=== PATIENT | female | born 1960 | race African-American/Black ===

== ENCOUNTER 2021-11-30 19:41 | Emergency (ER) | payer MEDICARE, MEDICAID, SELFPAY ==
--- NOTE | ~2021-11-30 | XR_ITS ---
EXAMINATION: XR chest 2V Exam Date/Time: 11/30/2021 20:10 CDT CLINICAL HISTORY: LT ARM PAIN THIS MORNING INTO HER L SIDE CHEST Comparison: None available. RESULT: Lines, tubes, and devices: None. Lungs and pleura: Clear. Cardiomediastinal silhouette: Unremarkable cardiomediastinal silhouette. Other: No acute osseous or upper abdominal finding. IMPRESSION: No acute cardiopulmonary process Reviewed, dictated and finalized at location K.
--- NOTE | ~2021-11-30 | NM_ITS ---
EXAMINATION: NM pulmonary perfusion EXAM DATE: 12/01/2021 01:10 INDICATION: elevated d dimer, IV contrast allergy TECHNIQUE: A perfusion lung scan was performed. The patient was injected with 5 mCi technetium 99m M AA and imaged. The Modified PIOPED 2 criteria used for interpretation of this perfusion only study, w ith 3 possible interpretations (PE present, PE absent, nondiagnostic) based on findings present, and correlated with a recent chest x-ray. More specifically, a high probability scan will be interpreted as pulmonary embolism present. A normal or near normal scan will be interpreted as pulmonary embolism absent. And finally an intermediate probability scan will be interpreted as nondiagnostic. Correlat ion is made to chest x-ray from 11/30. FINDINGS: There are no segmental perfusion defects. IMPRESSION: Normal perfusion scan. Reviewed, dictated and finalized at location A. IMPRESSION: Normal perfusion scan.
[2021-11-30 19:37] VITALS: BP 158/81; PULSE 87; RESP 16; TEMP 36.9; O2SAT 99
--- NOTE | 2021-11-30 19:43 | ECG_ITS ---
Measurements Intervals [place] Rate: 75 P: 6 VT: 149 QRS: 12 QRSD: 83 T: 22 QT: 375 QTc: 421 Interpretive Statements SINUS RHYTHM BORDERLINE ST ABNORMALITY BORDERLINE ECG NO PREVIOUS ECG AVAILABLE FOR COMPARISON Electronically Signed On 12-01-2021 11:10:35 CDT by Antonio Lee M.D.
[2021-11-30 20:01] VITALS: BP 165/95; PULSE 84; RESP 20
[2021-11-30 20:09] LABS: Basophils Percent Auto 0.2 % (0.2-1.2); Hematocrit 35.9 % (37.0-47.0); Hemoglobin 11.6 g/dL (12.0-15.0); Immature Granulocyte Absolute 0.05 K/mm3 (0.00-0.031); Immature Granulocyte Percent A 0.3 % (0-0.5); Lymphocytes Percent Auto 2.9 % (18.3-44.2); Mean Corpuscular HGB Conc 32.3 g/dl (32-36); Mean Corpuscular Hemoglobin 29.4 pg (26-34); Mean Corpuscular Volume 90.9 fl (80-100); Mean Platelet Volume 9.2 fl (7.4-10.4); Monocytes Absolute Auto 0.4 K/mm3 (0.1-0.6); Monocytes Percent Auto 2.5 % (2.6-8.5); Neutrophils Absolute Auto 16.1 K/mm3 (1.3-6.7); Neutrophils Percent Auto 94.1 % (45.5-73.1); Platelet Count Result 340 k/mm3 (150-375); Red Blood Count 3.95 M/mm3 (4.2-5.4); Red Cell Distribution Width 14.4 % (11.5-14.5); White Blood Count 17.1 K/mm3 (4.5-10.0)
[2021-11-30 20:19] LABS: Prothrombin Time 13.2 Seconds (11.1-14.7)
[2021-11-30 20:20] VITALS: BP 161/92; PULSE 69; RESP 18; O2SAT 95
[2021-11-30 20:20] LABS: Partial Thromboplastin Time 24.3 SECONDS (22.3-36.8)
[2021-11-30 20:22] LABS: Alanine Aminotransferase 12 U/L (4-35); Albumin Level 4.9 g/dL (3.5-5.1); Alkaline Phosphatase 117 U/L (38-126); Anion Gap 11 mmol/L (8-16); Aspartate Amino Transferase 23 U/L (14-36); Bilirubin,Total 0.4 mg/dL (0.2-1.3); Blood Urea Nitrogen 9 mg/dL (7-17); Calcium 9.9 mg/dL (8.4-10.2); Carbon Dioxide 24 mmol/L (22-30); Chloride 103 mmol/L (98-107); Estimated CRCL calculation 83 ml/min; Estimated Glomerular Filt Rate > 60; Glucose 139 mg/dL (65-110); Lipase 113 U/L (23-300); Potassium 3.5 mmol/L (3.4-5.0); Sodium 138 mmol/L (137-145)
[2021-11-30 20:31] VITALS: BP 169/83; PULSE 77; RESP 12; O2SAT 96
[2021-11-30 20:34] LABS: Troponin I < 0.012 ng/mL (0.000-0.034)
--- NOTE | 2021-11-30 20:39 | ED.GENADULT ---
HPI - General Adult General Chief complaint: Chest Pain Stated complaint: left arm pain radiating to chest Time Seen by Provider: 11/30/21 19:44 Source: patient History of Present Illness HPI narrative: 61-year-old female presented to the emergency department for evaluation of left arm pain. Patient reports a history of osteoarthritis states that she began having pain in her fingers this morning. Patient states over the course of the day the pain progressed to her wrist elbow shoulder and now into her chest. Pain is very reproducible with palpation and movement. Patient does have history of rheumatoid arthritis. Patient did take [place] for pain control earlier. Patient also took gabapentin. Related Data Home Medications Medication Instructions Recorded Confirmed acetaminophen [Tylenol Arthritis] mg PO 11/30/21 albuterol sulfate [Ventolin HFA] INHALATION 11/30/21 alendronate mg PO 11/30/21 amlodipine 5 mg PO DAILY 11/30/21 clonazepam 11/30/21 clonidine HCl 0.2 mg PO BID 11/30/21 diclofenac sodium TOPICAL 11/30/21 fluticasone propionate INTRANASAL 11/30/21 folic acid 1 mg PO DAILY 11/30/21 furosemide 80 mg PO DAILY 11/30/21 gabapentin 400 mg PO TID 11/30/21 hydrocodone-acetaminophen 11/30/21 11/30/21 levothyroxine 88 mcg PO DAILY 11/30/21 losartan 11/30/21 montelukast mg 11/30/21 pantoprazole PO 11/30/21 potassium chloride 20 meq PO DAILY 11/30/21 prednisone 1 mg PO DAILY 11/30/21 rivaroxaban [Xarelto] mg 11/30/21 tiotropium-olodaterol [Stiolto INHALATION 11/30/21 Respimat] triamcinolone acetonide TOPICAL 11/30/21 Allergies Allergy/AdvReac Type Severity Reaction Status Date / Time Iodinated Contrast Media Allergy Anaphylactic Verified 11/30/21 20:55 Shock iohexol Allergy Anaphylactic Verified 11/30/21 20:46 [From contrast - CT, X-RAY] Shock Review of Systems Review of Systems: CONSTITUTIONAL: Denies fever, chills, or sweats. EYES: Denies visual changes, redness, or discharge. ENT: Denies rhinorrhea, congestion, sore throat, or otalgia. CARDIOVASCULAR: Denies chest pain, palpitations, or edema. RESPIRATORY: Denies cough or dyspnea. GASTROINTESTINAL: Denies abdominal pain, nausea, vomiting, or diarrhea. GENITOURINARY: Denies dysuria or hematuria. SKIN: Denies rash or itching. MUSCULOSKELETAL: Left arm pain NEUROLOGIC: Denies headache, numbness, or weakness. Exam Narrative: APPEARANCE: Well appearing, no pain, no distress, well-nourished. HEAD: normocephalic, atraumatic. EYES: PERRLA/EOMI, conjunctivae clear. NOSE: Normal no drainage NECK: Supple. No adenopathy, no masses. RESPIRATORY: Airway patent, respirations nonlabored. Clear to auscultation bilaterally, no rales, rhonchi, wheezing. CARDIOVASCULAR: Regular rate and rhythm without murmurs rubs or gallops. ABDOMINAL: Soft, nontender, nondistended, normal bowel sounds MUSCULOSKELETAL: Moves all extremities. Reproducible left arm pain from fingertips to shoulder. Reproducible left shoulder pain with palpation NEURO: Alert. Cranial nerves II through XII intact. Grossly intact SKIN: Warm, dry. Normal Color Course Course Emergency Course: Patient does have a leukocytosis but patient is on daily prednisone. Patient's D-dimer was elevated. Patient has a dye allergy so VQ scan was ordered. VQ scan showed no evidence of pulmonary embolism. Patient had negative serial troponins. Patient's EKG showed normal sinus rhythm with no evidence of acute STEMI. Patient was updated on the results of her work-up. Patient will have close follow-up with her primary care physician. All questions and concerns were addressed patient was in no distress at time of discharge from the emerge department. Vital Signs Vital signs: Vital Signs Temperature 98.5 F 11/30/21 19:37 Pulse Rate 87 11/30/21 19:37 Respiratory Rate 16 11/30/21 19:37 Blood Pressure 158/81 H 11/30/21 19:37 Pulse Oximetry 99 11/30/21 19:37 Temperature 98.5 F
[2021-11-30] MEDS: ASPIRIN 81 MG CHEWABLE TABLET 324 MG PO (20:45)
[2021-11-30 22:01] VITALS: BP 155/80; PULSE 63; RESP 24; O2SAT 97
[2021-11-30 23:04] LABS: Troponin I < 0.012 ng/mL (0.000-0.034)
[2021-12-01] VITALS: PULSE 71; RESP 16; O2SAT 97
[2021-12-01 02:01] VITALS: BP 147/85; PULSE 66; RESP 10; O2SAT 98
[2021-12-01 03:10] VITALS: BP 150/90; PULSE 63; RESP 16; O2SAT 97
== END 2021-12-01 03:10 | disposition home or self-care (01) ==
PROVIDERS: Emergency Provider Emergency Medicine; PCP Family Medicine
DX: M79.602 Pain in left arm (principal); Z79.01 Long term (current) use of anticoagulants; R94.31 Abnormal electrocardiogram [ECG] [EKG]
CPT/HCPCS: 36415; 71046; 78580; 80053; 83690; 84484; 85025; 85380; 85610; 85730; 93005; 99284; A9270; A9540

== ENCOUNTER 2022-07-27 02:01 | Observation (INO) | payer MEDICARE, MEDICAID, SELFPAY ==
[2022-07-27] VITALS (15 sets, daily range): BP systolic 107–143; BP diastolic 61–85; PULSE 58–118; RESP 12–31; TEMP 36.4–36.7; O2SAT 97–100; BMI 29.9; BMI 30.3
--- NOTE | ~2022-07-27 | CT_ITS ---
EXAMINATION: CT abdomen pelvis wo con DATE: 07/27/2022 03:11 INDICATION: Epigastric abdominal pain. Nausea, vomiting, and diarrhea. TECHNIQUE: Computed tomography (CT) of the abdomen and pelvis was performed without intravenous contr ast. Automated exposure control and iterative reconstruction technique were employed. The dose-length product was 476.10 mGy-cm. COMPARISON: None. FINDINGS: The visualized portions of the lung bases demonstrate mild atelectasis. No pleural effusion . The heart size is normal. No pericardial effusion. There is a small sliding hiatal hernia. The live r is normal. There is a gallstone in the gallbladder, which is normal in size. Calcifications in the spleen are consistent with old granulomatous disease. The pancreas, adrenal glands, and left kidney a re normal. There is a 2 mm stone in right kidney. Calcified uterine fibroids are noted. There are no dilated loops of bowel. There is prominent fat deposition in the villanueva of the ascending and transvers e colon, likely secondary to obesity. The appendix is normal. There are no pathologically enlarged ly mph nodes. There is no free intraperitoneal fluid. There is mild thoracolumbar spondylosis. IMPRESSION: 1. Cholelithiasis. No evidence of acute cholecystitis. 2. Small sliding hiatal hernia. Reviewed, dictated and finalized at location A. E WORKER
--- NOTE | ~2022-07-27 | US_ITS ---
EXAMINATION: US abdomen limited DATE: 07/27/2022 10:53 INDICATION: Acute versus chronic cholecystitis. TECHNIQUE: Multiple grayscale and Doppler ultrasound images of the abdomen were obtained. COMPARISON: CT dated 07/27/2022 FINDINGS: The pancreatic head and body are normal in appearance. The pancreatic tail is not visualized. Visual ized portion of the proximal to mid abdominal aorta and inferior vena cava are normal. Liver has norm al echogenicity and contour, with a smooth surface. No liver lesion identified. No intrahepatic bilia ry duct dilation suspected. Portal venous flow was seen in the hepatopetal, normal direction and has normal Doppler waveform. Visualized portion of the right kidney demonstrates normal contour and echog enicity with no hydronephrosis. 4.1 cm peripherally echogenic and shadowing gallstone at the fundus o f the otherwise normal-appearing gallbladder with no dilation wall thickening to suggest acute cholec ystitis. Sonographic Marrufo sign was reported as negative by the tire man. The common bile duct me asures 4 mm, which is normal. IMPRESSION: 1. Cholelithiasis. Reviewed, dictated and finalized at location A. OMICS CONSULTANT IMPRESSION: 1. Cholelithiasis.
--- NOTE | ~2022-07-27 | XR_ITS ---
EXAMINATION: XR chest 1V portable DATE: 07/27/2022 02:42 INDICATION: Chest pain. TECHNIQUE: A single frontal view of the chest was obtained. COMPARISON: Chest 2 views 11/30/2021, CT abdomen and pelvis 07/27/2022 FINDINGS: There is no pneumonia, pleural effusion, or pneumothorax. The heart size is normal. IMPRESSION: 1. No acute cardiopulmonary disease. Reviewed, dictated and finalized at location A. ETOLOGIST
--- NOTE | 2022-07-27 02:03 | ECG_ITS ---
Measurements Intervals [place] Rate: 109 P: 27 MS: 132 QRS: 42 QRSD: 77 T: 78 QT: 303 QTc: 409 Interpretive Statements SINUS TACHYCARDIA NONSPECIFIC ST & T-WAVE ABNORMALITY ABNORMAL RHYTHM ECG NO PREVIOUS ECG AVAILABLE FOR COMPARISON Electronically Signed On 07-27-2022 6:24:46 LABORER/KEY MAN by Johan Cummins M.D.
--- NOTE | 2022-07-27 02:23 | ED.CHESTPAIN ---
HPI - Chest Pain General Chief Complaint: Chest Pain Stated Complaint: BACK AND CHEST PAIN Related Data Home Medications Medication Instructions Recorded Confirmed acetaminophen 650 mg mg PO 11/30/21 tablet,extended release albuterol sulfate 90 mcg/actuation inhalation 11/30/21 aerosol inhaler (Ventolin HFA) alendronate 70 mg tablet mg PO 11/30/21 amlodipine 5 mg tablet 5 mg PO DAILY 11/30/21 clonazepam 0.5 mg tablet 11/30/21 clonidine HCl 0.2 mg tablet 0.2 mg PO BID 11/30/21 diclofenac sodium 1 % topical gel topical 11/30/21 fluticasone propionate 50 intranasal 11/30/21 mcg/actuation nasal spray,suspension folic acid 1 mg tablet 1 mg PO DAILY 11/30/21 furosemide 80 mg tablet 80 mg PO DAILY 11/30/21 gabapentin 400 mg capsule 400 mg PO TID 11/30/21 hydrocodone 7.5 mg-acetaminophen 11/30/21 11/30/21 325 mg tablet levothyroxine 88 mcg tablet 88 mcg PO DAILY 11/30/21 losartan 50 mg tablet 11/30/21 montelukast 10 mg tablet mg 11/30/21 pantoprazole 40 mg tablet,delayed PO 11/30/21 release potassium chloride 20 mEq 20 meq PO DAILY 11/30/21 tablet,extended release prednisone 1 mg tablet 1 mg PO DAILY 11/30/21 rivaroxaban 20 mg tablet (Xarelto) mg 11/30/21 tiotropium 2.5 mcg-olodaterol 2.5 inhalation 11/30/21 mcg/actuation mist for inhalation (Stiolto Respimat) triamcinolone acetonide 0.1 % topical 11/30/21 topical ointment Allergies Allergy/AdvReac Type Severity Reaction Status Date / Time Iodinated Contrast Media Allergy Severe Other Verified 07/27/22 02:09 iohexol Allergy Severe Other Verified 07/27/22 02:09 [From contrast - CT, X-RAY] morphine Allergy Intermediate Itching Verified 07/27/22 02:09 Contrast Media Allergy Severe Other Uncoded 07/27/22 02:09 [facility] [place] Family History Family History (System 04/16/22 @ 11:04 by Arley Haque) Mother Family history of glaucoma Family history of rheumatoid arthritis Family history of arthritis Sibling Asthma Father Family history of alcoholism Grandparent Carcinoma of colon Other Family history of thyroid disease Social History Social History (System 04/16/22 @ 11:04 by Arley Haque) Smoking status: Never smoker Alcohol intake: never Course Course Emergency Course: Patient states she does have a history of lupus is currently on methotrexate and prednisone Discussed with Dr. Leach presentation work-up recommends admission of the patient with patient started on Zosyn Discussed with Dr. Marroquin agrees with admission Discussed with patient and family results of workup and diagnosis. Discussed need for admission. Patient and family understand and agree to current treatment plan Vital Signs Vital signs: Vital Signs Temperature 97.9 F 07/27/22 01:59 Pulse Rate 117 H 07/27/22 01:59 Respiratory Rate 20 07/27/22 01:59 Blood Pressure 143/85 H 07/27/22 01:59 Pulse Oximetry 98 07/27/22 01:59 Oxygen Delivery Room Air 07/27/22 01:59 Temperature 97.9 F 07/27/22 01:59 Pulse Rate 81 07/27/22 05:27 Respiratory Rate 18 07/27/22 05:27 Blood Pressure 107/67 07/27/22 05:27 Pulse Oximetry 98 07/27/22 05:27 Oxygen Delivery Room Air 07/27/22 01:59 MDM - Chest Pain Lab Data 07/27/22 02:09 07/27/22 02:09 Labs: Lab Results 07/27/22 07/27/22 07/27/22 Range/Units 02:09 02:09 02:48 WBC 13.3 H (4.5-10.0) K/mm3 RBC 4.39 (4.2-5.4) M/mm3 Hgb 12.3 (12.0-15.0) g/dL Hct 39.1 (37.0-47.0) % MCV 89.1 (80-100) fl MCH 28.0 (26-34) pg MCHC 31.5 L (32-36) g/dl RDW 14.4 (11.5-14.5) % Plt Count 310 (150-375) k/mm3 MPV 9.4 (7.4-10.4) fl Immature Gran % (Auto) 0.3 (0-0.5) % Neut % (Auto) 93.5 H (45.5-73.1) % Lymph % (Auto) 5.0 L (18.3-44.2) % Lamb % (Auto) 1.0 L (2.6-8.5) % Eos % (Auto) 0.1 (0-4.4) % Baso % (Auto) 0.1 L (0.2-1.2) % Lymph # (Auto) 0.67 L (0.9-3.2) K/m
[2022-07-27 02:25] LABS: Basophils Percent Auto 0.1 % (0.2-1.2); Eosinophils Percent Auto 0.1 % (0-4.4); Hematocrit 39.1 % (37.0-47.0); Hemoglobin 12.3 g/dL (12.0-15.0); Immature Granulocyte Absolute 0.04 K/mm3 (0.00-0.031); Immature Granulocyte Percent A 0.3 % (0-0.5); Lymphocytes Absolute Auto 0.67 K/mm3 (0.9-3.2); Mean Corpuscular HGB Conc 31.5 g/dl (32-36); Mean Corpuscular Volume 89.1 fl (80-100); Mean Platelet Volume 9.4 fl (7.4-10.4); Monocytes Absolute Auto 0.1 K/mm3 (0.1-0.6); Neutrophils Absolute Auto 12.4 K/mm3 (1.3-6.7); Neutrophils Percent Auto 93.5 % (45.5-73.1); Platelet Count Result 310 k/mm3 (150-375); Red Blood Count 4.39 M/mm3 (4.2-5.4); Red Cell Distribution Width 14.4 % (11.5-14.5); White Blood Count 13.3 K/mm3 (4.5-10.0)
[2022-07-27 02:43] LABS: Alanine Aminotransferase 46 U/L (6-35); Albumin Level 4.8 g/dL (3.5-5.1); Alkaline Phosphatase 110 U/L (38-126); Anion Gap 11 mmol/L (8-16); Aspartate Amino Transferase 157 U/L (14-36); Bilirubin,Total 0.8 mg/dL (0.2-1.3); Blood Urea Nitrogen 6 mg/dL (7-17); Calcium 9.5 mg/dL (8.4-10.2); Carbon Dioxide 26 mmol/L (22-30); Chloride 102 mmol/L (98-107); Estimated CRCL calculation 82 ml/min; Estimated Glomerular Filt Rate > 60; Glucose 134 mg/dL (65-110); Lipase 134 U/L (23-300); Potassium 3.4 mmol/L (3.4-5.0); Sodium 139 mmol/L (137-145)
[2022-07-27] MEDS: SODIUM CHLORIDE 0.9% IV 1,000 ML 999 ML IV CONT (02:49)
[2022-07-27] MEDS: ONDANSETRON INJ 4 MG/2 ML VIAL IV PUSH (02:49)
[2022-07-27 02:53] LABS: Troponin I < 0.012 ng/mL (0.000-0.034)
[2022-07-27 03:09] LABS: INR 1.1; Partial Thromboplastin Time 23.2 SECONDS (22.3-36.8); Prothrombin Time 13.7 Seconds (11.1-14.7)
[2022-07-27 03:31] LABS: Influenza A QL RT-PCR Negative (Negative); Influenza B QL RT-PCR Negative (Negative); SARS-CoV-2 RNA PCR Negative
[2022-07-27 05:26] LABS: Troponin I 0.013 ng/mL (0.000-0.034)
--- NOTE | 2022-07-27 06:31 | ADMGEN ---
This patient, Betsy Mena, was admitted to [facility] Surg Room 332-01 at 0615. Patient/family oriented to hospital policies and general routines including ID bracelet, bed and alarms, visiting hours, pain management, procedures, bathroom and other care routines, personal items, smoking policy, room service/diet, and visiting hours. Information on how to activate the Rapid Response Team has been discussed. Patient/Family are encouraged to report perceived risks to care and to ask questions if they do not understand what they are told or what they should do.
[2022-07-27] MEDS: SODIUM CHLORIDE 0.9% IV 1,000 ML 125 ML IV CONT ×2 (08:55→19:40)
--- NOTE | 2022-07-27 09:17 | PM.IMHP ---
H&P: HPI History of Present Illness Date/Time: 07/27/22 09:17 Chief Complaint: Right upper quadrant pain, vomiting Narrative: 62-year-old female with a history of hypertension, RA, lupus, Sjogren syndrome, COPD and DVT. Patient presents to the ER on 07/27/2022. Patient states that in the video tape editor hours she had developed diffuse back pain and thought she had COVID. Patient stated that she had tried repositioning how she was laying in bed to ease her pain without success. Patient called EMS and patient arrived to the ED. during this time patient had 2 bouts of emesis and her pain had moved from her back to the epigastric/right upper quadrant area. Patient describes the pain as a gnawing abdominal pain. Patient also had associated shortness of breath and exhalation pain. Her previous medial included ice cream, chocolate cake and Del noodles. Chest x-ray revealed no acute cardiopulmonary process. CT abdomen pelvis revealed gallbladder distension containing 2.5 cm calculus, thickening villanueva of the ascending and transverse colon, cannot exclude colitis. General surgery consulted. Abdominal ultrasound revealed cholelithiasis. On admission patient white blood cell count was 17.1, hemoglobin 11.6, and D-dimer 1.2. Patient put on NPO and IV fluids initiated. Patient started Zosyn, Zofran and Protonix. Possible surgery planned for tomorrow. Will monitor patient's white blood cell count. Appreciate General surgery's consultation and recommendations. Patient denies current abdominal pain, nausea, vomiting, fever, diarrhea, chest pain and shortness of breath. Review of Systems Review of Systems: All systems reviewed & are unremarkable except as noted in HPI and below [facility] Past Medical History Medical History (Updated 07/27/22 @ 16:02 by Fanny Gallagher PA-C) COPD (chronic obstructive pulmonary disease) History of DVT (deep vein thrombosis) 2019 History of TIA (transient ischemic attack) 2006 Hypertension Lupus Peripheral vascular disease Rheumatoid arthritis Sjogren syndrome with dental involvement Surgical History Surgical History History of laparotomy x2 for ectopic pregnancies Family History Family History (Updated 07/27/22 @ 16:02 by Fanny Gallagher PA-C) Mother Family history of glaucoma Family history of rheumatoid arthritis Family history of arthritis Diabetes mellitus Sibling Asthma Father Family history of alcoholism Grandparent Carcinoma of colon Other Family history of thyroid disease Social History Social History (Updated 07/27/22 @ 16:03 by Fanny Gallagher PA-C) Social History: Patient lives alone in a apartment without pets. Patient states that she drinks 1 glass of wine 1 time a month and does not partake in nicotine/tobacco products or illicit drugs. Smoking status: Never smoker Second hand tobacco smoke exposure: No Alcohol intake: current Drinks per week: 1 Substance use: never Substance use type: does not use Lack of Transportation: YES Lack of Food: Often True Current Housing: I Have Housing Concerned About Future Housing: No Difficulty Paying Gas/Electric Bills: YES Difficulty Paying for Meds: No Currently Unemployed: No Education: Associate Degree Difficulty w/ Childcare or Family Care: No Spiritual care concerns: No Meds Home Medications and Allergies Home Medications Medication Instructions Recorded Confirmed Type acetaminophen 650 mg 650 mg PO PRN PRN Pain 11/30/21 07/27/22 History tablet,extended release albuterol sulfate 90 mcg/actuation 90 mcg inhalation DAILY 11/30/21 07/27/22 History aerosol inhaler (Ventolin HFA) alendronate 70 mg tablet 70 mg PO DAILY 11/30/21 07/27/22 History clonidine HCl 0.2 mg tablet 0.2 mg PO BID 11/30/21 07/27/22 History diclofenac sodium 1 % topical gel 1 g topical DAILY 11/30/21 07/27/22 History fluticasone propionate 5
[2022-07-27 09:26] LABS: Troponin I < 0.012 ng/mL (0.000-0.034)
--- NOTE | 2022-07-27 09:41 | PM.CNGS ---
Assessment and Plan Assessment and plan (1) Cholelithiasis: Code(s): K80.20 - Calculus of gallbladder without cholecystitis without obstruction Status: Acute Assessment and Plan: CT scan reviewed and has been read by our Radiologist now this morning. Virtual radiologist suggested a 2.5 cm gallstone with gallbladder distention and possible wall thickening of the ascending and transverse colon, possible colitis. Our Radiologist this morning read the CT as cholelithiasis with no evidence of acute cholecystitis. There is also mention of prominent fat deposition int he villanueva of the ascending and transverse colon likely secondary to obesity. Patient's back pain and abdominal pain has completely resolved. Her WBC count was 13,300 and AST/ALT were slightly elevated. She is also on steroids which could account for the slight increase in her WBC count. Will order a RUQ abdominal ultrasound today to further evaluate for acute cholecystitis. Discussed surgical versus conservative treatment options and that we will decide on a definitive treatment plan after reviewing the ultrasound results. Will keep her NPO for now with IV fluids and analgesics as needed. (2) Elevated LFTs: Code(s): R79.89 - Other specified abnormal findings of blood chemistry Status: Acute Assessment and Plan: AST and ALT slightly elevated, new from most recent labs in November. Could be related to cholecystitis. See plan above. Monitor labs. (3) Immunosuppression due to drug therapy: Code(s): D84.821 - Immunodeficiency due to drugs; Z79.899 - Other fpc (current) drug therapy Status: Acute Assessment and Plan: On combination therapy for her Lupus and RA, including methotrexate, prednisone, hydroxychloroquine, and Orencia infusions. She receives Orencia infusions weekly, but skipped last week's dose due to being exposed to her grandchildren who tested positive for COVID. She was actually scheduled for her next infusion today. (4) Rheumatoid arthritis: Code(s): M06.9 - Rheumatoid arthritis, unspecified Status: Chronic (5) Anticoagulant long-term use: Code(s): Z79.01 - shelter (current) use of anticoagulants Status: Acute Assessment and Plan: Currently taking Xarelto for hx of DVT two years ago. Last took Xarelto 2 nights ago around 10:30 pm. Hold Xarelto for now. If Hospitalist wishes to add pharmacologic DVT prophylaxis, it is okay with our service to use prophylactic-dosed Lovenox. (6) Lupus: Code(s): M32.9 - Systemic lupus erythematosus, unspecified Status: Chronic (7) Hypertension: Code(s): I10 - Essential (primary) hypertension Status: Chronic (8) Peripheral vascular disease: Code(s): I73.9 - Peripheral vascular disease, unspecified Status: Chronic Assessment and Plan: Follows with a vascular surgeon. Reportedly for vascular disease and she believes she was referred to him after the DVTs. She sees Dr. Cooper at [facility]. She does report that he offered to place an IVC filter prior to her having a knee replacement that has not yet been scheduled. Will discuss with Dr. Leach. (9) History of DVT (deep vein thrombosis): Code(s): Z86.718 - Personal history of other venous thrombosis and embolism Status: Acute Assessment and Plan: Taking Xarelto. (10) Obesity (BMI 30-39.9): Code(s): E66.9 - Obesity, unspecified Status: Acute Assessment and Plan: Encouraged diet and lifestyle modifications to promote weight loss. She is already seeing a dietitian regarding a heart healthy diet and we have provided a low fat diet instruction sheet for her gallstones. Plan I have discussed the patient's case and plan of care with Dr. Leach. Thank you for allowing us to see the patient in consultation and we will continue to follow along with you. History of Present Illness Consult details Consult date: 07/27/22 Reason fo
[2022-07-27] MEDS: PANTOPRAZOLE SODIUM IV 40 MG VIAL IV PUSH ×2 (11:48→22:58)
[2022-07-27] MEDS: GABAPENTIN 400 MG CAPSULE PO (17:48)
[2022-07-27] MEDS: cloNIDine HCL 0.2 MG TABLET PO (17:50)
[2022-07-27] MEDS: ENOXAPARIN 40 MG/0.4 ML SYRINGE SUB-Q (21:03)
[2022-07-27] MEDS: TRIAMCINOLONE ACET 0.1% OINT 15 GM TUBE 0.1 APPLIC TOPICAL (21:04)
[2022-07-27] MEDS: MONTELUKAST SODIUM 10 MG TABLET PO (22:58)
[2022-07-28] MEDS: LEVOTHYROXINE SODIUM 88 MCG TABLET PO (05:46)
[2022-07-28 06:00] VITALS: BP 103/66; PULSE 52; RESP 20; TEMP 36.4; O2SAT 97
[2022-07-28 06:39] LABS: Basophils Percent Auto 0.2 % (0.2-1.2); Eosinophils Absolute Auto 0.1 K/mm3 (0-0.3); Eosinophils Percent Auto 0.8 % (0-4.4); Hematocrit 32.1 % (37.0-47.0); Hemoglobin 10.1 g/dL (12.0-15.0); Immature Granulocyte Absolute 0.03 K/mm3 (0.00-0.031); Immature Granulocyte Percent A 0.4 % (0-0.5); Lymphocytes Absolute Auto 1.17 K/mm3 (0.9-3.2); Lymphocytes Percent Auto 13.9 % (18.3-44.2); Mean Corpuscular HGB Conc 31.5 g/dl (32-36); Mean Corpuscular Hemoglobin 28.1 pg (26-34); Mean Corpuscular Volume 89.4 fl (80-100); Mean Platelet Volume 9.9 fl (7.4-10.4); Monocytes Absolute Auto 0.4 K/mm3 (0.1-0.6); Monocytes Percent Auto 4.3 % (2.6-8.5); Neutrophils Absolute Auto 6.8 K/mm3 (1.3-6.7); Neutrophils Percent Auto 80.4 % (45.5-73.1); Platelet Count Result 274 k/mm3 (150-375); Red Blood Count 3.59 M/mm3 (4.2-5.4); Red Cell Distribution Width 14.7 % (11.5-14.5); White Blood Count 8.4 K/mm3 (4.5-10.0)
[2022-07-28 06:51] LABS: Alanine Aminotransferase 125 U/L (6-35); Albumin Level 3.9 g/dL (3.5-5.1); Alkaline Phosphatase 101 U/L (38-126); Anion Gap 7 mmol/L (8-16); Aspartate Amino Transferase 100 U/L (14-36); Bilirubin,Total 0.6 mg/dL (0.2-1.3); Blood Urea Nitrogen 4 mg/dL (7-17); Calcium 8.9 mg/dL (8.4-10.2); Carbon Dioxide 24 mmol/L (22-30); Chloride 109 mmol/L (98-107); Estimated CRCL calculation 83 ml/min; Estimated Glomerular Filt Rate > 60; Glucose 121 mg/dL (65-110); Potassium 2.9 mmol/L (3.4-5.0); Sodium 140 mmol/L (137-145)
[2022-07-28 07:00] LABS: Lactic Acid Reflex 1.5 mmol/L (0.7-2.0)
[2022-07-28 08:00] VITALS: PULSE 52; RESP 20; O2SAT 97
[2022-07-28] MEDS: UMECLIDINIUM/VILANTEROL 62.5-25 MCG ELLIPTA 1 PUFF INHALATION (08:29)
[2022-07-28] MEDS: ALBUTEROL SULFATE (*SP) AEROSOL 1 PUFF INHALATION (08:29)
[2022-07-28] MEDS: cloNIDine HCL 0.2 MG TABLET PO ×2 (09:18→17:49)
[2022-07-28] MEDS: predniSONE 1 MG TABLET 4 MG PO (09:18)
[2022-07-28] MEDS: GABAPENTIN 400 MG CAPSULE PO ×2 (09:18→17:49)
[2022-07-28] MEDS: FUROSEMIDE 80 MG TABLET PO (09:18)
[2022-07-28] MEDS: FOLIC ACID 1 MG TABLET PO (09:19)
[2022-07-28] MEDS: amLODIPine BESYLATE 5 MG TABLET 10 MG PO (09:19)
[2022-07-28] MEDS: LOSARTAN POTASSIUM 50 MG TABLET PO (09:19)
[2022-07-28] MEDS: PANTOPRAZOLE SODIUM IV 40 MG VIAL IV PUSH (09:20)
[2022-07-28] MEDS: TRIAMCINOLONE ACET 0.1% OINT 15 GM TUBE 0.1 APPLIC TOPICAL (09:20)
[2022-07-28] MEDS: FLUTICASONE PROPIONATE 0.05% NA SPR 16 GM BTL (*BKC) 1 SPRAY NASAL (09:20)
[2022-07-28] MEDS: DICLOFENAC SODIUM 1% 100 GM GEL (*BKC) 1 APPLIC TOPICAL (09:20)
--- NOTE | 2022-07-28 10:22 | PM.PNGS ---
Progress Note: A&P Assessment and Plan (1) Cholelithiasis: Code(s): K80.20 - Calculus of gallbladder without cholecystitis without obstruction Status: Acute Assessment and Plan: US showed 4.1 cm gallstone in the fundus of the gallbladder, but no inflammation to suggest cholecystitis. Will advance diet as tolerated to low fat diet. She was given instruction sheets on education for low fat diet. Okay from a surgical standpoint to discharge the patient if tolerating low fat diet. Recommended that she follow-up with her [employer] who can help set her up with a Surgeon through their healthcare system that they can work with to set up a cholecystectomy given her history. (2) Elevated LFTs: Code(s): R79.89 - Other specified abnormal findings of blood chemistry Status: Acute Assessment and Plan: AST and ALT still mildly. No signs of cholecystitis. LFTs could be elevated for a number of other etiologies. Instructed the patent to f/u with Rheumatology and her PCP for further outpatient workup. (3) Immunosuppression due to drug therapy: Code(s): D84.821 - Immunodeficiency due to drugs; Z79.899 - Other retirement (current) drug therapy Status: Acute Assessment and Plan: On combination therapy for her Lupus and RA, including methotrexate, prednisone, hydroxychloroquine, and Orencia infusions. She receives Orencia infusions weekly, but skipped last week's dose due to being exposed to her grandchildren who tested positive for COVID. F/u with Rheumatology. (4) Rheumatoid arthritis: Code(s): M06.9 - Rheumatoid arthritis, unspecified Status: Chronic (5) Anticoagulant long-term use: Code(s): Z79.01 - senior living (current) use of anticoagulants Status: Acute Assessment and Plan: Okay to resume Xarelto. (6) Lupus: Code(s): M32.9 - Systemic lupus erythematosus, unspecified Status: Chronic (7) Hypertension: Code(s): I10 - Essential (primary) hypertension Status: Chronic (8) Peripheral vascular disease: Code(s): I73.9 - Peripheral vascular disease, unspecified Status: Chronic Assessment and Plan: Follows with a vascular surgeon. Reportedly for vascular disease and she believes she was referred to him after the DVTs. She sees Dr. Cooper at [facility]. She does report that he offered to place an IVC filter prior to her having a knee replacement that has not yet been scheduled. Recommend f/u with vascular surgery prior to scheduling the cholecystectomy as an outpatient. (9) History of DVT (deep vein thrombosis): Code(s): Z86.718 - Personal history of other venous thrombosis and embolism Status: Acute Assessment and Plan: Taking Xarelto. (10) Obesity (BMI 30-39.9): Code(s): E66.9 - Obesity, unspecified Status: Acute Assessment and Plan: Encouraged diet and lifestyle modifications to promote weight loss. She is already seeing a dietitian regarding a heart healthy diet and we have provided a low fat diet instruction sheet for her gallstones. Plan I have discussed the patient's case and plan of care with Dr. Leach. Subjective Subjective Date/Time Seen: 07/28/22 10:22 Patient reports: no new complaints, feels better, tolerating liquids well and afebrile Interval history: Patient seen this morning after having breakfast. She is tolerating full liquids well. No abdominal pain, nausea, or vomiting. No other complaints at this time. Review of Systems Review of Systems: All systems reviewed & are unremarkable except as noted in HPI and below Exam Const: General: no acute distress and awake Orientation/consciousness: patient oriented x3 GI: Inspection: non-distended GI Palp: Yes Soft to palpation, No Tenderness to palpation present (GI), No Guarding due to palpation present (GI) and No Rebound tenderness present Auscultation: normal bowel sounds Neuro: General: moves all ex
[2022-07-28] MEDS: POTASSIUM CHLORIDE 20 MEQ PACKET (FOR LIQUID) 60 MEQ PO (11:04)
[2022-07-28 13:49] VITALS: BP 128/70; PULSE 66; RESP 16; TEMP 36.7; O2SAT 98
--- NOTE | 2022-07-28 15:30 | PM.DS ---
DS: Admitting Diagnosis Discharge Date 07/28/22 Admitting Diagnosis Right upper quadrant pain, cholelithiasis/cholecystitis DS: Discharge Diagnosis Discharge Diagnosis (1) Cholelithiasis: Code(s): K80.20 - Calculus of gallbladder without cholecystitis without obstruction Status: Acute (2) Hypertension: Code(s): I10 - Essential (primary) hypertension Status: Chronic (3) Lupus: Code(s): M32.9 - Systemic lupus erythematosus, unspecified Status: Chronic (4) Rheumatoid arthritis: Code(s): M06.9 - Rheumatoid arthritis, unspecified Status: Chronic (5) History of DVT (deep vein thrombosis): Code(s): Z86.718 - Personal history of other venous thrombosis and embolism Status: Acute DS: Summary Hospital Course Reason for hospitalization: Right upper quadrant pain, cholelithiasis Hospital Course: 62-year-old female with a history of hypertension, RA, lupus, Sjogren syndrome, COPD and DVT.? Patient presents to the ER on 07/27/2022.? Patient states that in the senior quality analyst hours she had developed diffuse back pain and thought she had COVID.? Patient stated that she had tried repositioning how she was laying in bed to ease her pain without success.? Patient called EMS and patient arrived to the ED. during this time patient had 2 bouts of emesis and her pain had moved from her back to the epigastric/right upper quadrant area.? Patient describes the pain as a gnawing abdominal pain.? Patient also had associated shortness of breath and exhalation pain.? Her previous medial included ice cream, chocolate cake and Del noodles.? Chest x-ray revealed no acute cardiopulmonary process.? CT abdomen pelvis revealed gallbladder distension containing 2.5 cm calculus, thickening villanueva of the ascending and transverse colon, cannot exclude colitis.? General surgery consulted.? Abdominal ultrasound revealed cholelithiasis.? On admission patient white blood cell count was 17.1, hemoglobin 11.6, and D-dimer 1.2.? Patient put on NPO and IV fluids initiated.? Patient started Zosyn, Zofran and Protonix. Abdominal ultrasound revealed cholelithiasis without cholecystitis and antibiotics were discontinued. Patient's white blood cell count decreased over the course of her hospital stay. Patient's abdominal pain dissolved with IV fluids and analgesics. On discharge patient is without pain and agreeable to go home. General surgery recommends cholecystectomy in the future once patient is able to get off of her rheumatoid medications for short period of time before surgery. General surgery recommends following up with them as an outpatient. Recommend low-fat diet. Status at Discharge Functional status at discharge: uses cane/walker Overall status at discharge: patient is progressing back to baseline Time Spent with Patient Time attestation: Total time spent providing and/or coordinating discharge services: Time spent: Greater than 30 minutes Exam Narrative: GENERAL: Comfortable, no acute distress HENMT: moist mucous membranes EYES: EOM intact b/l NECK: no lymphadenopathy RESPIRATORY: clear to auscultation CARDIO: RRR GI: soft, nontender, bowel sounds present SKIN: no rashes EXTREMITIES: no edema, redness or tenderness DS: Data Data Completed and Pending Labs on day of discharge: Labs from last 24 hours 07/28/22 07/28/22 07/28/22 05:56 05:56 05:55 WBC 8.4 RBC 3.59 L Hgb 10.1 L Hct 32.1 L MCV 89.4 MCH 28.1 MCHC 31.5 L RDW 14.7 H Plt Count 274 MPV 9.9 Immature Gran % (Auto) 0.4 Neut % (Auto) 80.4 H Lymph % (Auto) 13.9 L Hem[place]ill % (Auto) 4.3 Eos % (Auto) 0.8 Baso % (Auto) 0.2 Lymph # (Auto) 1.17 [place]ill # (Auto) 0.4 Eos # (Auto) 0.1 Baso # (Auto) 0.0 Abs Immat Gran (auto) 0.03 Absolute Neuts (auto) 6.8 H Absolute Nucleated RBC 0.0 Nucleated RBC % 0.0 Sodium 140 Potassium 2.9 L Chloride 109 H Carbon Dioxide 24
--- NOTE | 2022-07-28 18:09 | PC.NURSE ---
Pt tolerated low fat diet with regular consistence without difficulty.
== END 2022-07-28 19:10 | disposition home or self-care (01) ==
LOC: ANHED 04:45 → ANH3MEDSUR 12:56
PROVIDERS: Internal Medicine Critical Care Medicine; Admitting Provider Internal Medicine; Emergency Provider Emergency Medicine; Visit Provider Internal Medicine
DX: K80.20 Calculus of gallbladder without cholecystitis without obstruction (principal); I10 Essential (primary) hypertension; M32.9 Systemic lupus erythematosus, unspecified; M06.9 Rheumatoid arthritis, unspecified; Z86.718 Personal history of other venous thrombosis and embolism; K44.9 Diaphragmatic hernia without obstruction or gangrene; R94.31 Abnormal electrocardiogram [ECG] [EKG]; J44.9 Chronic obstructive pulmonary disease, unspecified; M35.00 Sjogren syndrome, unspecified; D84.821 Immunodeficiency due to drugs; R79.89 Other specified abnormal findings of blood chemistry; I73.9 Peripheral vascular disease, unspecified; Z20.822 Contact with and (suspected) exposure to COVID-19; Z79.1 Long term (current) use of non-steroidal anti-inflammatories (NSAID); Z79.51 Long term (current) use of inhaled steroids; Z79.891 Long term (current) use of opiate analgesic; Z79.52 Long term (current) use of systemic steroids; Z79.01 Long term (current) use of anticoagulants; Z79.899 Other long term (current) drug therapy
CPT/HCPCS: 36415; 71045; 74176; 76705; 80053; 83605; 83690; 84484; 85025; 85610; 85730; 87636; 93005; 94640; 96361; 96365; 96366; 96367; 96372; 96375; 96376; 99285; A9270; C9113; G0378; J0131; J1650; J2405; J2543; J7030

== ENCOUNTER 2024-07-01 08:26 | Emergency (ER) | payer MEDICARE, MEDICAID, SELFPAY ==
--- NOTE | 2024-07-01 08:32 | ED.URI ---
HPI - URI/Sore Throat General Chief Complaint: Upper Respiratory Infection Stated Complaint: sorethroat,bilateral ear discomfort,nasal drainage Source: patient, RN notes reviewed and old records reviewed Mode of arrival: ambulatory Limitations: no limitations History of Present Illness HPI Narrative: 64-year-old female to [facility] with complaints of sore throat, bilateral ear discomfort and nasal drainage that began last night. Patient able to tolerate fluids by mouth. Patient resting comfortably in exam room in no acute distress. Respirations even nonlabored. Patient able to speak in complete sentences without difficulty. Related Data Home Medications Medication Instructions Recorded Confirmed acetaminophen 650 mg 650 mg PO PRN PRN Pain 11/30/21 07/27/22 tablet,extended release albuterol sulfate 90 mcg/actuation 90 mcg inhalation DAILY 11/30/21 07/27/22 aerosol inhaler (Ventolin HFA) alendronate 70 mg tablet 70 mg PO DAILY 11/30/21 07/27/22 clonidine HCl 0.2 mg tablet 0.2 mg PO BID 11/30/21 07/27/22 diclofenac sodium 1 % topical gel 1 g topical DAILY 11/30/21 07/27/22 fluticasone propionate 50 50 mcg intranasal DAILY 11/30/21 07/27/22 mcg/actuation nasal spray,suspension folic acid 1 mg tablet 1 mg PO DAILY 11/30/21 07/27/22 furosemide 80 mg tablet 80 mg PO DAILY 11/30/21 07/27/22 gabapentin 400 mg capsule 400 mg PO TID 11/30/21 07/27/22 hydrocodone 7.5 mg-acetaminophen 7.5 tablet PO PRN 11/30/21 07/27/22 325 mg tablet levothyroxine 88 mcg tablet 88 mcg PO DAILY 11/30/21 07/27/22 losartan 50 mg tablet 50 mg PO DAILY 11/30/21 07/27/22 montelukast 10 mg tablet 10 mg PO HS 11/30/21 07/27/22 pantoprazole 40 mg tablet,delayed 40 mg PO HS 11/30/21 07/27/22 release prednisone 1 mg tablet 4 mg PO DAILY 11/30/21 07/27/22 rivaroxaban 20 mg tablet (Xarelto) 20 mg PO DAILY 11/30/21 07/27/22 tiotropium 2.5 mcg-olodaterol 2.5 2.5 inh inhalation DAILY 11/30/21 07/27/22 mcg/actuation mist for inhalation (Stiolto Respimat) triamcinolone acetonide 0.1 % 0.1 applic topical BID 11/30/21 07/27/22 topical ointment amlodipine 10 mg tablet 10 mg PO DAILY 07/27/22 07/27/22 cyclosporine 0.05 % eye drops in a drp 07/01/24 dropperette (Restasis) duloxetine 60 mg capsule,delayed mg PO 07/01/24 release hydroxychloroquine 200 mg tablet mg PO 07/01/24 latanoprost 0.005 % eye drops drp 07/01/24 potassium chloride 20 mEq meq PO 07/01/24 tablet,extended release(part/cryst) spironolactone 25 mg tablet mg 07/01/24 Allergies Allergy/AdvReac Type Severity Reaction Status Date / Time Iodinated Contrast Media Allergy Severe Other Verified 07/01/24 08:37 iohexol Allergy Severe Other Verified 07/01/24 08:37 [From contrast - CT, X-RAY] morphine Allergy Intermediate Itching Verified 07/01/24 08:37 Contrast Media Allergy Severe Other Uncoded 07/01/24 08:37 Review of Systems Review of Systems: All systems reviewed & are unremarkable except as noted in HPI and below Constitutional: Constitutional: Reports no additional constitutional complaints Eyes: Eyes: Reports no additional eye complaints ENT: Reports as per HPI, Reports otalgia, Reports nasal discharge and Reports sore throat Cardiovascular: Cardiovascular: Reports no additional cardiovascular complaints, Denies chest pain and Denies dyspnea Respiratory: Respiratory: Reports no additional respiratory complaints, Denies cough and Denies dyspnea Musculoskeletal: Musculoskeletal: Reports no additional musculoskeletal complaints Neurologic: Reports system reviewed and no additional complaints, except as documented Psychiatric: Psychiatric: Reports no additional psychiatric complaints [facility] Past Medical History Medical History COPD (chronic obstructive pulmonary disease) History of DVT (deep vein thrombosis) 2019 History of TIA (transient ischemic attack) 2006 Hypertension Lupus Peripheral vascular disease Rheumatoid arthritis Sjogren syndrome with dental involvement Surgical History Surgical History History of laparotomy x2 for ectopic pregnancies Family History Family History Mother Family history of glaucoma Family history of rheumatoid arthritis Family history of arthritis Diabetes mellitus Sibling Asthma Father Family history of alcoholism Grandparent Carcinoma of colon Other Family history of thyroid disease Social History Social History Social History: Patient lives alone in a apartment without pets. Patient states that she drinks 1 glass of wine 1 time a month and does not partake in nicotine/tobacco products or illicit drugs. Smoking status: Never smoker Second hand tobacco smoke exposure: No Alcohol intake: current Drinks per week: 1 Substance use: never Substance use type: does not use Lack of Transportation: YES Lack of Food: Often True Current Housing: I Have Housing Concerned About Future Housing: No Difficulty Paying Gas/Electric Bills: YES Difficulty Paying for Meds: No Currently Unemployed: No Education: Associate Degree Difficulty w/ Childcare or Family Care: No Spiritual care concerns: No Comments At the time of my signature, I reviewed and agree with the nursing past medical, surgical, social, and family history. There is no relevant family history pertinent to the patient complaint. Exam Const: General: cooperative, comfortable, no acute distress, alert and well nourished Nutritional Appearance: well nourished Orientation/consciousness: patient oriented x3 Limitations: no limitations HENMT: Head: normal to inspection Ears: external ears normal and TM abnormal with fluid behind the TM bilateral (Clear) Face/Nose/Sinus: Normal external nose present, Nasal discharge present clear, normal facial exam, No erythema and No edema Face and sinus: normal facial exam, no erythema and no edema Mouth: Yes Normal oral and palatal mucosa present Throat: posterior oropharynx abnormal erythema and postnasal drainage Eyes: General: appearance normal, both eyes and all related structures Neck: Neck: normal visual inspection, full ROM and no meningeal signs Lymphatic: no lymphadenopathy noted and no lymphedema noted Chest: Chest palpation & inspection: normal inspection of the chest Resp: Effort & Inspection: normal respiratory effort and able to speak in complete sentences Auscultation: clear to auscultation bilaterally Cardio: Jugular venous distension: no JVD Rate: regular rate Rhythm: regular rhythm Back/Spine/Pelvis: Cervical Spine: cervical ROM normal Skin: General skin exam: normal color, no rashes or lesions noted and turgor normal Neuro: General: patient oriented x3, gait normal, moves all extremities and no meningeal signs Speech: normal speech Gait exam (Neuro): Normal gait present Extrem: General: normal to inspection, full ROM and capillary refill normal Psych: Appearance: grossly normal and well kempt Course Course Emergency Course: Some parts of this dictation were generated by voice recognition software and may contain typographical and/or grammatical inaccuracies. Level of Care: Express Care Visit Vital Signs Vital signs: Vital Signs Temperature 36.6 C 07/01/24 08:41 Pulse Rate 90 07/01/24 08:41 Respiratory Rate 16 07/01/24 08:41 Blood Pressure 122/86 07/01/24 08:41 Pulse Oximetry 100 07/01/24 08:41 Temperature 36.6 C 07/01/24 08:41 Pulse Rate 90 07/01/24 08:41 Respiratory Rate 16 07/01/24 08:41 Blood Pressure 122/86 07/01/24 08:41 Pulse Oximetry 100 07/01/24 08:41 reviewed MDM - URI/Sore Throat MDM Narrative Medical decision making narrative: 64-year-old female to [facility] with complaints of sore throat, bilateral ear discomfort and nasal drainage that began last night. Patient able to tolerate fluids by mouth. Patient resting comfortably in exam room in no acute distress. Respirations even nonlabored. Patient able to speak in complete sentences without difficulty. Discharge Plan Discharge Clinical Impression: Upper respiratory infection Patient Disposition: Home, Self-Care Condition: Stable Instructions: Upper Respiratory Infection (DC) Additional Instructions: Your symptoms are likely due to a viral illness, which is not treated with antibiotics. Viral symptoms can be present for up to a few weeks. -Tylenol for fever or pain. -Antihistamine medication such as Benadryl at night and Zyrtec/Claritin/Kari during the day can help improve symptoms. -Use Flonase twice a day for 5 days then daily to help reduce the inflammation and dry up your sinuses. -Be sure to drink plenty of water with these medications at least 8 ounces with every dose and it is important to drink 8 to 10 glasses of water per day. Water is a natural decongestant -Eat and drink things that are easy to swallow, like tea or soup, or popsicles. -Oral rinses such as: Salt water gargles and/or may use topical anesthetic (eg. Chloraseptic spray) or lozenges to relieve dryness or throat pain). -Frequent hand washing or hand reinforcing steel erector is one of the best ways to prevent spread of infection. -Using a vaporizer or humidifier at night will also help thin secretions and help with coughing up phlegm. -Follow up with primary care provider in 2-3 days if condition is not improving; or seek ER visit if you have trouble breathing, cannot drink enough fluids, have muffled voice, difficulty opening your mouth, or severe swelling. Prescriptions: New fluticasone propionate [Flonase Allergy Relief] 50 mcg/actuation spray,suspension 1 spray intranasal BID Qty: 16 0RF Rx Instructions: administer into each nostril No Action latanoprost 0.005 % drops spironolactone 25 mg tablet potassium chloride 20 mEq tablet,ER particles/crystals PO hydroxychloroquine 200 mg tablet PO cyclosporine [Restasis] 0.05 % dropperette duloxetine 60 mg capsule,delayed release(DR/EC) PO amlodipine 10 mg Tablet 10 mg PO DAILY gabapentin 400 mg Capsule 400 mg PO TID acetaminophen 650 mg Tablet Extended Release 650 mg PO PRN PRN (Reason: Pain) levothyroxine 88 mcg Tablet 88 mcg PO DAILY clonidine HCl 0.2 mg Tablet 0.2 mg PO BID furosemide 80 mg Tablet 80 mg PO DAILY prednisone 1 mg Tablet 4 mg PO DAILY folic acid 1 mg Tablet 1 mg PO DAILY losartan 50 mg tablet 50 mg PO DAILY alendronate 70 mg tablet 70 mg PO DAILY hydrocodone-acetaminophen 7.5-325 mg tablet 7.5 tablet PO PRN pantoprazole 40 mg tablet,delayed release (DR/EC) 40 mg PO HS triamcinolone acetonide 0.1 % ointment 0.1 applic TOPICAL BID montelukast 10 mg tablet 10 mg PO HS albuterol sulfate [Ventolin HFA] 90 mcg/actuation HFA aerosol inhaler 90 mcg INHALATION DAILY fluticasone propionate 50 mcg/actuation spray,suspension 50 mcg INTRANASAL DAILY diclofenac sodium 1 % gel 1 g TOPICAL DAILY Xarelto 20 mg tablet 20 mg PO DAILY Stiolto Respimat 2.5-2.5 mcg/actuation mist 2.5 inh INHALATION DAILY Follow-up/Referrals: Christian,Kye Headley MD [Primary Care Provider] -
[2024-07-01 08:41] VITALS: BP 122/86; PULSE 90; RESP 16; TEMP 36.6; O2SAT 100
[2024-07-03 10:03] LABS: EDCOVIDSCREEN Negative (Negative); EDINFLUASCREEN Negative (Negative); EDINFLUBSCREEN Negative (Negative)
== END 2024-07-01 09:10 | disposition home or self-care (01) ==
PROVIDERS: Emergency Provider Nurse Practitioner Family; PCP Family Medicine
DX: J06.9 Acute upper respiratory infection, unspecified (principal); Z20.822 Contact with and (suspected) exposure to COVID-19; J44.9 Chronic obstructive pulmonary disease, unspecified; I10 Essential (primary) hypertension; I73.9 Peripheral vascular disease, unspecified; M06.9 Rheumatoid arthritis, unspecified; M35.0C Sjogren syndrome with dental involvement; Z86.718 Personal history of other venous thrombosis and embolism; Z86.73 Personal history of transient ischemic attack (TIA), and cerebral infarction without residual deficits
CPT/HCPCS: 87426; 87804; 99213; G0463

== ENCOUNTER 2024-12-28 07:27 | Emergency (ER) | payer MEDICARE, MEDICAID, SELFPAY ==
--- NOTE | ~2024-12-28 | XR_ITS ---
Clinical Indication: Chest pain PA and lateral views of the chest: Comparison: 07/27/2022 Findings: There is linear left basilar scarring or atelectasis. The lungs are otherwise clear, withou t evidence of focal consolidation or pleural effusion. Cardiomediastinal silhouette is within normal limits. Bones and soft tissues are unremarkable. Impression: Linear left basilar scarring or atelectasis, otherwise clear lungs. Reviewed, dictated and finalized at location . Impression: Linear left basilar scarring or atelectasis, otherwise clear lungs.
--- NOTE | 2024-12-28 07:28 | ECG_ITS ---
Test Date: 2024-12-28 07:39:53 Measurements Intervals [place] Rate: 75 P: 41 PA: 145 QRS: 24 QRSD: 100 T: 36 QT: 371 QTc: 416 Interpretive Statements SINUS RHYTHM MODERATE ST DEPRESSION [0.05+ mV ST DEPRESSION] ABNORMAL ECG No previous ECG available for comparison Electronically Signed On 12-29-2024 09:32:57 CDT by Pollo Carcamo M.D.
[2024-12-28 07:30] VITALS: BP 194/108; PULSE 89; RESP 20; TEMP 36.4; O2SAT 100
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
--- OUTSIDE RECORDS SUMMARY | 2024-12-28 07:30 | XMS_ITS | Encounter Summary ---
Author Organization [facility] Address [facility] [place] [address] Care Team Providers Care Glass Maker Name Role Phone Kye Gonzales MD Primary Care Provider [phone] Encounter Details Date Type Department Care Team (Late st Contact Info) Description 08/14/2024 Telephone [facility] - Rheumatology [address] [place] [address], [place] [address] Megan Quintana MD [address] [place] [address] [place] [address] Social History Tobacco Use Types Packs/Day Years Used Date Smoking Tobacco: Never Smokeless Tobacco: Never Alcohol Use Standard Drinks/Week Comments Yes 0 (1 standard drink = 0.6 oz pur e alcohol) 1 glass of wine a month PHQ-2 Answer Date Recorded Patient Health Questionnaire-2 Score 0 08/15/2024 Comments No Sex and Gender Information Value Date Recorded Sex Assigned at Not on file Legal Sex Female 6:56 AM CYBER INCIDENT ANALYST Gender Identity Not on file Sexual Orientation Not on file documented as of this encounter Functional Status * Over the past 2 weeks, how often have you been bothered by any of the following problems? Question Answer Date of Assessment Author Little interest or pleasure in doing things Not at all 08/15/2024 3:36 PM Sara Lacy Feeling down, depressed, or hopeless Not at all 08/15/2024 3:36 PM Sara Lacy Patient Health Questionnaire -2 Score 0 08/15/2024 3:36 PM Sara Lacy documented as of this encounter Miscellaneous Notes * Telephone Encounter - Betsy Christopher - 08/14/2024 4:08 PM CST Current Provider: Dr. Megan Quintana Reason for Call: Ms. Betsy Mena is scheduled w you 10/11/24 and would like to know what labs you would like her to complete. There are no lab orders in her chart. Please advise, she would like to go to [facility]. Please make sure the labs can see her orders. Thanks much. Patient Call Back Number: [phone] R INCIDENT ANALYST documented in this encounter Plan of Treatment Upcoming Encounters Date Type Department Care Team (Late st Contact Info) Description 03/28/2025 9:00 AM CDT Office Visit [facility] - Ophthalmology [address] [place] [phone] Willie Birch MD [address] [place] [address] [place] [address] documented as of this encounter Visit Diagnoses Not on filedocumented in this encounter Care Teams Glass Maker Relationship Specialty Start Date End Date Kye Gonzales MD [address] [place] [phone] PCP - General Family Medicine 11/24/23 documented as of this encounter
--- OUTSIDE RECORDS SUMMARY | 2024-12-28 07:30 | XMS_ITS | Encounter Summary ---
Author Organization [facility] Address [address] [place] [address] Phone Care Team Providers Care Ship Washer Name Role Phone Terry Solomon MD Primary Care Provider [phone] Terry Solomon MD Primary Care Provider [phone] Barbie Brown DPT Unavailable Samuel Ashraf MD Primary Care Provider + Maya Balderrama OT Unavailable [phone] Samuel Ashraf MD Primary Care Provider + Rica Cramer MD Primary Care Provider Key Gonzales MD Primary Care Provider [phone] Encounter Details Date Type Department Care Team (Late st Contact Info) Description 07/14/2017 Orders Only [facility] Scanning, Provider Social History Tobacco Use Types Packs/Day Years Used Date Smoking Tobacco: Never Assessed Comments Unknown Sex and Gender Information Value Date Recorded Sex Assigned at Not on file Legal Sex Female 2:56 AM CAKE DECORATOR Gender Identity Female 05/11/2018 8:11 AM CDT Sexual Orientation Not on file documented as of this encounter Plan of Treatment Not on file documented as of this encounter Procedures Procedure Name Priority Date/Time Associated Diagnosis Comments SCAN - RADIOLOGY/IMAGING 07/14/2017 documented in this encounter Results * SCAN - RADIOLOGY/IMAGING (07/14/2017) Anatomical Region Laterality Modality Other us Provider Scanning Final Result documented in this encounter Visit Diagnoses Not on filedocumented in this encounter Care Teams Ship Washer Relationship Specialty Start Date End Date Terry Solomon MD [address] [place] [address] PCP - General 12/01/16 11/02/17 Terry Solomon MD [address] [place], [place] [id number] PCP - General 11/03/17 10/18/19 Samuel Ashraf MD [address] [place] [address] PCP - General Family Medicine 10/20/19 02/18/22 Samuel Ashraf MD [address] [place], [place] [id number] PCP - General 10/19/19 10/19/19 Rica Cramer MD [address] [facility] [place] [address] PCP - General Family Practice 02/19/22 07/27/23 Kye Gonzales MD [address] [facility] [place] [address] PCP - General Family Medicine 07/28/23 Barbie Brown DPT [address] [facility] [address] [place] [address] Physical Therapist Physical Therapy 08/23/18 02/28/19 Maya Balderrama OT [address] [address] Occupational Therapist Occupational Therapy 11/08/19 documented as of this encounter
--- OUTSIDE RECORDS SUMMARY | 2024-12-28 07:30 | XMS_ITS | Clinical Summary ---
Author Organization [facility] Address [address] [place] [address] Care Team Providers Care Insurance Inspector Name Role Phone Kye Gonzales MD Primary Care Provider [phone] Allergies Active Allergy Reactions Criticality Noted Date Comments Amlodipine Besy-Benazepril Hcl Rash Medium 03/09/2022 Iodinated Contrast Media Rash,Anaphylaxis High 03/09/2022 Pt also coded 3 times with iodine contrast Iodine Anaphylaxis,Other (see comment),Rash High 01/30/2019 Pt states she coded on this Pt states she coded on this Lisinopril Rash Medium 06/01/2018 Morphine Itching,Unknown Low 01/11/2018 Very little itching Very little itching Zoster Vac Recomb Adjuvanted Unknown,Rash Medium 03/31/2023 Medications methotrexate 2.5 MG tabletIndication s:Lupus Take 8 tablets (20 mg total) by mouth once a week. 32 tablet 3 0 Active POTASSIUM CHLORIDE CR 10 MEQ Tab CR tabletIndication s:Lupus TAKE TWO TABLETS BY MOUTH DAILY 180 tablet 1 1 Active furosemide 80 MG tablet Take 1 tablet (80 mg total) by mouth daily. 1 Active diclofenac sodium 1 % gelIndications:L upus apply 2 grams EXTERNALLY TO THE affected AREA FOUR TIMES DAILY 100 g 2 2 Active Calcium Carbonate-Vit D-Min (CALTRATE 600+D PLUS MINERALS) 600-800 MG-UNIT Tab Take 1 each by mouth 2 (two) times a day. 2 Active FLUTICASONE PROPIONATE 50 MCG/ACT nasal sprayIndications :Lupus SPRAY ONCE IN EACH NOSTRIL DAILY 16 g 1 2 Active VENTOLIN HFA 108 (90 Base) MCG/ACT inhalerIndicatio ns:Lupus,Wheezin g INHALE TWO puffs BY MOUTH EVERY SIX HOURS NEEDED FOR wheezing 18 g 1 2 Active PREDNISONE 1 MG tabletIndication s:Lupus Take FOUR tablets (FOUR MG total) by MOUTH daily. 360 tablet 1 2 Active CLONIDINE 0.2 MG tabletIndication s:Essential hypertension TAKE ONE TABLET BY MOUTH EVERY TWELVE HOURS 180 tablet 2 Active BLACK ELDERBERRY OR Take by mouth daily. Active acetaminophen CR (TYLENOL) 650 MG Tab CR 8 hr tablet Take 1 tablet (650 mg total) by mouth daily. Active hydroxychloroqui ne (PLAQUENIL) 200 MG tablet Take 1 tablet (200 mg total) by mouth 2 (two) times daily. 2 Active gabapentin (NEURONTIN) 400 MG capsule Take 1 capsule (400 mg total) by mouth. 2 Active vitamin B-12 (CYANOCOBALAMIN) 500 MCG tablet Take by mouth daily. Active Cholecalciferol 50 MCG (2000 UT) Cap Take 5,000 Units by mouth daily. Active amLODIPine (NORVASC) 10 MG tablet Take 1 tablet (10 mg total) by mouth daily. 2 Active FISH OIL-CHOLECALCIFE ROL OR Take by mouth daily. Active losartan (COZAAR) 50 MG tabletIndication s:Lupus Take 1 tablet (50 mg total) by mouth daily. 90 tablet 1 2 Active alendronate (FOSAMAX) 70 MG tabletIndication s:Age-related osteoporosis without current pathological fracture Take 1 tablet (70 mg total) by mouth every 7 days. 4 tablet 5 3 Active zinc gluconate 50 MG Tab Take 1 tablet (50 mg total) by mouth daily. Active LYSINE HCL OR Active XARELTO 20 MG Tab tabletIndication s:Chronic deep vein thrombosis (DVT) of distal vein of lower extremity, unspecified laterality (CMS/HCC HHS/HCC) TAKE ONE TABLET BY MOUTH EVERY DAY 90 tablet 1 3 Active pantoprazole EC (PROTONIX) 40 MG tabletIndication s:Lupus TAKE ONE TABLET BY MOUTH EVERY DAY 90 tablet 2 3 Active montelukast (SINGULAIR) 10 MG tabletIndication s:Lupus TAKE ONE TABLET BY MOUTH EVERY NIGHT AT BEDTIME 90 tablet 2 3 Active spironolactone (ALDACTONE) 25 MG tablet Take 1 tablet (25 mg total) by mouth daily. 2 Active potassium chloride CR (KLOR-CON M) 20 MEQ tablet Take 1 tablet (20 mEq total) by mouth 2 (two) times daily. Active folic acid (FOLVITE) 1 MG tabletIndication s:Lupus TAKE ONE TABLET BY MOUTH EVERY DAY 90 tablet 3 Active MATTRESS, DME,Indications: Rheumatoid arthritis involving multiple sites with positive rheumatoid factor (CMS/HCC HHS/HCC),Lupus,A trophic arthritis (CMS/HCC HHS/HCC),Seropos itive rheumatoid arthritis of multiple sites (CMS/HCC HHS/HCC) Use as instructed. Pt requesting the Drive therapeutic five zone support mattress Item 11530 1 Device 3 Active DULoxetine (CYMBALTA) 60 MG capsuleIndicatio ns:Moderate episode of recurrent major depressive disorder (CMS/HCC) TAKE 1 CAPSULE(60 MG) BY MOUTH DAILY 90 capsule 3 Active triamcinolone (KENALOG) 0.1 % ointmentIndicati ons:Dermatitis APPLY EXTERNALLY TWICE DAILY FOR SKIN RASH OVER MAJORITY OF BODY. 453.6 g 1 3 Active levothyroxine (SYNTHROID) 88 MCG tablet Take 1 tablet (88 mcg total) by mouth daily. 4 Active PAXLOVID, 300/100, 20 x 150 MG & 10 x 100MG tablet pack 4 Active oseltamivir (TAMIFLU) 75 MG capsule 4 Active Abatacept (ORENCIA CLICKJECT) 125 MG/ML Solution Auto-injector Active acetaminophen-co deine (TYLENOL #3) 300-30 MG tablet Take 1 tablet by mouth every 6 (six) hours as needed. 4 Active azithromycin (ZITHROMAX) 250 MG tablet TAKE 2 TABLETS (500 MG) BY ORAL ROUTE ONCE DAILY FOR 1 DAY THEN 1 TABLET (250 MG) BY ORAL ROUTE ONCE DAILY FOR 4 DAYS Active RESTASIS 0.05 % ophthalmic emulsion Place 1 drop into both eyes 2 (two) times daily. 4 Active HYDROcodone-acet aminophen (NORCO) 7.5-325 MG tablet Active latanoprost (XALATAN) 0.005 % ophthalmic solution ADMINISTER 1 DROP IN BOTH EYES AT BEDTIME 4 Active zolpidem (AMBIEN) 10 MG tablet Active potassium chloride CR (KLOR-CON M) 10 MEQ tablet Active tiotropium bromide-olodater ol (STIOLTO RESPIMAT) 2.5-2.5 MCG/ACT inhaler INHALE TWO puffs BY MOUTH EVERY DAY Active Active Problems Patient Care Coordination No te Formatting of this note migh t be different from the original. PT Precautions: Right knee joint pain, quad tendon rupture, tendinosis ---- pmh HBP, OA, RA, Depression, Osteoporosis, Light Tia, hx of Blood clots, lupus dx 2006 Problem Noted Date Diagnosed Date Screening for colon cancer 11/06/2022 Overview (11/06/2022): Added automatically from request for surgery [id number] Family history of colon cancer 11/06/2022 Overview (11/06/2022): Added automatically from request for surgery [id number] Secondary adrenal insufficiency (HHS/HCC) 2022 COVID-19 02/02/2022 Sjogren's syndrome ([facility]/HCC) 01/03/2020 History of venous thrombosis 10/12/2019 Lupus 09/06/2019 Exophthalmos of both eyes 02/15/2019 Nuclear age-related cataract, both eyes 02/16/20 19 Atrophic vaginitis 02/14/2019 Nocturnal enuresis 02/14/2019 Urinary incontinence 02/14/2019 High risk medication use 10/05/2018 Overview (01/17/2020): Last Assessment & Plan: A/P: CMP/CBC for monitoring Age-related osteoporosis wit hout current pathological fracture 10/05/2018 Overview (01/17/2020): Last Assessment & Plan: A: patient reports she had a bone scan that showed worsening from osteopenia to osteoporosis. We currently do not have access to these records. Has had a fall since her last visit here in April. P: -Continue vitamin D supplementation -Continue PT/OT -Would consider adding bisphosphonate therapy Rupture of quadriceps tendon 01/11/2018 Delusions of parasitosis ([facility]) 12/08 Knee pain 08/05/2016 Benign essential hypertension 08/04/2016 Neuropathy 08/04/2016 Atopic dermatitis 08/04/2016 Leukocytosis 04/05/2016 Vitamin D deficiency 04/05/2016 Depressive disorder 12/18/2015 Non-toxic nodular goiter 12/18/2015 Obesity 12/18/2015 Deep venous thrombosis ([facility]) 016 Pain in the shoulder 12/04/2015 Intertrigo 11/16/2014 Itching 05/22/2013 Prurigo nodularis 05/22/2013 Overview (06/17/2022): Last Assessment & Plan: A: diagnosis of prurigo nodularis in past, seen by Dr. Ledesma. Reports the rash has become more extensive, did not respond to last treatment trialled P: -Follow up again with Dermatology Last Assessment & Plan: A: diagnosis of prurigo nodularis in past, seen by Dr. Ledesma. Reports the rash has become more extensive, did not respond to last treatment trialled P: -Follow up again with Dermatology Last Assessment & Plan: A: diagnosis of prurigo nodularis in past, seen by Dr. Ledesma. Reports the rash has become more extensive, did not respond to last treatment trialled P: -Follow up again with Dermatology Hypothyroidism 12/28/2012 Disorder of tendon of shoulder region 05/25/2012 Rheumatoid arthritis ([facility]) 1 Overview (01/17/2020): Last Assessment & Plan: A: currently on MTX 10 mg weekly, [...] her best therapeutic option is knee replacement. 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 Immunizations Immunization Administration Dates Next Due Influenza (Generic) 05/02/2018,08/26/2012,2007 Influenza Adult (Generic) 12/08/2021(Def erred: Patient Refused),08/26/2012 PFIZER COVID-19 (ORIGINAL FORMULATION, PURPLE CAP) mRNA, LNP-S, PF, 30 MCG/0.3 ML DOSE 11/14/2020,10/25/2020 Pneumococcal (Pneumovax 23) 05/19/2018, 8 Shingrix 12/13/2018 Family History Medical History Relation Comments Heart Disease Father Stroke Father Stomach cancer Maternal Aunt Colon Cancer Maternal Grandmother Stomach cancer Maternal Uncle Relation Status Comments Father Maternal Aunt Alive Maternal Grandmother Maternal Uncle Alive Mother Alive Social History Tobacco Use Types Packs/Day Years Used Date Smoking Tobacco: Never Smokeless Tobacco: Never Tobacco Cessation:Counseling Given: No Alcohol Use Standard Drinks/Week Comments Yes 1.7 (1 standard drink = 0.6 oz p ure alcohol) on Wednesday's AUDIT-C Answer Date Recorded Q1: How often do you have a drink containing alc ohol? 2-4 times a month 10/16/2020 Q2: How many drinks containi ng alcohol do you have on a typical day when you are drinking? 1 or 2 10/16/2020 Q3: How often do you have si x or more drinks on one occasion? Never 10/16/2020 PHQ-2 Answer Date Recorded Patient Health Questionnaire-2 Score 2 11/22/2023 Comments No Sex and Gender Information Value Date Recorded Sex Assigned at Female 09/20/2020 11:59 AM CREW DISPATCHER Legal Sex Female 7:31 PM CDT Gender Identity Female 09/20/2020 11:59 AM CREW DISPATCHER Sexual Orientation Straight 09/20/2020 11 :59 AM CREW DISPATCHER Last Filed Vital Signs Vital Sign Reading Time Taken Comments Blood Pressure 149/82 12/07/2023 1:24 PM CDT Pulse 68 12/07/2023 1:24 PM CDT Temperature 36.7 C (98.1 F) 11/22/2023 11:31 AM CDT Respiratory Rate 16 12/07/2023 1:24 PM CDT Oxygen Saturation 98% 01/19/2023 10:08 AM CDT Inhaled Oxygen Concentration - - Weight 74.4 kg (164 lb) 12/07/2023 1:24 PM CDT Height 160 cm (5' 3 ) 12/07/2023 1:24 PM CDT Body Mass Index 29.05 12/07/2023 1:24 PM CDT Plan of Treatment Upcoming Encounters Date Type Department Care Team (Late st Contact Info) Description 02/12/2025 10:00 AM CDT Office Visit [facility] - [address], [address] [place] [address] Jaqueline Ovalle MD [address] [place] [address] Health Maintenance Due Date Last Done Comments Cervical Cancer Screening Pa p Smear (Age 30 to 64) Every 3 Years 1961 Colorectal Cancer Screening Colonoscopy (10 Years) 1961 DTaP, Tdap and Td Vaccines ( 1 - Tdap) 01/28/1980 Mammogram Screening 2001 Zoster Vaccines (2 of 2) 02/07/2019 12/13/2018 Pneumococcal Vaccine: 50+ Years (2 of 2 - PCV) 05/19/2019 05/19/2018, 05/18/2018 Annual Physical 06/05/2022 06/05/2021 Cervical Cancer Screening Pa p with HPV Testing (Age 30 to 64) Every 5 Years 08/24/2022 08/24/2017 Cervical Cancer Screening wi th HPV 08/24/2022 COVID-19 Vaccine (3 2023-2 5 season) 2024 11/14/2020, 10/25/2020 PHQ-2 ([employer]ician [employer]) 08/16/2024 11/22/2023 RSV Immunization or 60+ Years (1 - 1-dose 75+ series) 01/28/2036 Hepatitis C Completed 03/13/2022 Meningococcal B Vaccine Aged Out No l onger eligible based on patient's age to complete this topic Meningococcal Vaccine Aged Out No desi yang eligible based on patient's age to complete this topic RSV Immunizations Under 20 Months Aged Out No longer eligible b ased on patient's age to complete this topic Procedures Procedure Name Priority Date/Time Associated Diagnosis Comments OUTSIDE CYTOPATH CERV/VAG INTERPRET (PAP) Routine 08/24/2017 12:00 AM CREW DISPATCHER from Last 3 Months or Most Recently Relevant to Health Maintenance Results * PAP SMEAR WITH HPV (08/24/2017 12:00 AM CREW DISPATCHER) 08/24/2017 [facility] Scanned SCANNING Final Resu lt [facility] from Last 3 Months or Most Recently Relevant to Health Maintenance Insurance MEDICAID [facility] MEDICAID Care Teams Insurance Inspector Relationship Specialty Start Date End Date Kye Gonzales MD PCP - General FAMILY PRACTICE 09/22/23
--- OUTSIDE RECORDS SUMMARY | 2024-12-28 07:30 | XMS_ITS | Encounter Summary ---
Author Organization [facility] Healthcare Address [address] [place] [address] Care Team Providers Care Attending Physician Name Role Phone Kye Gonzales MD Primary Care Provider Encounter Details Date Type Department Care Team (Late st Contact Info) Description 12/27/2024 - 12/27/2024 12:15 PM CDT Emergency [facility] Emergency Department [address] [place] [id number] Discharge Disposition: ED Dismiss - Never Arrived Social History Tobacco Use Types Packs/Day Years Used Date Smoking Tobacco: Never Smokeless Tobacco: Never Alcohol Use Standard Drinks/Week Comments Not Currently 0 (1 standard drink = 0.6 oz pur e alcohol) Comments Unknown Sex and Gender Information Value Date Recorded Sex Assigned at Not on file Legal Sex Female 2:56 AM ALL SOURCE INTELLIGENCE ANALYST Gender Identity Female 05/11/2018 8:11 AM CDT Sexual Orientation Not on file documented as of this encounter Medications at Time of Discharge alendronate (FOSAMAX) 70 mg tablet TAKE 1 TABLET BY MOUTH EVERY 7 DAYS BEFORE A MEAL 10/23/2023 amLODIPine (NORVASC) 10 mg tablet Take 1 tablet (10 mg total) by mouth daily 90 tablet 05/07/2023 cholecalciferol (VITAMIN D-3) 2000 unit capsule Take 1 capsule (2,000 Units total) by mouth daily cloNIDine (CATAPRES) 0.2 mg tablet Take 1 tablet (0.2 mg total) by mouth 2 (two) times a day 180 tablet 05/07/2023 diclofenac sodium (VOLTAREN) 1 % gel Apply 2 g topically 4 (four) times a day 09/08/[address] (CYMBALTA) 60 mg capsule Take by mouth daily 08/25/2023 fluticasone (FLONASE) 50 mcg/actuation nasal spray Administer 1 spray into each nostril daily folic acid (FOLVITE) 1 mg tablet TAKE ONE TABLET BY MOUTH DAILY 30 tablet 11 02/06/2019 furosemide (LASIX) 80 mg tablet TAKE 1 TABLET(80 MG) BY MOUTH DAILY 90 tablet 3 08/03/2023 gabapentin (NEURONTIN) 400 mg capsule Take 1 capsule (400 mg total) by mouth 3 (three) times a day 0 04/16/2018 hydroxychloroquine (PLAQUENIL) 200 mg tablet Take 1 tablet (200 mg total) by mouth 2 (two) times a day 10/18/2023 ketoconazole (NIZORAL) 2 % cream Apply 1 application topically daily latanoprost (XALATAN) 0.005 % ophthalmic solution ADMINISTER 1 DROP IN BOTH EYES AT BEDTIME 10/23/2023 levothyroxine (SYNTHROID, LEVOTHROID) 88 mcg tablet Take 1 tablet (88 mcg total) by mouth signal processing engineer before breakfast losartan (COZAAR) 50 mg tablet TAKE 1 TABLET(50 MG) BY MOUTH DAILY 90 tablet 3 09/16/2023 montelukast (SINGULAIR) 10 mg tablet Take 1 tablet (10 mg total) by mouth nightly omega3/dha/epa/fis h oil/vit D3 (FISH OIL-VIT D3 ORAL) Take by mouth daily pantoprazole DR (PROTONIX) 40 mg EC tablet Take 1 tablet (40 mg total) by mouth daily potassium chloride ER 20 mEq CR tablet TAKE 1 TABLET(20 MEQ) BY MOUTH TWICE DAILY 180 tablet 3 08/06/2023 predniSONE (DELTASONE) 1 mg tabletIndications: autoimmune disease Take 4 tablets (4 mg) by mouth daily 120 tablet 4 01/03/2020 Restasis 0.05 % ophthalmic emulsion 1 drop 2 (two) times a day 09/27/2023 rivaroxaban (XARELTO) 20 mg tablet Take 1 tablet (20 mg total) by mouth daily 90 tablet 3 06/24/2023 silver sulfadiazine (SILVADENE, SSD) 1 % cream Apply 1 application topically daily spironolactone (ALDACTONE) 25 mg tablet TAKE 1 TABLET(25 MG) BY MOUTH DAILY 90 tablet 3 08/03/2023 tiotropium-olodate rol (STIOLTO) 2.5-2.5 mcg/actuation inhaler Stiolto Respimat 2.5 mcg-2.5 mcg/actuation solution for inhalation Inhale 2 puff(s) by mouth every day for 90 days. triamcinolone (KENALOG) 0.1 % ointment APPLY TO ITCHY AREAS ON ARMS, CHEST, AND BACK. DO NOT APPLY TO FACE OR GROIN OR ARMPITS 908 g 4 01/03/2020 VENTOLIN HFA 90 mcg/actuation inhaler 6 03/14/2018 documented as of this encounter Discharge Disposition Disposition Code Departure Means Destination ED Dismiss - Never Arrived documented in this encounter Plan of Treatment Not on file documented as of this encounter Visit Diagnoses Not on filedocumented in this encounter Care Teams Attending Physician Relationship Specialty Start Date End Date Kye Gonzales MD PCP - General Family Medicine 07/28/23 documented as of this encounter
--- OUTSIDE RECORDS SUMMARY | 2024-12-28 07:30 | XMS_ITS | Data Portability ---
Author Organization [facility] NICOLERoyal Address [address] [place] [address] Care Team Providers Care Entry Driver Operator Name Role Phone CARLITA SÁNCHEZ Building Contractor Assessment No assessment recorded. Plan of Treatment Reminders Order Date Submit Date Provider Last Modified By Organization Details Last Modified Time Details Appointments ANY 15 2024 09:15A Pierce Gonzales MD Not available Not available Not available Lab TSH, ultra-sen sitive, serum 2024 025 [facility], [address] [facility], [address], [place], [address], 09/23/2024 09:39:[address] referral 2023 024 ATHENAGEOVANYX Ant Amos MD, [address] [facility], [address], [place], [address], 08/10/2024 12:55:20 podiatris t referral [email or web address], [address], [place], [address], 08/02/2024 09:14:51 rheumatol ogist referral 2023 024 [facility], [address], [address], [place], [address], 08/17/2024 18:02:19 Procedures None recorded. Surgeries None recorded. Imaging None recorded. Medication Orders alendrona te 70 mg tablet [address] [facility]28049, [address] [facility], [place], [place], [id number], 12/06/2024 11:03:18 Xarelto 20 mg tablet [address] [facility] #01754, [address] [facility], [place], [place], [id number], 12/06/2024 11:03:18 ferrous sulfate 325 mg (65 mg iron) tablet [address] [facility] #28522, [address] [facility], [place], [place], [id number], 12/06/2024 11:03:18 Medrol (Nicolás) 4 mg tablets in a dose pack [address] [facility] #84722, [address] [facility], [place], [place], [id number], 12/06/2024 11:03:18 Kenalog-8 0 80 mg/mL suspensio n for injection 2024 025 [email or web address] Not available 12/15/2024 11:20:35 ketorolac 60 mg/2 mL intramusc ular solution 2024 025 Not available 12/15/2024 11:20:52 amlodipin e 5 mg tablet [address] [facility]17, [address] [facility], [place], [place], [id number], 09/08/2024 14:02:18 Ventolin HFA 90 mcg/actua tion aerosol inhaler 2024 025 [facility], [address], [place], [place], [id number], 09/08/2024 13:14:48 levothyro xine 88 mcg tablet [address] [facility] #23889, [address], [place], [place], [id number], 09/08/2024 14:02:18 duloxetin e 60 mg capsule,d elayed release [address] [facility] #24769, [address], [place], [place], [id number], 09/08/2024 14:02:18 amlodipin e 10 mg tablet 2023 025 [facility] #73991, [address], [place], [place], [id number], 09/08/2024 13:12:44 Ventolin HFA 90 mcg/actua tion aerosol inhaler [address], [address], [place], [place], [id number], 08/01/2024 17:41:27 Medrol (Nicolás) 4 mg tablets in a dose pack 2023 025 [facility] #70663, [address], [place], [place], [id number], 12/04/2024 09:41:02 Zithromax Z-Nicolás 250 mg tablet 2023 024 [email or web address] [facility] #69086, [address], [place], [place], [id number], 08/01/2024 17:14:10 Restasis 0.05 % eye drops in a dropperet te [address] [facility] #14880, [address], [place], [place], [id number], 06/08/2024 14:00:13 Ventolin HFA 90 mcg/actua tion aerosol inhaler [address] [facility] #69470, [address], [place], [place], [id number], 06/08/2024 14:00:13 triamcino lone acetonide 0.1 % topical ointment [address] [facility] #83556, [address], [place], [place], [id number], 06/08/2024 14:00:13 Xarelto 20 mg tablet [address] [facility] #52707, [address], [place], [place], [id number], 06/08/2024 14:00:13 Lasix 80 mg tablet [address] [facility] #76753, [address], [place], [place], [id number], 06/08/2024 14:00:13 amlodipin e 10 mg tablet 2023 024 [email or web address] #36027, [address], [place], [place], [id number], 09/08/2024 13:12:29 losartan 50 mg tablet [address] [facility] #21011, [address], [place], [place], [id number], 06/08/2024 14:00:13 clonidine HCl 0.1 mg tablet 2023 024 [address] [facility], [address], [place], [place], [id number], 06/08/2024 14:00:13 spironola ctone 25 mg tablet 2023 [email or web address] #08496, [address], [place], [place], [id number], 06/08/2024 14:00:13 levothyro xine 88 mcg tablet 2023 [email or web address], [address], [place], [place], [id number], 06/08/2024 14:00:13 Patient TargetsNo targets recorded. Patient Instructions Encounter Date Encounter Id Patient Instructions Last Modified By Organization Details Last Modified Time 08/01/2024 [id number] A healthy lifestyle: care instructions Not available 08/01/2024 17:41:27 09/08/2024 [id number] A healthy lifestyle: care instructions Not available 09/08/2024 14:02:18 12/06/2024 [id number] A healthy lifestyle: care instructions Not available 12/06/2024 11:03:18 Reason for Referral Bone Density Technician Referral for Rheumatoid arthritis Referring Physician: Kye Gonzales [facility], Encounter Date: 06/08/2024 Liquid Hydrogen Plant Operator Referral for Bila teral plantar fasciitis Referring Physician: Kye Gonzales [facility], Encounter Date: 08/01/2024 Neurologist Referral for Idi opathic peripheral neuropathy Referring Physician: Kye Gonzales [facility], Encounter Date: 08/01/2024 Results Created Date Observation Date Name Description Value Unit Range Abnormal Flag Note LastModifiedBy Organization Detail LastModifiedTime 08/15/2008/15/2024 Urina lysis panel - Urine by Auto color UA Yellow text: straw, yellow Color UA Yello w Straw , Milagro w 08/15 5:02 PM RECONSTRUCTIVE DENTIST [facility] Not Available Not Available 09/27/2024 12:19:51 08/15/20 24 08/15/2024 Urina lysis panel - Urine by Auto clarity UA Clear text: clear Clara ty UA Clear Clear 08/15 5:02 PM RECONSTRUCTIVE DENTIST [facility] Not Available Not Available 09/27/2024 12:19:51 08/15/20 24 08/15/2024 Urina lysis panel - Urine by Auto specific gravity UA 1.008 low: 1.005h igh: 1.03 Speci fic Gravi ty UA 1.008 1.005 - 1.030 08/15 5:02 PM RECONSTRUCTIVE DENTIST [facility] Not Available Not Available 09/27/2024 12:19:51 08/15/20 24 08/15/2024 Urina lysis panel - Urine by Auto pH UA 6 pH low: 5pHhig h: 8pH pH UA 6.0 5.0 - 8.0 pH 08/15 5:02 PM RECONSTRUCTIVE DENTIST [facility] Not Available Not Available 09/27/2024 12:19:51 08/15/20 24 08/15/2024 Urina lysis panel - Urine by Auto protein UA Negati ve text: negati ve Prote in UA Negat sayra Negat sayra 08/15 5:02 PM RECONSTRUCTIVE DENTIST [facility] Not Available Not Available 09/27/2024 12:19:51 08/15/20 24 08/15/2024 Urina lysis panel - Urine by Auto glucose UA Negati ve text: negati ve Gluco se UA Negat sayra Negat sayra 08/15 5:02 PM RECONSTRUCTIVE DENTIST [facility] Not Available Not Available 09/27/2024 12:19:51 08/15/20 24 08/15/2024 Urina lysis panel - Urine by Auto ketone UA Negati ve text: negati ve Keton e UA Negat sayra Negat sayra 08/15 5:02 PM RECONSTRUCTIVE DENTIST [facility] Not Available Not Available 09/27/2024 12:19:51 08/15/20 24 08/15/2024 Urina lysis panel - Urine by Auto bilirubin UA Negati ve text: negati ve Bilir ubin UA Negat sayra Negat sayra 08/15 5:02 PM RECONSTRUCTIVE DENTIST [facility] Not Available Not Available 09/27/2024 12:19:51 08/15/20 24 08/15/2024 Urina lysis panel - Urine by Auto blood UA 2+ text: negati ve abnormal Blood UA 2+ (A) Negat sayra 08/15 5:02 PM RECONSTRUCTIVE DENTIST [facility] Not Available Not Available 09/27/2024 12:19:51 08/15/20 24 08/15/2024 Urina lysis panel - Urine by Auto nitrite UA Negati ve text: negati ve Nitri te UA Negat sayra Negat sayra 08/15 5:02 PM RECONSTRUCTIVE DENTIST [facility] Not Available Not Available 09/27/2024 12:19:51 08/15/20 24 08/15/2024 Urina lysis panel - Urine by Auto leukocyte esterase Negati ve text: negati ve Leuko cyte Jes ase Negat sayra Negat sayra 08/15 5:02 PM RECONSTRUCTIVE DENTIST [facility] Not Available Not Available 09/27/2024 12:19:51 08/15/20 24 08/15/2024 Urina lysis panel - Urine by Auto urobilinogen UA Negati ve text: negati ve mg/dL Urobi linog en UA Negat sayra Negat sayra mg/dL 08/15 5:02 PM RECONSTRUCTIVE DENTIST [facility] Not Available Not Available 09/27/2024 12:19:51 08/15/20 24 08/15/2024 Urina lysis panel - Urine by Auto RBC UA 0-2 text: none seen, 0-2, 3-5 /hpf RBC UA 0-2 None Seen, 0-2, 3-5 /HPF 08/15 5:02 PM RECONSTRUCTIVE DENTIST [facility] Not Available Not Available 09/27/2024 12:19:51 08/15/20 24 08/15/2024 Urina lysis panel - Urine by Auto WBC UA 0-5 text: none seen, 0-5 /hpf WBC UA 0-5 None Seen, 0-5 /HPF 08/15 5:02 PM RECONSTRUCTIVE DENTIST [facility] Not Available Not Available 09/27/2024 12:19:51 08/15/20 24 08/15/2024 Urina lysis panel - Urine by Auto squamous epithelial cells UA 0-2 text: none seen, 0-2, 3-5 /hpf Squam ous Epith elial Cells UA 0-2 None Seen, 0-2, 3-5 /HPF 08/15 5:02 PM RECONSTRUCTIVE DENTIST [facility] Not Available Not Available 09/27/2024 12:19:51 08/15/20 24 08/15/2024 Urina lysis panel - Urine by Auto Unknown Analyte Cultur e Not Indica larry Cultu re Not Indic ated Not Available Not Available 09/27/2024 12:19:51 08/15/20 24 08/15/2024 Urina lysis panel - Urine by Auto interpretati on and review of laboratory results Abnorm al Not Available Not Available 12:19:51 08/15/20 24 08/15/2024 C react sayra prote in [Mass /volu me] in Serum or Plasm a C reactive protein [mass/volume ] in serum or plasma 4.9 mg/dL high: 0.5mg/ dL high C-Keysha ctive Prote in 4.9 (H) <=0.5 mg/dL 08/15 5:05 PM RECONSTRUCTIVE DENTIST [facility] Not Available Not Available 09/27/2024 12:19:51 08/15/20 24 08/15/2024 C react sayra prote in [Mass /volu me] in Serum or Plasm a interpretati on and review of laboratory results Abnorm al Not Available Not Available 12:19:51 08/15/20 24 08/15/2024 Eryth rocyt e sedim entat ion rate by Westreema godoyren metho d erythrocyte sedimentatio n rate by westergren method 94 text: 0 - 30 mm/HR high Eryth rocyt e Sedim entat ion Rate Weste rgren 94 (H) 0 - 30 MM/HR 08/15 4:59 PM RECONSTRUCTIVE DENTIST [facility] Not Available Not Available 09/27/2024 12:19:51 08/15/20 24 08/15/2024 Eryth rocyt e sedim entat ion rate by Rica neff interpretati on and review of laboratory results Abnorm al Not Available Not Available 12:19:51 08/15/20 24 08/15/2024 CBC W Auto Diffe renti al panel - Blood leukocytes [#/volume] in blood by automated count 9.2 text: 4.0 - 10.7 x10e9/ L WBC 9.2 4.0 - 10.7 x10E9 /L 08/15 4:52 PM RECONSTRUCTIVE DENTIST [facility] Not Available Not Available 09/27/2024 12:19:50 08/15/20 24 08/15/2024 CBC W Auto Diffe renti al panel - Blood erythrocytes [#/volume] in blood by automated count 4.18 text: 3.90 - 5.20 x10e12 /L RBC Count 4.18 3.90 - 5.20 x10E1 2/L 08/15 4:52 PM RECONSTRUCTIVE DENTIST [facility] Not Available Not Available 09/27/2024 12:19:50 08/15/20 24 08/15/2024 CBC W Auto Diffe renti al panel - Blood hemoglobin [mass/volume ] in blood 11.7 g/dL low: 11.9g/ dLhigh : 15.8g/ dL low Hemog lobin 11.7 (L) 11.9 - 15.8 g/dL 08/15 4:52 PM RECONSTRUCTIVE DENTIST [facility] Not Available Not Available 09/27/2024 12:19:50 08/15/20 24 08/15/2024 CBC W Auto Diffe renti al panel - Blood hematocrit [volume fraction] of blood by automated count 35.9 % low: 34.8%h igh: 46.1% Hemat ocrit 35.9 34.8 - 46.1 % 08/15 4:52 PM RECONSTRUCTIVE DENTIST [facility] Not Available Not Available 09/27/2024 12:19:50 08/15/20 24 08/15/2024 CBC W Auto Diffe renti al panel - Blood MCV [entitic volume] by automated count 85.9 fL low: 80fLhi gh: 98fL MCV 85.9 80.0 - 98.0 fL 08/15 4:52 PM RECONSTRUCTIVE DENTIST [facility] Not Available Not Available 09/27/2024 12:19:50 08/15/20 24 08/15/2024 CBC W Auto Diffreema silverman al panel - Blood MCH [entitic mass] by automated count 28 pg low: 26.7pg high: 33.6pg MCH 28.0 26.7 - 33.6 pg 08/15 4:52 PM RECONSTRUCTIVE DENTIST [facility] Not Available Not Available 09/27/2024 12:19:50 08/15/20 24 08/15/2024 CBC W Auto Diffreema taylor panel - Blood MCHC [mass/volume ] by automated count 32.6 g/dL low: 31.7g/ dLhigh : 36.3g/ dL MCHC 32.6 31.7 - 36.3 g/dL 08/15 4:52 PM RECONSTRUCTIVE DENTIST [facility] Not Available Not Available 09/27/2024 12:19:50 08/15/20 24 08/15/2024 CBC W Auto Diffreema taylor panel - Blood erythrocyte distribution width [ratio] by automated count 14.4 % low: 11.3%h igh: 14.8% RDW-C V 14.4 11.3 - 14.8 % 08/15 4:52 PM RECONSTRUCTIVE DENTIST [facility] Not Available Not Available 09/27/2024 12:19:50 08/15/20 24 08/15/2024 CBC W Auto Diffreema taylor panel - Blood platelets [#/volume] in blood by automated count 403 text: 150 - 420 x10e9/ L Plate let Count 403 150 - 420 x10E9 /L 08/15 4:52 PM RECONSTRUCTIVE DENTIST [facility] Not Available Not Available 09/27/2024 12:19:50 08/15/20 24 08/15/2024 CBC W Auto Diffreema taylor panel - Blood platelet mean volume [entitic volume] in blood by automated count 9.2 fL low: 7.8fLh igh: 11.4fL MPV 9.2 7.8 - 11.4 fL 08/15 4:52 PM RECONSTRUCTIVE DENTIST [facility] Not Available Not Available 09/27/2024 12:19:50 08/15/20 24 08/15/2024 CBC W Auto Diffe renti al panel - Blood neutrophils/ 100 leukocytes in blood by automated count 75.3 % low: 41%hig h: 74% high Neutr ophil % 75.3 (H) 41.0 - 74.0 % 08/15 4:52 PM RECONSTRUCTIVE DENTIST [facility] Not Available Not Available 09/27/2024 12:19:50 08/15/20 24 08/15/2024 CBC W Auto Diffe renti al panel - Blood lymphocytes/ 100 leukocytes in blood by automated count 19.3 % low: 17%hig h: 47% Lymph ocyte % 19.3 17.0 - 47.0 % 08/15 4:52 PM RECONSTRUCTIVE DENTIST [facility] Not Available Not Available 09/27/2024 12:19:50 08/15/20 24 08/15/2024 CBC W Auto Diffe renti al panel - Blood monocytes/10 0 leukocytes in blood by automated count 4.4 % low: 3%high : 11% Monoc yte % 4.4 3.0 - 11.0 % 08/15 4:52 PM RECONSTRUCTIVE DENTIST [facility] Not Available Not Available 09/27/2024 12:19:50 08/15/20 24 08/15/2024 CBC W Auto Diffe renti al panel - Blood eosinophils/ 100 leukocytes in blood by automated count 0.5 % low: 0%high : 7% Eosin ophil % 0.5 0.0 - 7.0 % 08/15 4:52 PM RECONSTRUCTIVE DENTIST [facility] Not Available Not Available 09/27/2024 12:19:50 08/15/20 24 08/15/2024 CBC W Auto Diffe renti al panel - Blood basophils/10 0 leukocytes in blood by automated count 0.3 % low: 0%high : 1.6% Basop hil % 0.3 0.0 - 1.6 % 08/15 4:52 PM RECONSTRUCTIVE DENTIST [facility] Not Available Not Available 09/27/2024 12:19:50 08/15/20 24 08/15/2024 CBC W Auto Diffe renti al panel - Blood immature granulocytes /100 leukocytes in blood by automated count 0.2 % low: 0%high : 1% Immat ure Granu locyt es % 0.2 0.0 - 1.0 % 08/15 4:52 PM RECONSTRUCTIVE DENTIST [facility] Not Available Not Available 09/27/2024 12:19:50 08/15/20 24 08/15/2024 CBC W Auto Diffe renti al panel - Blood neutrophils [#/volume] in blood by automated count 6.92 text: 1.60 - 7.50 x10e9/ L Neutr ophil Absol kasaan 6.92 1.60 - 7.50 x10E9 /L 08/15 4:52 PM RECONSTRUCTIVE DENTIST [facility] Not Available Not Available 09/27/2024 12:19:50 08/15/20 24 08/15/2024 CBC W Auto Diffe renti al panel - Blood lymphocytes [#/volume] in blood by automated count 1.77 text: 1.00 - 4.40 x10e9/ L Lymph ocyte Absol kasaan 1.77 1.00 - 4.40 x10E9 /L 08/15 4:52 PM RECONSTRUCTIVE DENTIST [facility] Not Available Not Available 09/27/2024 12:19:50 08/15/20 24 08/15/2024 CBC W Auto Diffe renti al panel - Blood monocytes [#/volume] in blood by automated count 0.4 text: 0.15 - 1.00 x10e9/ L Monoc yte Absol kasaan 0.40 0.15 - 1.00 x10E9 /L 08/15 4:52 PM RECONSTRUCTIVE DENTIST [facility] Not Available Not Available 09/27/2024 12:19:50 08/15/20 24 08/15/2024 CBC W Auto Diffe renti al panel - Blood eosinophils [#/volume] in blood 0.05 text: 0.00 - 0.60 x10e9/ L Eosin ophil Absol kasaan 0.05 0.00 - 0.60 x10E9 /L 08/15 4:52 PM RECONSTRUCTIVE DENTIST [facility] Not Available Not Available 09/27/2024 12:19:50 08/15/20 24 08/15/2024 CBC W Auto Diffe renti al panel - Blood basophils [#/volume] in blood by automated count 0.03 text: 0.00 - 0.13 x10e9/ L Basop hil Absol kasaan 0.03 0.00 - 0.13 x10E9 /L 08/15 4:52 PM RECONSTRUCTIVE DENTIST [facility] Not Available Not Available 09/27/2024 12:19:50 08/15/20 24 08/15/2024 CBC W Auto Diffe renti al panel - Blood interpretati on and review of laboratory results Abnorm al Not Available Not Available 12:19:50 08/15/20 24 08/15/2024 Compr ehens sayra metab olic 2000 panel - Serum or Plasm a urea nitrogen [mass/volume ] in serum or plasma 7 mg/dL low: 7mg/dL high: 26mg/d L BUN 7 7 - 26 mg/dL 08/15 5:05 PM [facility] Not Available Not Available 09/27/2024 12:19:50 08/15/20 24 08/15/2024 Compr ehens sayra metab olic 2000 panel - Serum or Plasm a creatinine [mass/volume ] in serum or plasma 0.77 mg/dL low: 0.56mg /dLhig h: 0.96mg /dL Creat inine 0.77 0.56 - 0.96 mg/dL 08/15 5:05 PM [facility] Not Available Not Available 09/27/2024 12:19:50 08/15/20 24 08/15/2024 Compr ehens sayra metab olic 2000 panel - Serum or Plasm a sodium [moles/volum e] in serum or plasma 139 mmol/ L low: 136mmo l/Lhig h: 145mmo l/L Sodiu m 139 136 - 145 mmol/ L 08/15 5:05 PM [facility] Not Available Not Available 09/27/2024 12:19:50 08/15/20 24 08/15/2024 Compr ehens sayra metab olic 1999 panel - Serum or Plasm a potassium [moles/volum e] in serum or plasma 3.5 mmol/ L low: 3.5mmo l/Lhig h: 4.5mmo l/L Potas sium 3.5 3.5 - 4.5 mmol/ L 08/15 5:05 PM [facility] Not Available Not Available 09/27/2024 12:19:50 08/15/20 24 08/15/2024 Compr ehens sayra metab olic 2000 panel - Serum or Plasm a chloride [moles/volum e] in serum or plasma 102 mmol/ L low: 98mmol /Lhigh : 107mmo l/L Chlor julio 102 98 - 107 mmol/ L 08/15 5:05 PM [facility] Not Available Not Available 09/27/2024 12:19:50 08/15/20 24 08/15/2024 Compr ehens sayra metab olic 1999 panel - Serum or Plasm a carbon dioxide, total [moles/volum e] in serum or plasma 26 mmol/ L low: 22mmol /Lhigh : 29mmol /L CO2 26 22 - 29 mmol/ L 08/15 5:05 PM [facility] Not Available Not Available 09/27/2024 12:19:50 08/15/20 24 08/15/2024 Compr ehens sayra metab olic 1999 panel - Serum or Plasm a glucose [mass/volume ] in serum or plasma 99 mg/dL low: 70mg/d Lhigh: 99mg/d L Gluco se 99 70 - 99 mg/dL 08/15 5:05 PM [facility] Not Available Not Available 09/27/2024 12:19:50 08/15/20 24 08/15/2024 Compr ehens sayra metab olic 2000 panel - Serum or Plasm a calcium [moles/volum e] in serum or plasma 10 mg/dL low: 8.4mg/ dLhigh : 10.2mg /dL Calci um 10.0 8.4 - 10.2 mg/dL 08/15 5:05 PM RECONSTRUCTIVE DENTIST [facility] Not Available Not Available 09/27/2024 12:19:50 08/15/20 24 08/15/2024 [facility] sayra metab olic 2000 panel - Serum or Plasm a protein [mass/volume ] in serum or plasma 8.5 g/dL low: 6g/dLh igh: 8.3g/d L high Prote in Total 8.5 (H) 6.0 - 8.3 g/dL 08/15 5:05 PM RECONSTRUCTIVE DENTIST [facility] Not Available Not Available 09/27/2024 12:19:50 08/15/2008/15/2024 [facility] sayra metab ic 2000 panel - Serum or Plasm a albumin [mass/volume ] in serum or plasma by bromocresol green (bcg) dye binding method 4.1 g/dL low: 3.4g/d Lhigh: 5g/dL Album in 4.1 3.4 - 5.0 g/dL 08/15 5:05 PM [facility] Not Available Not Available 09/27/2024 12:19:50 08/15/2008/15/2024 [facility] - Serum or Plasm a bilirubin.to isadora [mass/volume ] in serum or plasma 0.3 mg/dL low: 0.2mg/ dLhigh : 1.2mg/ dL Bilir ubin Total 0.3 0.2 - 1.2 mg/dL 08/15 5:05 PM [facility] Not Available Not Available 09/27/2024 12:19:50 08/15/20 24 08/15/2024 Compr ens sayra metab olic 2000 panel - Serum or Plasm a alkaline phosphatase [enzymatic activity/vol ume] in serum or plasma 91 U/L low: 40U/Lh igh: 150U/L Alkal ine Phosp hatas e 91 40 - 150 U/L 08/15 5:05 PM [facility] Not Available Not Available 09/27/2024 12:19:50 08/15/20 24 08/15/2024 Compr ehens sayra metab olic 1999 panel - Serum or Plasm a alanine aminotransfe rase [enzymatic activity/vol ume] in serum or plasma by no addition of P-5'-P 6 U/L low: 5U/Lhi gh: 55U/L ALT 6 5 - 55 U/L 08/15 5:05 PM RECONSTRUCTIVE DENTIST [facility] Not Available Not Available 09/27/2024 12:19:50 08/15/20 24 08/15/2024 Compr ehens sayra metab olic 1999 panel - Serum or Plasm a aspartate aminotransfe rase [enzymatic activity/vol ume] in serum or plasma 12 U/L low: 5U/Lhi gh: 34U/L AST 12 5 - 34 U/L 08/15 5:05 PM RECONSTRUCTIVE DENTIST [facility] Not Available Not Available 09/27/2024 12:19:50 08/15/20 24 08/15/2024 Compr ehens sayra metab olic 1999 panel - Serum or Plasm a anion gap 11 low: 6high: 16 Anion Gap 11 6 - 16 08/15 5:05 PM RECONSTRUCTIVE DENTIST [facility] Not Available Not Available 09/27/2024 12:19:50 08/15/20 24 08/15/2024 Compr ehens sayra metab olic 2000 panel - Serum or Plasm a urea nitrogen/cre atinine [mass ratio] in serum or plasma 9 low: 7high: 23 BUN/C reati nine Ratio 9 7 - 23 08/15 5:05 PM RECONSTRUCTIVE DENTIST [facility] Not Available Not Available 09/27/2024 12:19:50 08/15/20 24 08/15/2024 Compr ehens sayra metab olic 2000 panel - Serum or Plasm a osmolality calculated 286 text: 275 - 295 mOsm/k g Osmol jossy Bubba lated 286 275 - 295 mOsm/ kg 08/15 5:05 PM RECONSTRUCTIVE DENTIST [facility] Not Available Not Available 09/27/2024 12:19:50 08/15/20 24 08/15/2024 Compr ehens sayra metab olic 2000 panel - Serum or Plasm a albumin/glob ulin ratio 0.9 low: 1.1hig h: 2.3 low Album in/Gl obuli n Ratio 0.9 (L) 1.1 - 2.3 08/15 5:05 PM RECONSTRUCTIVE DENTIST [facility] Not Available Not Available 09/27/2024 12:19:50 08/15/20 24 08/15/2024 Compr ehens sayra metab olic 2000 panel - Serum or Plasm a glomerular filtration rate/1.73 sq M.predicted [volume rate/area] in serum, plasma or blood by creatinine-b ased formula (CKD-epi 2020) 87 text: >=90 mL/min /1.73 m2 low eGFR by CKD-E PI 87 (L) >=90 mL/mi n/1.7 3 m2 08/15 5:05 PM [facility] Not Available Not Available 09/27/2024 12:19:50 08/15/2008/15/2024 Compr ehens sayra metab olic 2000 panel - Serum or Plasm a interpretati on and review of laboratory results Abnorm al Not Available Not Available 12:19:50 09/22/19 25 09/23/2024 TSH TSH 0.518 uIU/m L 0.450- 4.500 Not Available [facility] ([facility]) [address], [place], [address], 09/23/2024 09:39:27 10/06/19 25 10/06/2024 Iron and Iron erwin ng capac ity panel - Serum or Plasm a iron [mass/volume ] in serum or plasma 36 ug/dL low: 50ug/d Lhigh: 212ug/ dL low IRON 36 (L) 50 - 212 ug/dL KRISS R NYLAE R SPECI ALIST S OF [facility] Not Available Not Available 10/13/2024 16:39:58 10/06/19 25 10/06/2024 Iron and Iron erwin ng capac ity panel - Serum or Plasm a iron binding capacity.uns aturated [mass/volume ] in serum or plasma 307 ug/dL low: 155ug/ dLhigh : 355ug/ dL UIBC 307 155 - 355 ug/dL CANCE R CENTE R SPECI ALIST S OF [facility] Not Available Not Available 10/13/2024 16:39:58 10/06/19 25 10/06/2024 Iron and Iron erwin ng capac ity panel - Serum or Plasm a iron binding capacity [mass/volume ] in serum or plasma 343 ug/dL low: 261ug/ dLhigh : 478ug/ dL TIBC 343 261 - 478 ug/dl CANCE R CENTE R SPECI ALIST S OF [facility] Not Available Not Available 10/13/2024 16:39:58 10/06/19 25 10/06/2024 Iron and Iron erwin ng capac ity panel - Serum or Plasm a iron saturation [mass fraction] in serum or plasma 10 % low: 20%hig h: 50% low % Satur ation 10 (L) 20 - 50 % CANCE R CENTE R SPECI ALIST S OF [facility] Not Available Not Available 10/13/2024 16:39:58 10/06/19 25 10/06/2024 Iron and Iron erwin ng capac ity panel - Serum or Plasm a Unknown Analyte Releas e to patien t->Imm ediate Not Available Not Available 16:39:58 10/06/19 25 10/06/2024 Iron and Iron erwin ng capac ity panel - Serum or Plasm a interpretati on and review of laboratory results [facility] Not Available Not Available 16:39:58 10/06/19 25 10/06/2024 Cobal mckay (Lidia min B12) [Mass /volu me] in Serum or Plasm a cobalamin (vitamin B12) [mass/volume ] in serum or plasma 404 pg/mL low: 180pg/ mLhigh : 914pg/ mL Vitam in B12 404 180 - 914 pg/mL CANCE R CENTE R SPECI ALIST S OF [facility] Not Available Not Available 10/13/2024 16:39:58 10/06/19 25 10/06/2024 Cobal mckay (Lidia min B12) [Mass /volu me] in Serum or Plasm a Unknown Analyte Releas e to patien t->Imm ediate Not Available Not Available 16:39:58 10/06/19 25 10/06/2024 Folat e [Mass /volu me] in Serum or Plasm a folate [mass/volume ] in serum or plasma 17.6 NG/mL low: 5.9NG/ mL Folat e 17.60 >=5.9 0 ng/mL CANCE R CENTE R SPECI ALIST S OF [facility] Not Available Not Available 10/13/2024 16:39:58 10/06/19 25 10/06/2024 Folat e [Mass /volu me] in Serum or Plasm a Unknown Analyte Releas e to patien t->Imm ediate IS THE PATIEN T REQUIR ED TO BE FASTIN G FOR 12 HOURS? ->No Not Available Not Available 16:39:58 10/06/19 25 10/06/2024 Raf tin [Mass /volu me] in Serum or Plasm a ferritin [mass/volume ] in serum or plasma 64 NG/mL low: 11NG/m Lhigh: 307NG/ mL Raf tin 64 11 - 307 ng/mL CANCE R CENTE R SPECI ALIST S OF [facility] Not Available Not Available 10/13/2024 16:39:58 10/06/19 25 10/06/2024 Raf tin [Mass /volu me] in Serum or Plasm a Unknown Analyte Releas e to patien t->Imm ediate Not Available Not Available 16:39:58 10/06/19 25 10/06/2024 Compr ehens sayra metab olic 2000 panel - Serum or Plasm a glucose [mass/volume ] i [id number]|2024-12-28 07:30:00|2024-12-28 07:30:00|XMS_ITS|CARON BOYLE|External Medical Summaries|[id number]|" Encounter Summary Created on: December 28, 2024 Betsy Mena : 1960 Sex: Female Author Organization [facility] Facility Care Team Providers Care Entry Driver Operator Name Role Phone Terry Solomon MD Primary Care Provider [phone] Terry Solomon MD Primary Care Provider [phone] Barbie Brown DPT Unavailable Samuel Ashraf MD Primary Care Provider + Maya Balderrama OT Unavailable [phone] Samuel Ashraf MD Primary Care Provider + Rica Cramer MD Primary Care Provider Kye Gonzales MD Primary Care Provider [phone] Encounter Details Date Type Department Care Team (Latest Contact Info) Description 09/08/2017 Orders Only [facility] CLINCONV ProviderWilliam MD [address] [place] [address] Social History Tobacco Use Types Packs/Day Years Used Date Smoking Tobacco: Never Assessed Comments Unknown Sex and Gender Information Value Date Recorded Sex Assigned at Not on file Legal Sex Female 2:56 AM RECONSTRUCTIVE DENTIST Gender Identity Female 05/11/2018 8:11 AM CDT Sexual Orientation Not on file documented as of this encounter Plan of Treatment Not on file documented as of this encounter Procedures Procedure Name Priority Date/Time Associated Diagnosis Comments SCAN - LABS 09/16/2017 12:00 AM RECONSTRUCTIVE DENTIST CARDIOLOGY REPORT 09/16/2017 12: 00 AM RECONSTRUCTIVE DENTIST CARDIOLOGY REPORT 09/16/2017 12: 00 AM RECONSTRUCTIVE DENTIST documented in this encounter Results * SCAN - LABS (09/16/2017 12:00 AM RECONSTRUCTIVE DENTIST) Narrative 09/16/2017 12:00 AM RECONSTRUCTIVE DENTIST Ordered by an unspecified provider. Historical Provider Final Res ult * CARDIOLOGY REPORT (09/16/2017 12:00 AM RECONSTRUCTIVE DENTIST) Anatomical Region Laterality Modality Other Narrative 09/16/2017 12:00 AM RECONSTRUCTIVE DENTIST Ordered by an unspecified provider. Historical Provider CV CARDIAC SERVICES PROCE DURES Final Result * CARDIOLOGY REPORT (09/16/2017 12:00 AM RECONSTRUCTIVE DENTIST) Anatomical Region Laterality Modality Other Narrative 09/16/2017 12:00 AM RECONSTRUCTIVE DENTIST Ordered by an unspecified provider. Historical Provider CV CARDIAC SERVICES PROCE DURES Final Result documented in this encounter Visit Diagnoses Not on filedocumented in this encounter Care Teams Entry Driver Operator Relationship Specialty Start Date End Date Terry Solomon MD [address] [place] [id number] PCP - General 12/01/16 11/02/17 Terry Solomon MD [address] [facility] [address] [place] [address] PCP - General 11/03/17 10/18/19 [place] [address] [place] [address] PCP - General Family Medicine 10/20/19 02/18/22 [place] [address] [place] [address] PCP - General 10/19/19 10/19/19 Rica Cramer MD [address] [place] [address] [place] [address] PCP - General Family Practice 02/19/22 07/27/23 Kye Gonzales MD [address] [facility] [place] [address] PCP - General Family Medicine 07/28/23 Barbie Brown DPT [address] [facility] [address] [place] [address] Physical Therapist Physical Therapy 08/23/18 02/28/19 Maya Balderrama OT [address] [address] Occupational Therapist Occupational Therapy 11/08/19 documented as of this encounter "
--- OUTSIDE RECORDS SUMMARY | 2024-12-28 07:30 | XMS_ITS | Clinical Summary ---
Author Organization [facility] [email or web address] Address [address] [facility] [place] [address] Care Team Providers Care Investor Name Role Phone Kye Gonzales MD Primary Care Provider [phone] Source Comments [facility] [email or web address],non-owned Affiliates and Associated Physician Practices is amultiple site organization consisting of ambulatory clinics and hospital sitesin [place], [place], [place] and [place]. This disclosure is being madepursuant to the Care Everywhere program and may not contain all information available regarding this patient. Last updated 18.[facility] [email or web address] Allergies Active Allergy Reactions Criticality Noted Date Comments Amlodipine Besy-Benazepril Hcl Rash Medium 03/09/2022 Contrast-Iodinated Agents For Ct/Other Anaphylaxis,Rash,Othe r High 03/09/2022 Pt also coded 3 times with iodine contrast Iodine Anaphylaxis,Rash High 01/30/2019 Pt states she coded on this Lisinopril Rash Medium 06/01/2018 Morphine Itching Low 01/11/2018 Zoster Vac Recomb Adjuvanted Rash Medium 03/31/2023 Medications * Be aware that medications may not be up to date on this document. Alwaysverify current medications with the patient. acetaminophen CR (TYLENOL ARTHRITIS PAIN) 650 MG tablet Take 1 (one) tablet by mouth once daily Active albuterol HFA (PROVENTIL; VENTOLIN; PROAIR) 108 (90 Base) MCG/ACT inhaler INHALE TWO puffs BY MOUTH EVERY SIX HOURS NEEDED FOR wheezing Active amLODIPine (NORVASC) 10 MG tablet Take 1 (one) tablet by mouth once daily 022 Active Calcium Carbonate-Vit D-Min (CALTRATE 600+D PLUS MINERALS) 600-800 MG-UNIT TABS Take 1 Each by mouth 2 times daily Active DULoxetine (CYMBALTA) 60 MG capsule Take 1 (one) capsule by mouth once daily Active Elastic Bandages & Supports (NEOPRENE ELBOW SUPPORT) MISC Knee high compression stockings. 20-30 mm/Hg. Apply stockings in the morning and remove at bedtime. DX: edema Active fluticasone propionate (FLONASE) 50 MCG/ACT nasal spray [place] 1 (one) spray into each nostril once daily Active furosemide (LASIX) 80 MG tablet Take 1 (one) tablet by mouth once daily Active losartan (COZAAR) 50 MG tablet Take 1 (one) tablet by mouth once daily Active rivaroxaban (XARELTO) 20 MG tablet Take 1 (one) tablet by mouth once daily Active triamcinolone acetonide (KENALOG) 0.1 % ointment APPLY EXTERNALLY TWICE DAILY FOR SKIN RASH OVER MAJORITY OF BODY. Active BLACK ELDERBERRY PO Take by mouth once daily Active Fish Oil-Cholecalciferol (OMEGA-3 FISH OIL/VITAMIN D3 PO) Take by mouth once daily Active cyancobalmin (B-12) 500 MCG tablet Take by mouth once daily Active diclofenac sodium (Voltaren) 1 % gel Apply 4 (four) g to affected area 4 times daily 100 g 5 Active cloNIDine (Catapres) 0.2 MG tablet Take 1 (one) tablet by mouth every 12 hours Active Zinc 10 MG Active levothyroxine (Synthroid) 88 MCG tablet Take 1 (one) tablet by mouth once daily 90 tablet 11 Active spironolactone (Aldactone) 25 MG tablet Take 1 (one) tablet by mouth once daily Active Vitamin D3 (D2000 Ultra Strength) 50 MCG (2000 UT) capsule Take 1 (one) capsule by mouth once daily Active pantoprazole EC (Protonix) 40 MG tablet Take 1 (one) tablet by mouth once daily Active latanoprost (Xalatan) 0.005 % ophthalmic solution Instill 1 (one) drop into both eyes at bedtime 7.5 mL 4 024 Active potassium chloride ER (Klor-Con M) 20 MEQ tablet Active cycloSPORINE (Restasis) 0.05 % ophthalmic suspensionIndications:S jogren's syndrome with keratoconjunctivitis sicca (HCC) Instill 1 (one) drop into both eyes 2 times daily 180 Each 4 024 Active hydroxychloroquine (Plaquenil) 200 MG tabletIndications:Serop ositive rheumatoid arthritis (HCC) Take 1 (one) tablet by mouth 2 times daily 60 tablet 5 Active methotrexate 2.5 MG tablet Take 8 (eight) tablets by mouth every 7 days 96 tablet 1 024 Active folic acid (Folvite) 1 MG tablet Take 1 (one) tablet by mouth once daily 90 tablet 3 024 Active predniSONE (Deltasone) 1 MG tabletIndications:Serop ositive rheumatoid arthritis (HCC) Take 4 (four) tablets by mouth once daily 112 tablet 024 Active Active Problems Problem Noted Date Diagnosed Date Rheumatoid arthritis involvi ng multiple sites with positive rheumatoid factor 04/01/2023 COVID-19 02/02/2022 History of venous thrombosis 10/12/2019 Exophthalmos of both eyes 02/15/2019 Nuclear age-related cataract, both eyes 02/16/20 19 Atrophic vaginitis 02/14/2019 Nocturnal enuresis 02/14/2019 Urinary incontinence 02/14/2019 Age-related osteoporosis wit hout current pathological fracture 10/05/2018 Overview (06/08/2022): Last Assessment & Plan: A: patient reports she had a bone scan that showed worsening from osteopenia to osteoporosis. We currently do not have access to these records. Has had a fall since her last visit here in April. P: -Continue vitamin D supplementation -Continue PT/OT -Would consider adding bisphosphonate therapy Osteoporosis 10/05/2018 Overview (06/08/2022): Last Assessment & Plan: A: patient reports she had a bone scan that showed worsening from osteopenia to osteoporosis. We currently do not have access to these records. Has had a fall since her last visit here in April. P: -Continue vitamin D supplementation -Continue PT/OT -Would consider adding bisphosphonate therapy Rupture of quadriceps tendon 01/11/2018 Delusions of parasitosis 12/08/2016 Atopic dermatitis 08/04/2016 Benign essential hypertension 08/04/2016 Neuropathy 08/04/2016 Leukocytosis 04/05/2016 Vitamin D deficiency 04/05/2016 Deep venous thrombosis 12/18/2015 Depressive disorder 12/18/2015 Obesity 12/18/2015 Non-toxic nodular goiter 12/18/2015 Pain in the shoulder 12/04/2015 Intertrigo 11/16/2014 Prurigo nodularis 05/22/2013 Overview (06/08/2022): Last Assessment & Plan: A: diagnosis of [...] with Dermatology Hypothyroidism 12/28/2012 Rheumatoid arthritis 11/27/2010 Overview (04/06/2022): Last Assessment & Plan: A: currently on [...] her best therapeutic option is knee replacement. Resolved Problems Problem Noted Date Diagnosed Date Resolved Date High risk medication use 10/05/201809/2022 Overview (06/08/2022): Last Assessment & Plan: A/P: CMP/CBC for monitoring Knee pain 08/05/2016 12/15/2022 Itching 05/22/2013 12/15/2022 Disorder of tendon of shoulder region 05/25/2012 12/15/2022 Encounters Date Type Department Care Team Description 12/01/2024 Orders Only [facility] - Rheumatology [address] [place] [address], [place] [address] Megan Quintana MD Seropositive rheumatoid arthritis (HCC); Encounter for long-term (current) use of high-risk medication; Encounter for therapeutic drug monitoring from Last 3 Months Immunizations Immunization Administration Dates Next Due INFLUENZA VACCINE 05/02/2018,08/26/2012,07/09/20 08 PNEUMOCOCCAL PPSV23 05/19/2018,05/18/2018 Zoster Hzv Vacc Recombinant Inj Im 12/13/2018 Family History Medical History Relation Name Comments Glaucoma Maternal Grandmother Glaucoma Mother Blindness Neg Hx Relation Name Status Comments Maternal Grandmother Mother Social History Tobacco Use Types Packs/Day Years Used Date Smoking Tobacco: Never Smokeless Tobacco: Never Tobacco Cessation:Counseling Given: Not Answered Alcohol Use Standard Drinks/Week Comments Yes 0 (1 standard drink = 0.6 oz pur e alcohol) 1 glass of wine a month PHQ-2 Answer Date Recorded Patient Health Questionnaire-2 Score 0 08/15/2024 Comments No Sex and Gender Information Value Date Recorded Sex Assigned at Not on file Legal Sex Female 6:56 AM VALUER Gender Identity Not on file Sexual Orientation Not on file Last Filed Vital Signs Vital Sign Reading Time Taken Comments Blood Pressure 132/90 08/15/2024 3:32 PM VALUER Pulse 90 08/15/2024 3:32 PM VALUER Temperature 36.4 C (97.6 F) 08/15/2024 3:32 PM VALUER Respiratory Rate 20 06/03/2023 2:37 PM CDT Oxygen Saturation 97% 08/15/2024 3:32 PM VALUER Inhaled Oxygen Concentration - - Weight 73.5 kg (162 lb) 08/15/2024 3:32 PM VALUER Height 157.5 cm (5' 2 ) 08/15/2024 3:32 PM VALUER Body Mass Index 29.63 08/15/2024 3:32 PM VALUER Plan of Treatment Upcoming Encounters Date Type Department Care Team (Late st Contact Info) Description 03/28/2025 9:00 AM CDT Office Visit [facility] - Ophthalmology [address] [place] [address] Willie Birch MD [address] [place] [address] [place] [address] Health Maintenance Due Date Last Done Comments COLOGUARD (AGES 45-75) - COLON CA SCREENING 1960 COLON MONITORING 1960 COLONOSCOPY - COLON CA SCREENING 1960 CT COLONOGRAPHY - COLON CA SCREENING 1960 Colorectal Cancer Screening 1960 FIT - COLON CA SCREENING 1960 FLEX SIG - COLON CA SCREENING 1960 PAP SMEAR 1960 HIV SCREENING 01/28/1976 DTAP/TDAP/TD VACCINES (1 - Tdap) 01/28/1980 ZOSTER VACCINE (2 of 2) 02/07/2019 12/13/2018 PNEUMOCOCCAL VACCINE 50+ (2 of 2 - PCV) 05/19/2019 05/19/2018, 05/18/2018 MAMMOGRAM 08/17/2020 08/17/2018, 09/2018, 07/02/2017 COVID-19 VACCINE (3 - season) 2024 11/14/2020, 10/25/2020 DEPRESSION SCREENING 08/16/2024 08/15/2024 MEDICARE AWV CALENDAR YEAR 2024 INFLUENZA VACCINE (Season Ended) 2025 05/02/2018, 08/26/2012, 07/09/2008 SCREENING FOR DIABETES 08/15/2027 , 12/17/2023, 06/03/2023, Additional history exists LIPID TESTING 04/12/2028 04/12/2023, 07/0 02/2022, 06/23/2021 Respiratory Syncytial Virus (RSV) Vaccine Pt: or over 60 yrs (1 - 1-dose 75+ series) 01/28/2036 HEPATITIS C SCREENING Completed 06/08/2022 HEPATITIS B VACCINE Aged Out No longe r eligible based on patient's age to complete this topic HIB VACCINE Aged Out No longer eligi ble based on patient's age to complete this topic HPV VACCINE Aged Out No longer eligi ble based on patient's age to complete this topic MENINGOCOCCAL (Group B) VACCINE SHARED DECISION-MAKING Aged Out No longer eligible based on patient's age to complete this topic MENINGOCOCCAL GROUPS A/C/Y/W VACCINE Aged Out No longer eligible based on patient's age to complete this topic Procedures Procedure Name Priority Date/Time Associated Diagnosis Comments COMPREHENSIVE METABOLIC PANEL Routine 08/15/2024 4:30 PM VALUER Seropositive rheumatoid arthritis Encounter for long-term (current) use of high-risk medication Encounter for therapeutic drug monitoring HEPATITIS C AB W/RFLX TO HCV RNA QN PCR 06/08/2022 10:16 AM CDT from Last 3 Months or Most Recently Relevant to Health Maintenance Results * (ABNORMAL) COMPREHENSIVE METABOLIC PANEL (08/15/2024 4:30 PM VALUER) BUN 7 7 - 26 mg/dL 08/15/2024 5:05 PM [facility] Creatinine 0.77 0.56 - 0.96 mg/dL 08/15/2024 5:05 PM [facility] Sodium 139 136 - 145 mmol/L 08/15/2024 5:05 PM [facility] Potassium 3.5 3.5 - 4.5 mmol/L 08/15/2024 5:05 PM [facility] Chloride 102 98 - 107 mmol/L 08/15/2024 5:05 PM [facility] CO2 26 22 - 29 mmol/L 08/15/2024 5:05 PM [facility] Glucose 99 70 - 99 mg/dL 08/15/2024 5:05 PM [facility] Calcium 10.0 8.4 - 10.2 mg/dL 08/15/2024 5:05 PM [facility] Protein Total 8.5(H) 6.0 - 8.3 g/dL 08/15/2024 5:05 PM [facility] Albumin 4.1 3.4 - 5.0 g/dL 08/15/2024 5:05 PM [facility] Bilirubin Total 0.3 0.2 - 1.2 mg/dL 08/15/2024 5:05 PM [facility] Alkaline Phosphatase 91 40 - 150 U/L 08/15/2024 5:05 PM [facility] ALT 6 5 - 55 U/L 08/15/2024 5:05 PM [facility] AST 12 5 - 34 U/L 08/15/2024 5:05 PM [facility] Anion Gap 11 6 - 16 08/15/2024 5:05 PM [facility] BUN/Creatinine Ratio 9 7 - 23 08/15/2024 5:05 PM [facility] Osmolality Calculated 286 275 - 295 mOsm/kg 08/15/2024 5:05 PM [facility] Albumin/Globulin Ratio 0.9(L) 1.1 - 2.3 08/15/2024 5:05 PM [facility] eGFR by CKD-EPI 87(L) >=90 mL/min/1.7 3 m2 08/15/2024 5:05 PM [facility] Blood BLOOD SPECIMEN / Unknown Lab Venipuncture / Unknown 08/15/2024 4:30 PM VALUER 08/15/2024 4:39 PM [facility] us Megan Quintana MD LAB - CHEMISTRY ORDERA BLES Final Result [facility] [address] [place] [address], [facility] [phone] * HEPATITIS C AB W/RFLX TO HCV RNA QN PCR (06/08/2022 10:16 AM CDT) Hepatitis C Antibody NON-REACTI VE NON-REACT [facility] Signal to Cut-Off 0.02 <1.00 [facility] Comment: HCV antibody was non-reactive. There is no laboratory evidence of HCV infection. In most cases, no further action is required. However, if recent HCV exposure is suspected, a test for HCV RNA (test code 57186) is suggested. For additional information please refer to http://education.TLM Com/faq/UGP84l2 (This link is being provided for informational/ educational purposes only.) Test Performed at: [facility] [address] [place] [address] CHANCE CONNOR DO,MPH 06/08/2022 10:1 6 AM CDT 06/08/2022 10:16 AM CDT us Megan Quintana MD LAB - CHEMISTRY IMANI HOUSER Final Result [facility] [address] [place] [address] from Last 3 Months or Most Recently Relevant to Health Maintenance Insurance [address] [place] [address] [facility] MANAGED MEDICARE ADV MEDICAID - [place] [facility] [address] [place], [place] [id number] [facility] MANAGED MEDICARE FORMERLY [facility] MEDICAID - OUT OF [facility] [address] [place] [phone] [facility] MANAGED MEDICARE ADV MEDICAID - [place] Care Teams Investor Relationship Specialty Start Date End Date Kye Gonzales MD [address] [place] [address] [address] [place] [address] PCP - General Family Medicine 11/24/23
--- OUTSIDE RECORDS SUMMARY | 2024-12-28 07:30 | XMS_ITS | Encounter Summary ---
Author Organization [facility] Address [address] [place] [address] Phone Care Team Providers Care Title Checker Name Role Phone Samuel Ashraf MD Primary Care Provider + Rica Cramer MD Primary Care Provider Kye Gonzales MD Primary Care Provider [phone] Encounter Details Date Type Department Care Team (Late st Contact Info) Description 11/29/2019 Orders Only [facility] Scanning, Provider Social History Tobacco Use Types Packs/Day Years Used Date Smoking Tobacco: Never Smokeless Tobacco: Never Alcohol Use Standard Drinks/Week Comments Yes 0 (1 standard drink = 0.6 oz pur e alcohol) Comments Unknown Sex and Gender Information Value Date Recorded Sex Assigned at Not on file Legal Sex Female 2:56 AM DIRECTOR GRAPHICS Gender Identity Female 05/11/2018 8:11 AM CDT Sexual Orientation Not on file COVID-19 Exposure Response Date Recorded In the last month, have you been in contact with someone who was confirmed or suspected to have Coronavirus / COVID-19? Unable to assess 11/15/2019 8:22 AM CDT documented as of this encounter Plan of Treatment Not on file documented as of this encounter Procedures Procedure Name Priority Date/Time Associated Diagnosis Comments SCAN - LABS 11/29/2019 documented in this encounter Results * SCAN - LABS (11/29/2019) us Provider Scanning Final Result documented in this encounter Visit Diagnoses Not on filedocumented in this encounter Care Teams Title Checker Relationship Specialty Start Date End Date [place] [address] PCP - General Family Medicine 10/20/19 02/18/22 Rica Cramer MD [address] [facility] [address] PCP - General Family Practice 02/19/22 07/27/23 Kye Gonzales MD [address] [place] [address] PCP - General Family Medicine 07/28/23 documented as of this encounter
--- OUTSIDE RECORDS SUMMARY | 2024-12-28 07:30 | XMS_ITS | Clinical Summary ---
Author Organization [facility] Address [address] [place] [address] Care Team Providers Care Medical Education Specialist Name Role Phone Kye Gonzales MD Primary Care Provider [phone] Allergies Active Allergy Reactions Criticality Noted Date [...] 1 tablet (88 mcg total) by mouth strip cutter before breakfast Active folic acid (FOLVITE) 1 [...] 10/05/2018 Assessment & Plan (10/05/2018 9:38 AM THEATRICAL VARIETY AGENT): A: patient reports she had a bone [...] [facility] Recommend 20 30 mmHg compression stockings. -we will obtain venous duplex to left lower extremity. We will call patient with results. 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 Ledesma. Reports the rash has become more extensive, did not respond to last treatment trialled P: -Follow up again with Dermatology Hypothyroidism 12/28/2012 Rheumatoid arthritis 11/27/2010 Assessment & Plan (01/21/2024 11:17 AM CDT): Impression: History of rheumatoid arthritis currently being managed by Rheumatology. Plan: Continue recommendations as per broom stitcher. Assessment & Plan (10/27/2023 11:20 AM CDT): Impression: Patient has a history of rheumatoid arthritis. Currently being managed by Rheumatology. 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 Resolved Problems Problem Noted Date Diagnosed Date Resolved Date Osteopenia of multiple sites 01/03/2020 04/05/2020 Exophthalmos of both eyes 02/15/2019 High risk medication use 10/05/2018 Assessment & Plan (10/05/2018 9:35 AM THEATRICAL VARIETY AGENT): A/P: CMP/CBC for monitoring Knee pain 08/05/2016 04/05/2020 Swelling of knee joint 07/30/201604/05 Pruritus 04/14/2016 04/05/2020 Leukocytosis 04/05/2016 04/05/2020 Rheumatoid arthritis 12/18/2015 020 Assessment & Plan (10/05/2018 9:33 AM THEATRICAL VARIETY AGENT): A: currently on MTX 10 mg weekly, [...] Encounter for preventive health examination 12/21/2008 04/05/2020 Encounters Date Type Department Care Team Description 12/27/2024 - 12/27/2024 12:15 PM CDT Emergency [facility] Emergency Department [address] [place] [id number] Discharge Disposition: ED Dismiss - Never Arrived from Last 3 Months Immunizations Immunization Administration Dates Next Due Influenza, Quadrivalent, Spl it, Preservative Free, Intramuscular 05/02/2018 Influenza, Trivalent, IM (MDV) 05/02/2018 Influenza, Trivalent, Preservative Free, Intramu scular 07/09/2008 Pneumococcal Polysaccharide PPV23 05/19/2018,10/2017 ZOSTER Recombinant 12/13/2018,12/13/2018 Surgical History Surgery Date Site/Laterality Comments SECTION THYROIDECTOMY 08/16/2015 - 08/15/2016 ECTOPIC 1979, 1988 Medical History Medical History Date Comments Deep vein thrombosis (HCC) 3 Hypertension Incontinence Joint pain Osteoporosis Thyroid disease Tinnitus Anxiety Autoimmune disease Cataract Family History Medical History Relation Name Comments Glaucoma Father Glaucoma - (Add ed by TW Conv) Rheum arthritis Father Family histo ry of rheumatoid arthritis - (Added by TW Conv) Glaucoma Maternal Grandmother Glaucom a - (Added by TW Conv) Glaucoma Mother Glaucoma - (Add ed by TW Conv) Osteoarthritis Mother Family histor y of osteoarthritis - (Added by TW Conv) Osteoporosis Mother Family history of osteoporosis - (Added by TW Conv) Rheum arthritis Mother Family histo ry of rheumatoid arthritis - (Added by TW Conv) Glaucoma Mother's Sister Glaucoma - ( Added by TW Conv) Arthritis Sister Family history of arthritis - (Added by TW Conv) Relation Name Status Comments Father Maternal Grandmother Mother Mother's Sister Sister Social History Tobacco Use Types Packs/Day Years Used Date Smoking Tobacco: Never Smokeless Tobacco: Never Tobacco Cessation:Counseling Given: Not Answered Alcohol Use Standard Drinks/Week Comments Not Currently 0 (1 standard drink = 0.6 oz pur e alcohol) Comments Unknown Sex and Gender Information Value Date Recorded Sex Assigned at Not on file Legal Sex Female 2:56 AM THEATRICAL VARIETY AGENT Gender Identity Female 05/11/2018 8:11 AM CDT Sexual Orientation Not on file Obstetrics History Last Filed Vital Signs Vital Sign Reading Time Taken Comments Blood Pressure 121/87 01/20/2024 10:08 AM CDT Pulse 69 01/20/2024 10:08 AM CDT Temperature 36.5 C (97.7 F) 09/17/2020 10:35 AM THEATRICAL VARIETY AGENT Respiratory Rate 18 08/20/2023 9:56 AM THEATRICAL VARIETY AGENT Oxygen Saturation 97% 04/12/2023 2:24 PM CDT Inhaled Oxygen Concentration - - Weight 69.9 kg (154 lb) 01/20/2024 10:08 AM CDT Height 160 cm (5' 3 ) 01/20/2024 10:08 AM CDT Body Mass Index 27.28 01/20/2024 10:08 AM CDT Plan of Treatment Health Maintenance Due Date Last Done Comments Cervical Cancer Screening 1961 Colon Cancer Screening-Colonoscopy 1961 Depression Screening 1961 Hepatitis B Screening 1979 Regular Well Visit/Exam 18-64 1979 Pneumococcal vaccine <65 (3 of 3 - PCV) 05/19/2019 05/19/2018, 05/18/2018, 07/14/2017 Breast Cancer Screening-Mammogram 08/17/2019 019, 07/02/2017 Covid-19 Vaccine (3 - Pfizer risk series) 12/12/2020 11/14/2020, 10/25/2020 Influenza Vaccine (Season Ended) 2025 05/02/2018, 05/02/2018, 07/14/2017, Additional history exists DTaP/Tdap/Td Vaccine (2 - Td or Tdap) 06/09/2029 06/09/2019 Zoster Vaccine Completed 12/13/2018, 11/16, 06/15/2018 Hepatitis C Screening Completed 06/03/2019 Procedures Procedure Name Priority Date/Time Associated Diagnosis Comments HEPATITIS C ANTIBODY Routine 06/03/2019 12:23 PM CDT Rheumatoid arthritis with positive rheumatoid factor, involving unspecified site (HCC) SCREENING MAMMOGRAM BILATERAL W BRIAN Schedule Routine, Read Routine (OP Routine) 08/17/2018 8:55 AM THEATRICAL VARIETY AGENT Encounter for screening mammogram for malignant neoplasm of breast from Last 3 Months or Most Recently Relevant to Health Maintenance Results * Hepatitis C antibody (06/03/2019 12:23 PM CDT) Hep C Ab Nonreactive Nonreactive MARIA L MONTANO Comment: Interpretive Data Positive results should be confirmed by a molecular method. If positive, a second separately collected sample should be submitted for Hepatitis C Virus (HCV) RNA Detection and Quantitation by Real-Time Reverse Administrative Assistant Front Desk-PCR (RT-PCR). Current interpretive data was last revised on 2016. Blood specimen (specimen) 06/03/2019 12:23 PM CDT 06/03/2019 12:42 PM CDT us Georgiana Gastelum MD LAB MICROBIOLOGY - GENERAL ORDER BRYAN Edited Result - Final [facility]ONT[facility] [address] [place] [address] * Screening Mammogram Bilateral W Brian (08/17/2018 8:55 AM THEATRICAL VARIETY AGENT) Anatomical Region Laterality Modality Breast Bilateral Digital Radiogra phy Narrative 08/26/2018 12:21 PM THEATRICAL VARIETY AGENT Mammogram Technique: Bilateral Digital Breast Tomosynthesis, Bilateral C-view 2D Screening mammogram. Views obtained: bilateral craniocaudal and bilateral mediolateral oblique. Computer Aided Detection was performed. Mammogram Findings: The present examination has been compared to prior imaging studies performed at [facility] on 09/28/2012 and 07/02/2017. There are scattered [...] compared to prior imaging studies performed at [facility] on 09/28/2012 and 07/02/2017. There are scattered areas of fibroglandular density. There is no suspicious abnormality in either breast. Impression: Annual screening mammography is recommended. OVERALL FINAL ASSESSMENT: BI-RADS CATEGORY 1: Negative. Terry Solomon MD IMG MAMMO PROCEDURES Final Resul t from Last 3 Months or Most Recently Relevant to Health Maintenance Insurance [employer] [facility] MEDICARE ADVANTAGE [facility] MEDICARE ADVANTAGE MEDICARE [facility] IDPA [facility] MEDICARE ADVANTAGE [facility] MEDICARE ADVANTAGE Care Teams Medical Education Specialist Relationship Specialty Start Date End Date Kye Gonzales MD PCP - General Family Medicine 07/28/23
--- OUTSIDE RECORDS SUMMARY | 2024-12-28 07:31 | XMS_ITS | Encounter Summary ---
Author Organization [facility] Facility Care Team Providers Care Rock Breaker Name Role Phone Terry Solomon MD Primary Care Provider [phone] Terry Solomon MD Primary Care Provider [phone] Barbie Brown DPT Unavailable Samuel Ashraf MD Primary Care Provider + Maya Balderrama OT Unavailable [phone] Samuel Ashraf MD Primary Care Provider + Rica Cramer MD Primary Care Provider Kye Gonzales MD Primary Care Provider [phone] Encounter Details Date Type Department Care Team (Latest Contact Info) Description 12/06/2015 Orders Only [facility] CLINCONV ProviderWilliam MD [address] [place] [id number] Social History Tobacco Use Types Packs/Day Years Used Date Smoking Tobacco: Never Assessed Comments Unknown Sex and Gender Information Value Date Recorded Sex Assigned at Not on file Legal Sex Female 2:56 AM CHRONOGRAPH OPERATOR Gender Identity Female 05/11/2018 8:11 AM CDT Sexual Orientation Not on file documented as of this encounter Plan of Treatment Not on file documented as of this encounter Procedures Procedure Name Priority Date/Time Associated Diagnosis Comments CARDIOLOGY REPORT 01/15/2016 12: 00 AM CDT documented in this encounter Results * CARDIOLOGY REPORT (01/15/2016 12:00 AM CDT) Anatomical Region Laterality Modality Other Narrative 01/15/2016 12:00 AM CDT Ordered by an unspecified provider. us Historical Provider [facility] Final Result documented in this encounter Visit Diagnoses Not on filedocumented in this encounter Care Teams Rock Breaker Relationship Specialty Start Date End Date Terry Solomon MD [address] [place] [id number] PCP - General 12/01/16 11/02/17 Terry Solomon MD [address] [place] [address] PCP - General 11/03/17 10/18/19 Samuel Ashraf MD [address] [place] [address] PCP - General Family Medicine 10/20/19 02/18/22 Samuel Ashraf MD [address] [facility] [place] [address] PCP - General 10/19/19 10/19/19 Rica Cramer MD [address] [facility] [place] [address] PCP - General Family Practice 02/19/22 07/27/23 Kye Gonzales MD [address] [facility] [place] [address] PCP - General Family Medicine 07/28/23 Barbie Brown DPT [address] [facility] [address] [place] [address] Physical Therapist Physical Therapy 08/23/18 02/28/19 Maya Balderrama OT [address] [facility] [address] [place] [address] Occupational Therapist Occupational Therapy 11/08/19 documented as of this encounter
--- OUTSIDE RECORDS SUMMARY | 2024-12-28 07:31 | XMS_ITS | Encounter Summary ---
Author Organization [facility] Address [address] [place] [address] Care Team Providers Care Race Board Attendant Name Role Phone Rica Cramer MD Primary Care Provider [phone] Kye Gonzales MD Primary Care Provider [phone] Encounter Details Date Type Department Care Team (Late st Contact Info) Description 07/15/2022 [employer] Message Enc [facility] Family Medicine [address] [address] [facility] Provider pulmonology Social History Tobacco Use Types Packs/Day Years Used Date Smoking Tobacco: Never Smokeless Tobacco: Never Alcohol Use Standard Drinks/Week Comments Yes 1.7 [...] occasion? Never 10/16/2020 PHQ-2 Answer Date Recorded PHQ-2 Score - If the patient scores above 3, please move on to questions 3-9 5 04/12/2020 Comments No Sex and Gender Information Value Date Recorded Sex Assigned at Female 09/20/2020 11:59 AM PRODUCT MANAGENT INTERN Legal Sex Female 7:31 PM CDT Gender Identity Female 09/20/2020 11:59 AM PRODUCT MANAGENT INTERN Sexual Orientation Straight 09/20/2020 11 :59 AM PRODUCT MANAGENT INTERN documented as of this encounter Plan of Treatment Upcoming Encounters Date Type Department Care Team (Late st Contact Info) Description 02/12/2025 10:00 AM CDT Office Visit [facility] Multispecialty Care - [facility] [address] [facility], [address] [place] [address] Jaqueline Ovalle MD [address] [place] [address] documented as of this encounter Visit Diagnoses Not on filedocumented in this encounter Additional Health Concerns Assessment Noted Time PHQ-9 Depression Total Score: 0 02/29/20 20 8:24 AM CDT documented as of this encounter Care Teams Race Board Attendant Relationship Specialty Start Date End Date Rica Cramer MD [address] [place] [address] PCP - General FAMILY PRACTICE 02/13/22 09/21/23 Kye Gonzales MD [address] [place] [address] PCP - General FAMILY PRACTICE 09/22/23 documented as of this encounter
--- OUTSIDE RECORDS SUMMARY | 2024-12-28 07:31 | XMS_ITS | Clinical Summary ---
Author Organization [facility] Address [address] [place] [address] Phone Care Team Providers Care Cocktail Waitress Name Role Phone Kye Gonzales MD Primary Care Provider [phone] Arvind Rodriguez MD Unavailable [phone] Allergies Active Allergy Reactions Criticality Noted Date Comments Iodinated Contrast Media Anaphylaxis,Rash High 03/09 Pt states she coded on this Pt also coded 3 times with iodine contrast Lisinopril Rash Medium 06/01/2018 Morphine Itching,Unknown Low 01/11/2018 Very little itching Very little itching Very little itching Medications latanoprost (XALATAN) 0.005 % Solution ADMINISTER 1 DROP IN BOTH EYES AT BEDTIME Active acetaminophen (TYLENOL) 650 MG Tablet Controlled Release Take 650 mg by mouth. Active ProAir HFA 108 (90 Base) MCG/ACT Aerosol Solution INHALE 2 puffs BY MOUTH UP TO 4 times A DAY NEEDED ONLY. must go TO THE emergency room IF no RELIEF AFTER THE FOURTH treatment. 8 Active amLODIPine (NORVASC) 10 MG Tablet Take 10 mg by mouth daily. 2 Active Calcium Carbonate-Vit D-Min (Caltrate 600+D Plus Minerals) 600-800 MG-UNIT Tablet Take 1 Each by mouth. 2 Active Cholecalciferol 2000 UNIT Capsule Take 5,000 Units by mouth. Active cloNIDine (CATAPRES) 0.2 MG Tablet Take 1 tablet every 12 hours by oral route. 0 Active Cyanocobalamin 500 MCG Tablet Take by mouth daily. Active folic acid (FOLVITE) 1 MG Tablet Take 1 Tablet by mouth daily. 9 Active furosemide (LASIX) 80 MG Tablet Take 80 mg by mouth. 1 Active levothyroxine (SYNTHROID) 88 MCG Tablet TAKE 1 TABLET BY MOUTH ONCE EVERY MORNING. TAKE 30 MINUTES BEFORE FIRST MEAL 3 Active losartan (COZAAR) 50 MG Tablet Take 1 tablet every 12 hours by oral route. 0 Active potassium chloride SA (KLORCON M) 10 MEQ Tablet Controlled Release Active predniSONE (DELTASONE) 1 MG Tablet Take FOUR tablets (FOUR MG total) by MOUTH daily. 0 Active Xarelto 20 MG Tablet TAKE ONE TABLET BY MOUTH EVERY DAY. (emergency 30 DAY) 2 Active spironolactone (ALDACTONE) 25 MG Tablet Take 25 mg by mouth daily. 2 Active triamcinolone (KENALOG) 0.1 % Ointment Apply a thin layer to affected areas by topical route 2 times a day; Can cause thinning of the skin. 0 Active tiotropium-olod aterol (Stiolto Respimat) 2.5-2.5 MCG/ACT Aerosol Solution INHALE TWO puffs BY MOUTH EVERY DAY 2 Active Zinc Gluconate 10 MG Lozenge by Mouth/Throat route. Active alendronate (FOSAMAX) 70 MG Tablet TAKE 1 TABLET BY MOUTH EVERY 7 DAYS BEFORE A MEAL 4 Active DULoxetine (CYMBALTA) [address] Particles Take 60 mg by mouth daily. 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); Elevated factor VIII level; Vitamin B12 deficiency 10/06/2024 Travel from Last 3 Months Family History Medical History Relation Name Comments Heart Attack Father Hypertension Father Cancer Maternal Aunt stomach Cancer Maternal Grandmother ovary a nd colon Hypertension Maternal Grandmother Diabetes Mother Hypertension Mother Hypertension Sister 1 Hypertension Sister 2 Relation Name Status Comments Father Maternal Aunt Maternal Grandmother Mother Sister 1 Sister 2 Social History Tobacco Use Types Packs/Day Years Used Date Smoking Tobacco: Never Smokeless Tobacco: Never Tobacco Cessation:Counseling Given: No Alcohol Use Standard Drinks/Week Comments Yes 0 (1 standard drink = 0.6 oz pur e alcohol) wine once a month Comments Unknown Sex and Gender Information Value Date Recorded Sex Assigned at Not on file Legal Sex Female 5:58 PM CDT Gender Identity Not on file Sexual Orientation Not on file Last Filed Vital Signs Vital Sign Reading Time Taken Comments Blood Pressure 124/72 06/09/2024 1:58 PM CDT Pulse 87 06/09/2024 1:58 PM CDT Temperature 36.7 C (98 F) 06/09/2024 1:58 PM CDT Respiratory Rate 18 06/09/2024 1:58 PM CDT Oxygen Saturation 99% 06/09/2024 1:58 PM CDT Inhaled Oxygen Concentration - - Weight 73.3 kg (161 lb 11.2 oz) 06/09/2024 1:58 PM CDT Height 160 cm (5' 3 ) 06/09/2024 1:58 PM CDT Body Mass Index 28.64 06/09/2024 1:58 PM CDT Plan of Treatment Health Maintenance Due Date Last Done Comments Hepatitis C Virus (HCV) Screening 1961 TdaP Immunization 1961 Pap Smear 1982 Cervical Cancer Screening (CCS) 1991 HPV/Cotest 1991 Colonoscopy 2006 Colorectal Cancer Screening 2006 Cologuard 2011 Immunochemical Fecal Occult Blood 2011 Zoster Immunization (2 of 2) 02/07/2019 12/13/2018 Pneumococcal Immunization (50+ years) (2 of 2 - PCV) 05/19/2019 05/19/2018, 05/18/2018 Mammogram 08/17/2019 08/17/2018 Influenza Immunization (#1) 04/16/202404/16, 05/02/2018, 08/26/2012, Additional history exists SARS-COV-2 Immunization ( season) 2024 11/14/2020, 10/25/2020 Respiratory Syncytial Virus (RSV) Immunization (Adult) (1 - 1-dose 75+ series) 01/28/2036 Pneumococcal Immunization Combined Discontinued 05/19/2018, 05/18/2018 Hepatitis B Immunization Aged Out No longer eligible based on patient's age to complete this topic Meningococcal Immunization (ACWY) Aged Out No longer eligible based on patient's age to complete this topic Rotavirus Immunization Aged Out No lo nger eligible based on patient's age to complete this topic Procedures Procedure Name Priority Date/Time Associated Diagnosis Comments COMPLETE BLOOD COUNT (CBC) WITH DIFF Routine 10/06/2024 8:25 AM BURR MILL OPERATOR 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 Vitamin B12 deficiency CMP (COMPREHENSIVE METABOLIC PANEL) Routine 10/06/2024 8:25 AM BURR MILL OPERATOR 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 Vitamin B12 deficiency VITAMIN B12 Routine 10/06/2024 8:25 AM BURR MILL OPERATOR 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 Vitamin B12 deficiency FOLIC ACID (FOLATE) Routine 10/06/2024 8 :25 AM BURR MILL OPERATOR 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 Vitamin B12 deficiency IRON W/ IRON BINDING CAPACITY [place] Routine 10/06/2024 8:25 AM BURR MILL OPERATOR 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 Vitamin B12 deficiency FERRITIN Routine 10/06/2024 8:25 AM BURR MILL OPERATOR 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 Vitamin B12 deficiency from Last 3 Months Results * (ABNORMAL) IRON W/ IRON BINDING CAPACITY [place] (10/06/2024 8:25 AM BURR MILL OPERATOR) IRON 36(L) 50 - 212 ug/dL [facility]AT[facility] M[facility] SUPERVIS[facility] UIBC 307 155 - 355 ug/dL [facility] PLATFORM MILL SUPERVIS[facility] TIBC 343 261 - 478 ug/dl [facility] M[facility]PER[facility] % Saturation 10(L) 20 - 50 % [facility]AT[facility] MILL SUPER[facility] Blood 10/06/2024 8:25 AM BURR MILL OPERATOR Narrative [facility]PER[facility] - 10/06/2024 9:10 AM BURR MILL OPERATOR Release to patient->Immediate us Arvind Rodriguez MD LAB SEND OUTS Final Res ult [facility]AT[facility] MILL SUPERVIS[facility] [address] [place] [address], [place] [phone] * VITAMIN B12 (10/06/2024 8:25 AM BURR MILL OPERATOR) Vitamin B12 404 180 - 914 pg/mL [facility]PER[facility] Blood 10/06/2024 8:25 AM BURR MILL OPERATOR Madhu [facility] - 10/06/2024 1:47 PM BURR MILL OPERATOR Release to patient->Immediate us Arvind Rodriguez MD CHEMISTRY ORDERABLES Gwen l Result Performing Organization Address City/[facility]/ZIP Co de Phone Number CANCER PLATFORM MILL SUPERVISOR [facility] [place] [address], [place] [phone] * FOLIC ACID (FOLATE) (10/06/2024 8:25 AM BURR MILL OPERATOR) Folate 17.60 >=5.90 ng/mL [facility]AT[employer] MILL SUPERVISOR [facility] Blood 10/06/2024 8:25 AM BURR MILL OPERATOR Madhu [facility] - 10/06/2024 1:47 PM BURR MILL OPERATOR Release to patient->Immediate IS THE PATIENT REQUIRED TO BE FASTING FOR 12 HOURS?->No us Arvind Rodriguez MD CHEMISTRY ORDERABLES Gwen l Result [facility]ATFORM MILL SUPERVIS[facility] [address] [address], * FERRITIN (10/06/2024 8:25 AM BURR MILL OPERATOR) Ferritin 64 11 - 307 ng/mL [facility] Blood 10/06/2024 8:25 AM BURR MILL OPERATOR Narrative [facility] PLATFORM MILL SUPERVISOR [facility] - 10/06/2024 1:47 PM BURR MILL OPERATOR Release to patient->Immediate Arvind Rodriguez MD CHEMISTRY ORDERABLES Gwen l Result Performing Organization Address City/[facility] Co de Phone Number CANCER PLATFORM MILL SUPERVISOR [facility] [place] [address], * (ABNORMAL) CMP (COMPREHENSIVE METABOLIC PANEL) (10/06/2024 8:25 AM BURR MILL OPERATOR) Glucose 126(H) 70 - 105 mg/dL [facility] Blood Urea Nitrogen 8 7 - 25 mg/dL [facility] Creatinine 0.7 0.6 - 1.2 mg/dL [facility] Sodium 140 136 - 145 mEq/L [facility] Potassium 3.3(L) 3.5 - 5.1 mEq/L [facility] Chloride 99 98 - 107 mEq/L [facility] Bicarbonate 27 21 - 31 mEq/L [facility] Total Bilirubin 0.5 0.3 - 1.0 mg/dL [facility] Alk. Phosphatase 75 34 - 104 U/L [facility] Aspartate Aminotransferase 10(L) 13 - 39 U/L [facility] Alanine Aminotransferase 8 7 - 52 U/L [facility] Total Protein 7.8 6.4 - 8.9 g/dL [facility] Albumin 4.2 3.5 - 5.7 g/dL [facility] Calcium 10.0 8.6 - 10.3 mg/dL [facility] [facility] SUPER[employer] Anion Gap 17.3(H) 7.0 - 15.0 mEq/L [facility] M[facility] SUPER[facility] Globulin 3.6(H) 2.0 - 3.5 g/dL [facility]ATFORM M[employer] SUPERVIS[facility] EGFR 97 >60 ml/min/1. 73m2 [facility] PLATFORM MILL SUPERVISOR [facility] Comment: This eGFR is calculated using 2020 CKD-EPI Creatinine equation without race modifier based on the NKF-ASN task force recommendations Blood 10/06/2024 8:25 AM BURR MILL OPERATOR Narrative [facility]ATFORM M[facility] SUPERVIS[facility] - 10/06/2024 9:10 AM BURR MILL OPERATOR Release to patient->Immediate IS THE PATIENT REQUIRED TO BE FASTING FOR 8 HOURS?->No Arvind Rodriguez MD CHEMISTRY ORDERABLES Gwen zacarias Result CANCER PLATFORM MILL SUPERVISOR [facility] [address] [place] [address], * (ABNORMAL) COMPLETE BLOOD COUNT (CBC) WITH DIFF (10/06/2024 8:25 AM BURR MILL OPERATOR) WBC 12.1(H) 4.0 - 10.0 10*3/uL [facility] HGB 10.7(L) 11.2 - 15.7 g/dL [facility] HCT 33.8(L) 34.1 - 44.9 % [facility]CER PLATFORM MILL SUPERVISOR [facility] PLT 345 163 - 369 10*3/uL [facility] PLATFORM MILL SUPERVISOR [facility] MPV 8.6(L) 9.4 - 12.4 fL [facility] [employer]ATFORM M[employer] SUPERVIS[facility] RBC 3.83(L) 3.93 - 5.22 10*6/uL [facility] PLATFORM MILL SUPERVISOR [facility] MCV 88 79 - 95 fL [facility] PLATFORM MILL SUPERVISOR [facility] MCH 27.9 25.6 - 32.2 pg [facility] PLATFORM MILL SUPERVISOR [facility] MCHC 31.7(L) 32.2 - 36.5 g/dL [facility] PLATFORM MILL SUPERVISOR [facility] RDW 14.6(H) 11.6 - 14.4 % [facility] [employer]ATFORM MILL SUPERVISOR [facility] Absolute Neutrophil Count 10,544 cells/uL [facility] PLATFORM MILL SUPERVISOR [facility] Absolute Seg Count 10,544(H) 1,440 - 6,600 cells/uL [facility] PLATFORM MILL SUPERVISOR [facility] Absolute Lymph Count 1,333 760 - 4,000 cells/uL [facility]CER PLATFORM MILL SUPERVISOR [facility] Absolute [place] Count 121(L) 160 - 1,200 cells/uL [facility]CER PLATFORM MILL SUPERVISOR [facility] Absolute Eos Count 121 0 - 300 cells/uL [facility]ER PLATFORM MILL SUPERVISOR [facility] Segmented Neutrophils 87(H) 36 - 66 % [facility]CER PLATFORM MILL SUPERVISOR [facility] Lymphocytes 11(L) 19 - 40 % [facility] Monocytes 1(L) 4 - 12 % [facility] Eosinophils 1 0 - 3 % [facility] WBC Estimate High [facility]CER PLATFORM MILL SUPERVISOR [facility] Platelet Estimate Normal [facility] PLATFORM MILL SUPERVISOR [facility] RBC Morphology Normal CANCE R PLATFORM MILL SUPERVISOR [facility] Blood 10/06/2024 8:25 AM BURR MILL OPERATOR Narrative [facility]ATFORM M[facility] SUPER[employer] - 10/06/2024 9:32 AM BURR MILL OPERATOR Release to patient->Immediate Arvind Rodriguez MD HEMATOLOGY ORDERABLES Fin al Result CANCER PLATFORM MILL SUPERVISOR [facility] [place] [address], from Last 3 Months Insurance [address] [place] [id number] MEDICA[place] MEDIC[place] C [facility] Care Teams Cocktail Waitress Relationship Specialty Start Date End Date Kye Gonzales MD [address] [place] [id number] PCP - General Family Medicine 11/12/23 Arvind Rodriguez MD [address] [place] [phone] Oncology 11/12/23
--- OUTSIDE RECORDS SUMMARY | 2024-12-28 07:31 | XMS_ITS | Data Portability ---
Author Organization [facility], [employer] Address [address] [place] [address] Care Team Providers Care Wellness Nurse Name Role Phone SHADY JACOBS Primary Care Provider STEVAN Matson Software Testing Specialist Assessment Encounter Date Assessment Date Assessment LastModified by Organization Details LastModified Time 11/30/2018 11/30/2018 Patient presente d to office today for their Medicare Annual Wellness Visit. Education was provided on healthy nutrition, including a diet rich in fruits and vegetables, minimizing simple carbohydrates, salt, and saturated fats. Encouraged regular cardiovascular exercise such as walking at least 30 minutes daily, 5 times per week. Emphasized preventive health measures and educated pt on fall prevention and community-based lifestyle interventions to help reduce health risks and promote healthy living. Patient presented for follow up. Studies ordered as below. Discussed plan with patient/caregiver , who expressed understanding. Follow up as noted below. Not available 11/30/2018 13:22:34 02/22/2019 02/22/2019 Education was provided on healthy nutrition, including a diet rich in fruits and vegetables, minimizing simple carbohydrates, salt, and saturated fats. Encouraged regular cardiovascular exercise such as walking at least 30 minutes daily, 5 times per week. Emphasized preventive health measures and educated pt on fall prevention and community-based lifestyle interventions to help reduce health risks and promote healthy living. Not available 02/22/2019 16:36:20 05/15/2019 05/15/2019 Patient presente d for follow up. Studies ordered as below. Discussed plan with patient/caregiver , who expressed understanding. Follow up as noted below. [email or web address] Not available 05/15/2019 12:10:07 06/09/2019 06/09/2019 Patient presente d for follow up. Studies ordered as below. Discussed plan with patient/caregiver , who expressed understanding. Follow up as noted below. Education was provided on healthy nutrition, including a diet rich in fruits and vegetables, minimizing simple carbohydrates, salt, and saturated fats. Encouraged regular cardiovascular exercise such as walking at least 30 minutes daily, 5 times per week. Emphasized preventive health measures and educated pt on fall prevention and community-based lifestyle interventions to help reduce health risks and promote healthy living. Not available 06/09/2019 12:37:54 09/11/2019 09/11/2019 Patient presente d for follow up. Studies ordered as below. Discussed plan with patient/caregiver , who expressed understanding. Follow up as noted below. Education was provided on healthy nutrition, including a diet rich in fruits and vegetables, minimizing simple carbohydrates, salt, and saturated fats. Encouraged regular cardiovascular exercise such as walking at least 30 minutes daily, 5 times per week. Not available 09/11/2019 14:24:31 Plan of Treatment Reminders Order Date Submit Date Provider Last Modified By Organization Details Last Modified Time Details Appointments None recorded. Lab microalbum in/creatin ine, mass ratio, urine 2019 020 [email or web address] Not available 0 11:58:44 vitamin D, 25-hydroxy , total, serum 2019 020 [email or web address] Not available 0 11:58:44 TSH + free T4, serum 2019 [email or web address] Not available 0 11:58:44 T3, free, serum or plasma 2019 020 [email or web address] Not available 0 11:58:44 CBC w/ auto diff 2019 020 [email or web address] Not available 0 11:58:44 microalbum in/creatin ine, mass ratio, urine 2018 019 [email or web address] Not available 9 08:55:32 vitamin D, 25-hydroxy , total, serum 2018 019 [email or web address] Not available 9 08:55:32 microalbum in/creatin ine, mass ratio, urine 2018 019 GALA Not available 9 07:21:44 CMP, serum or plasma - -- Send copy of reports to rheumatolo gist Dr. Stevan Christianson 2018 019 GALA Not available 9 07:21:43 vitamin D, 25-hydroxy , total, serum - -- Send copy of reports to rheumatolo gist Dr. Stevan Christianson 2018 019 GALA Not available 9 07:21:43 fecal occult blood, immunoassa y, stool - -- Send copy of reports to rheumatolo gist Dr. Stevan Christianson 2018 019 [email or web address] Not available 9 11:18:45 CBC 2018 019 GALA Not available 9 07:21:42 BMP, serum or plasma 2018 019 [email or web address] Not available 9 08:32:26 microalbum in/creatin ine, mass ratio, urine 2018 019 [email or web address] Not available 9 08:32:26 CMP, serum or plasma - -- Send copy of reports to rheumatolo gist Dr. Stevan Christianson 2018 019 [email or web address] Not available 9 08:32:26 vitamin D, 25-hydroxy , total, serum - -- Send copy of reports to rheumatolo gist Dr. Stevan Christianson 2018 019 [email or web address] Not available 9 08:32:26 fecal occult blood, immunoassa y, stool - -- Send copy of reports to rheumatolo gist Dr. Stevan Christianson 2018 019 [email or web address] Not available 9 08:32:26 CBC 2018 019 [email or web address] Not available 9 08:32:[address] [facility] [address], [place], [address], 0 15:12:20 gastroente rologist referral 2019 020 [email or web address] Not available 0 14:37:[address] referral 2018 019 [facility], [address], [place], [address], 9 13:55:33 gastroente rologist referral 2018 019 ATHENAFAX Not available 9 13:55:[address] referral 2018 019 [facility], [address], [place], [address], 9 17:00:52 [facility] [address], [place], [address], 9 08:29:24 gastroente rologist referral 2018 019 ATHENAFAX Not available 9 16:45:[address] referral 2018 019 [facility], [address], [place], [address], 9 14:30:23 [facility], [address], [place], [address], 9 08:59:26 physical therapist referral 2018 019 [email or web address] Not available 9 08:49:43 occupation al therapist referral 2018 019 [email or web address] Not available 9 08:49:44 gastroente rologist referral 2018 [email or web address] Not available 9 13:31:43 Procedures None recorded. Surgeries None recorded. Imaging MAMMO, screening, digital, bilateral [email or web address] [facility], [address] [place], [address], 0 14:37:16 Medication Orders fluticason e propionate 50 mcg/actuat ion nasal spray,susp ension 2019 INTERFACE [facility], [address] [place] [address], [place], [address], 0 14:27:59 Ventolin HFA 90 mcg/actuat ion aerosol inhaler 2019 020 INTERFACE [facility], [address] [place] [address], [place], [address], 0 14:28:01 duloxetine 60 mg capsule,de layed release 2019 020 INTERFACE [facility], [address] [place] [address], [place], [address], 0 14:28:02 clonidine HCl 0.2 mg tablet 2019 020 INTERFACE [facility], [address] [place] [address], [place], [address], 0 14:28:01 Klor-Con 10 mEq tablet,ext ended release 2019 INTERFACE [facility], [address] [place] [address], [place], [address], 0 14:28:00 losartan 50 mg tablet 2019 020 INTERFACE [facility], [address] [place] [address] [address], [place], [address], 0 14:28:01 furosemide 20 mg tablet 2019 020 [facility], [address] [place] [address] [address], [place], [address], 0 14:28:02 amlodipine 5 mg tablet 2019 020 [facility], [address] [place] [address] [address], [place], [address], 0 14:27:59 gabapentin 400 mg capsule 2019 020 [facility], [address] [place] [address] [address], [place], [address], 0 14:28:01 Xarelto 20 mg tablet 2019 020 INTERFACE [facility], [address] [place] [address] [address], [place], [address], 0 14:28:01 fluticason e propionate 50 mcg/actuat ion nasal spray,susp ension 2018 [facility], [address] [place] [address] [address], [place], [address], 9 13:51:48 Ventolin HFA 90 mcg/actuat ion aerosol inhaler 2018 [facility], [address] [place] [address] [address], [place], [address], 9 13:51:48 duloxetine 60 mg capsule,de layed release 2018 [facility], [address] [place] [address] [address], [place], [address], 9 13:51:48 clonidine HCl 0.2 mg tablet 2018 [facility], [address] [place] [address], [place], [address], 9 13:51:48 Klor-Con 10 mEq tablet,ext ended release [address] [facility], [address] [place] [address], [place], [address], 9 11:52:40 losartan 50 mg tablet 2018 [facility], [address] [place] [address], [place], [address], 9 13:51:48 furosemide 20 mg tablet 2018 [facility], [address] [place] [address], [place], [address], 9 13:51:48 amlodipine 5 mg tablet 2018 [facility], [address] [place] [address], [place], [address], 9 13:51:48 gabapentin 400 mg capsule 2018 [facility], [address] [place] [address], [place], [address], 9 13:51:48 Xarelto 20 mg tablet 2018 [facility], [address] [place] [address], [place], [address], 9 13:51:48 nystatin 100,000 unit/mL oral suspension [address] [facility], [address], [place], [address], 9 13:47:53 Zyrtec 10 mg tablet 2018 019 [facility], [facility], [place], [address], 9 12:29:35 Flonase Allergy Relief 50 mcg/actuat ion nasal spray,susp ension 2018 019 [facility], [address] [place] [address] [address], [place], [address], 9 12:29:34 azithromyc in 250 mg tablet 2018 019 [email or web address] [facility], [address] [place] [address], [place], [address], 9 12:35:47 fluticason e propionate 50 mcg/actuat ion nasal spray,susp ension 2018 019 [facility], [facility], [place], [address], 9 16:36:59 Ventolin HFA 90 mcg/actuat ion aerosol inhaler 2018 019 [email or web address] Not available 9 16:40:03 duloxetine 60 mg capsule,de layed release 2018 019 [email or web address] Not available 9 16:40:03 clonidine HCl 0.2 mg tablet 2018 [email or web address] Not available 9 16:40:03 hydrochlor othiazide 12.5 mg capsule 2018 Not available 9 12:55:14 Klor-Con 10 mEq tablet,ext ended release 2018 019 [email or web address] Not available 9 11:52:40 losartan 50 mg tablet 2018 019 INTERFACE [facility], [address] [place] [address] [address], [place], [address], 9 16:36:59 gabapentin 400 mg capsule 2018 [email or web address] Not available 9 16:40:03 Xarelto 20 mg tablet 2018 019 [email or web address] Not available 9 16:40:02 fluticason e propionate 50 mcg/actuat ion nasal spray,susp ension 2018 019 INTERFACE [facility], [address] [place] [address] [address], [place], [address], 9 13:21:28 Ventolin HFA 90 mcg/actuat ion aerosol inhaler 2018 019 [email or web address] Not available 9 13:26:18 duloxetine 60 mg capsule,de layed release 2018 019 [email or web address] Not available 9 13:26:19 clonidine HCl 0.2 mg tablet 2018 019 [email or web address] Not available 9 13:26:18 hydrochlor othiazide 12.5 mg capsule 2018 019 Not available 9 12:55:14 Klor-Con 10 mEq tablet,ext ended release 2018 019 [email or web address] Not available 9 11:52:40 losartan 50 mg tablet 2018 019 INTERFACE [facility], [address] [place] [address] [address], [place], [address], 9 13:21:28 gabapentin 400 mg capsule 2018 019 [email or web address] Not available 9 13:26:19 Xarelto 20 mg tablet 2018 019 [email or web address] Not available 9 13:26:18 Patient TargetsNo targets recorded. Patient Instructions Encounter Date Encounter Id Patient Instructions Last Modified By Organization Details Last Modified Time 11/30/2018 [id number] arthritis: care instructions Not available 11/30/2018 13:20:40 osteoarthritis: care instructions Not available 11/30/2018 13:20:40 home sleep testing* [email or web address] Not available 12/28/2018 08:48:38 dash diet Not available 2018 13:20:40 advised to lose weight Not available 11/30/2018 13:20:40 02/22/2019 [id number] spirometry testing* GALA Not available 02/23/2019 12:21:25 home sleep testing* [email or web address] Not available 02/22/2019 17:48:03 dash diet Not available 2018 16:35:23 medicare preventive services guide Not available 02/22/2019 16:35:23 advance care planning: care instructions Not available 02/22/2019 16:35:24 advised to lose weight Not available 02/22/2019 16:35:24 05/15/2019 [id number] candidiasis: car e instructions [email or web address] Not available 05/15/2019 12:24:45 cough: care instructions Not available 05/15/2019 12:24:45 06/09/2019 [id number] home sleep testing* [email or web address] Not available 07/07/2019 14:21:50 advised to lose weight Not available 06/09/2019 13:50:00 09/11/2019 [id number] advised to lose weight Not available 09/11/2019 14:26:17 -- Due to insurance change, pt advised that she must establish w/ new Primary Care Physician within 30 days from today (09/11/19). Pt agrees. Not available 09/11/2019 14:24:19 Reason for Referral Chief Dispatcher Service Referral for Screening for malignant neoplasm of colon Referring Physician: Shady Jacobs, Internal Medicine, Encounter Date: 11/30/2018 Recovery Specialist Referral for Sc reening for malignant neoplasm of cervix Referring Physician: Lottie Dela Cruz, Encounter Date: 11/30/2018 Home Health Referral for Rhe umatoid arthritis Referring Physician: Lottie Dela Cruz, Encounter Date: 11/30/2018 Physical Therapist Referral for Rheumatoid arthritis Referring Physician: Lottie Dela Cruz, Encounter Date: 11/30/2018 Occupational Therapist Refer ral for Rheumatoid arthritis Referring Physician: Lottie Dela Cruz, Encounter Date: 11/30/2018 Chief Dispatcher Service Referral for Screening for malignant neoplasm of colon Referring Physician: Lottie Dela Cruz, Encounter Date: 02/22/2019 Recovery Specialist Referral for Sc reening for malignant neoplasm of cervix Referring Physician: Lottie Dela Cruz, Encounter Date: 02/22/2019 Home Health Referral for Rhe umatoid arthritis Referring Physician: Lottie Dela Cruz, Encounter Date: 02/22/2019 Chief Dispatcher Service Referral for Screening for malignant neoplasm of colon Referring Physician: Lottie Dela Cruz, Encounter Date: 06/09/2019 Recovery Specialist Referral for Sc reening for malignant neoplasm of cervix Referring Physician: Lottie Dela Cruz, Encounter Date: 06/09/2019 Chief Dispatcher Service Referral for Screening for malignant neoplasm of colon Referring Physician: Lottie Dela Cruz, Encounter Date: 09/11/2019 Recovery Specialist Referral for Sc reening for malignant neoplasm of cervix Referring Physician: Lottie Dela Cruz, Encounter Date: 09/11/2019 Results Created Date Observation Date Name Description Value Unit Range Abnormal Flag Note LastModifiedBy Organization Detail LastModifiedTime 11/08/1911/07/2018 ESR (eryt hrocy te sedim entat ion rate) , blood sed rate 29 mm/HR 0-20 high Not Available [facility] [address] [place], [address], 11/08/2018 07:53:53 11/30/1911/29/2018 T3, free, serum or plasm a FT3 2.2 pg/mL 1.5-4. 1 Not Available [place] [address] [place], [address], 11/30/2018 07:52:51 11/30/1911/29/2018 T4, free, serum FT4 1.49 NG/dL 0.93-1 .70 Not Available [place] [address] [place], [address], 11/30/2018 07:52:51 11/30/1911/29/2018 TSH, serum or plasm a TSH 1.59 ??IU/ mL 0.27-4 .20 Not Available [place] [address] [place], [address], 11/30/2018 07:52:52 02/23/2002/22/2019 CBC white blood cell count 9.9 thous and/u L 3.5-10 .0 Not Available [place] [address] [place], [address], 02/23/2019 07:21:42 02/23/2002/22/2019 CBC red blood cell count 4.4 geneva on/uL 3.5-5. 5 Not Available [place] [address] [place], [address], 02/23/2019 07:21:42 02/23/2002/22/2019 CBC hemoglobin 12.5 g/dL 11.5-1 6.5 Not Available [facility] [place] [address] [place] [place], [address], 02/23/2019 07:21:42 02/23/2002/22/2019 CBC hematocrit 39 % 35-55 Not Avail able [facility] [place] [address] [place], [address], 02/23/2019 07:21:42 02/23/2002/22/2019 CBC MCH 28 pg 25-35 Not Available [facility] [address] [place], [address], 02/23/2019 07:21:42 02/23/2002/22/2019 CBC MCHC 32 g/dL 31-38 Not Available [place] [address] [place], [address], 02/23/2019 07:21:42 02/23/2002/22/2019 CBC MCV 89 fL 75-100 Not Available [place] [address] [place], [address], 02/23/2019 07:21:42 02/23/2002/22/2019 CBC RDW-CV 15 % 11-15 Not Available [place] [address] [place], [address], 02/23/2019 07:21:42 02/23/2002/22/2019 CBC platelet count 356 thous and/u L 100-40 0 Testi ng Perfo rmed at: [facility] [address], [address] [place] [address] Phone : [phone] Fax: Not Available [place] [address] [place], [address], 02/23/2019 07:21:42 02/23/2002/22/2019 CMP, serum or plasm a glucose 93 mg/dL 74-99 Not Available [place] [address] [place], [address], 02/23/2019 07:21:43 02/23/2002/22/2019 CMP, serum or plasm a urea nitrogen, blood (BUN) 8 mg/dL 6-20 Not Available [place] [address] [place], [address], 02/23/2019 07:21:43 02/23/2002/22/2019 CMP, serum or plasm a total bilirubin 0.3 mg/dL 0.0-1. 2 Not Available [address] [place] [place], [address], 02/23/2019 07:21:43 02/23/2002/22/2019 CMP, serum or plasm a total protein 7.7 g/dL 6.6-8. 7 Not Available [place] [address] [place], [address], 02/23/2019 07:21:43 02/23/2002/22/2019 CMP, serum or plasm a alanine aminotransfe rase (ALT) 4 U/L 0-33 Not Available [place] [address] [place], [address], 02/23/2019 07:21:43 02/23/2002/22/2019 CMP, serum or plasm a alkaline phosphatase 108 U/L 40-130 Not Available [place] [address] [place], [address], 02/23/2019 07:21:43 02/23/2002/22/2019 CMP, serum or plasm a aspartate aminotransfe rase (AST) 8 U/L 0-32 Not Available [place] [address] [place], [address], 02/23/2019 07:21:43 02/23/2002/22/2019 CMP, serum or plasm a calcium 10.0 mg/dL 8.6-10 .2 Not Available [address] [place] [place], [address], 02/23/2019 07:21:43 02/23/2002/22/2019 CMP, serum or plasm a albumin 4.3 g/dL 3.5-5. 2 Not Available [place] [address] [place], [address], 02/23/2019 07:21:43 02/23/2002/22/2019 CMP, serum or plasm a CO2 28 mmol/ L 22-29 Not Available [facility] [place] [address] [place], [address], 02/23/2019 07:21:43 02/23/2002/22/2019 CMP, serum or plasm a creatinine, serum 0.7 mg/dL 0.5-0. 9 Not Available [facility] [place] [address] [place], [address], 02/23/2019 07:21:43 02/23/2002/22/2019 CMP, serum or plasm a sodium, serum 143 mmol/ L 136-14 5 Not Available [place] [address] [place], [address], 02/23/2019 07:21:43 02/23/2002/22/2019 CMP, serum or plasm a potassium, serum 3.6 mmol/ L 3.5-5. 1 Not Available [place] [address] [place], [address], 02/23/2019 07:21:43 02/23/2002/22/2019 CMP, serum or plasm a chloride, serum 105 mmol/ L 98-107 Not Available [address] [place] [place], [address], 02/23/2019 07:21:43 02/23/2002/22/2019 CMP, serum or plasm a eGFR 93 >59 Persi stent reduc tion for 3 month s or more in an eGFR <60 mL/mi n/1.7 3 m2 defin es CKD. Patie nts with eGFR value s>/=6 0 mL/mi n/1.7 3 m2 may also have CKD if evide nce of persi stent protu cecily a is prese nt. Addit ional infor ish villegas may be found at www.k doqi. org. Not Available [facility] [place] [address] [place], [address], 02/23/2019 07:21:43 02/23/20 19 02/22/2019 vitam in D, 25-hy droxy , total , serum vitamin D 25.1 NG/mL 30.0-9 6.0 low Defic ient: <=20 ng/mL Insuf ficie nt: 21-29 ng/mL Suffi cient : >=30 ng/mL Testi ng Perfo rmed at: [facility] [address], [address] [place] [address] Phone : Fax: Not Available [place] [address] [place], [address], 02/23/2019 07:21:43 02/23/20 19 02/22/2019 micro album in/cr eatin ine, mass ratio , urine urine microalbumin 2 mg/L 0-30 Not Available [address] [place] [address] [place], [address], 02/23/2019 07:21:44 02/23/20 19 02/22/2019 micro album in/cr eatin ine, mass ratio , urine urine creatinine 24.61 Not Available [address] [place] [address] [place], [address], 02/23/2019 07:21:44 02/23/20 19 02/22/2019 micro album in/cr eatin ine, mass ratio , urine urine microalbumin /creatinine ratio 7 mg/g_ creat inine 0-30 Not Available [place] [address] [place], [address], 02/23/2019 07:21:44 02/24/20 19 02/23/2019 monica metry testi ng* Spirometry Not Available [facility], [facility] [address], [place], [address], 02/22/2019 16:11:02 11/09/19 19 11/08/2018 XR, ankle , 2 view No observ ation record ed. [email or web address] [facility] [address] [place], [address], 11/10/2018 10:00:36 11/09/19 19 11/08/2018 XR, ankle , 2 view No observ ation record ed. [email or web address] Not Available 10:00:36 11/12/19 19 11/11/2018 XR, ankle No observ ation record ed. Not Available 2018 16:58:37 11/17/19 19 11/16/2018 MRI, ankle , w/o contr ast No observ ation record ed. [email or web address] [facility] [address] [place], [address], 11/17/2018 10:58:29 11/17/19 19 11/16/2018 MRI, ankle , w/o contr ast No observ ation record ed. [email or web address] [facility] [address] [place], [address], 11/17/2018 10:58:51 02/23/20 19 monica metry testi ng* No observ ation record ed. [email or web address] Not Available 2018 12:18:11 Result Notes None recorded. 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 2015 Shady Jacobs MD [address], [place], [address], [facility] 6 22:23:41 Vitamin D deficienc y 53251977 Active 2015 Shady Jacobs MD [address], [place], [address], [place] [facility] 6 22:23:48 Soft tissue swelling of knee joint 877636852 [facility] 2015 [facility] 6 12:42:37 Neuropath y 788766690 Active 2015 Shady Jacobs MD [address], [place], [address], [facility] 6 22:46:23 Benign essential hypertens ion 0013936 Active 2015 Shady Jacobs MD [address], [place], [address], [facility] 6 22:46:25 Atopic dermatiti s 21950669 Active 2015 Shady Jacobs MD [address], [place], [address], [facility] 6 22:46:27 Knee pain Active 2015 Shady [id number]|2024-12-28 07:31:00|2024-12-28 07:31:00|XMS_ITS|BKG DAEMON|External Medical Summaries|[id number]|" Encounter Summary Created on: December 28, 2024 Betsy Mena : 1960 Sex: Female Author Organization [facility] Address [address] [place] [id number] Care Team Providers Care Wellness Nurse Name Role Phone Rica Cramer MD Primary Care Provider [phone] Kye Gonzales MD Primary Care Provider [phone] Encounter Details Date Type Department Care Team (Late st Contact Info) Description 04/02/2022 [employer] Message [address] [address] [place] Provider Breast Cancer screening, colorectal cancer screening Social History Tobacco Use Types Packs/Day Years [...] Sex Assigned at Female 09/20/2020 11:59 AM STEAMTABLE WORKER Legal Sex Female 7:31 PM CDT Gender Identity Female 09/20/2020 11:59 AM STEAMTABLE WORKER Sexual Orientation Straight 09/20/2020 11 :59 AM STEAMTABLE WORKER documented as of this encounter Plan of Treatment Upcoming Encounters Date Type Department Care Team (Late st Contact Info) Description 02/12/2025 10:00 AM CDT Office Visit [facility] - [facility] [address], [address] [place] [address] Jaqueline Ovalle MD [address] [place], [place] [id number] documented as of this encounter Visit Diagnoses Not on filedocumented in this encounter Additional Health Concerns Assessment Noted Time PHQ-9 Depression Total Score: 0 02/29/20 20 8:24 AM CDT documented as of this encounter Care Teams Wellness Nurse Relationship Specialty Start Date End Date Rica Cramer MD [address] [place] [address] PCP - General FAMILY PRACTICE 02/13/22 09/21/23 Kye Gonzales MD [address] [place] [address] PCP - General FAMILY PRACTICE 09/22/23 documented as of this encounter "
--- OUTSIDE RECORDS SUMMARY | 2024-12-28 07:31 | XMS_ITS | Encounter Summary ---
Author Organization [facility] Address [address] [place] [address] Phone Care Team Providers Care Mechanical Systems Design Engineer Name Role Phone Kye Gonzales MD Primary Care Provider [phone] Arvind Rodriguez MD Unavailable [phone] Encounter Details Date Type Department Care Team (Late st Contact Info) Description 01/28/2024 Telephone [facility] [address] [address] Arvind Rodriguez MD [address] [address] Social History Tobacco Use Types Packs/Day Years [...] on file documented as of this encounter Miscellaneous Notes * Telephone Encounter - Paulina Suazo - 01/28/2024 3:06 PM CDT Pt missed appt called to rs no answer left voicemail also sent letter out. documented in this encounter Plan of Treatment Not on file documented as of this encounter Visit Diagnoses Not on filedocumented in this encounter Care Teams Mechanical Systems Design Engineer Relationship Specialty Start Date End Date Kye Gonzales MD [address] [place] [address] [address] [place] [address] PCP - General Family Medicine 11/12/23 Arvind Rodriguez MD [address] [place] [id number] Oncology 11/12/23 documented as of this encounter
--- OUTSIDE RECORDS SUMMARY | 2024-12-28 07:31 | XMS_ITS | Encounter Summary ---
Author Organization [facility] Address [address] [place] [address] Care Team Providers Care Assembler Name Role Phone Terry Solomon MD Primary Care Provider [phone] Samuel Ashraf MD Primary Care Provider [phone] Rica Cramer MD Primary Care Provider Kye Gonzales MD Primary Care Provider [phone] Encounter Details Date Type Department Care Team (Late st Contact Info) Description 02/18/2018 Hosp Visit [facility] [place], [place] [id number] Whitney Snell, [place] [address] Social History Tobacco Use Types Packs/Day Years Used Date Smoking Tobacco: Never Assessed Comments Unknown Sex and Gender Information Value Date Recorded Sex Assigned at Female 09/20/2020 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 Legal Sex Female 7:31 PM CDT Gender Identity Female 09/20/2020 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 Sexual Orientation Straight 09/20/2020 11 :59 AM REHABILITATION NURSE documented as of this encounter Plan of Treatment Upcoming Encounters Date Type Department Care Team (Late st Contact Info) Description 02/12/2025 10:00 AM CDT Office Visit [facility] [address] [facility], [address] [place] [address] Jaqueline Ovalle MD [address] [place] [address] documented as of this encounter Visit Diagnoses Not on filedocumented in this encounter Additional Health Concerns Infection Onset Date Last Indicated Resolved Time COVID-19 Rule Out 01/16/2020 01/16/2020 03/16/2020 12:33 AM CDT COVID-19 Rule Out 11/14/2021 11/14/2021 11/14/2021 11:43 AM CDT COVID-19 Rule Out 11/14/2021 11/14/2021 11/15/2021 2:51 PM CDT COVID-19 Rule Out 02/19/2022 02/19/2022 02/20/2022 2:39 AM CDT documented as of this encounter Care Teams Assembler Relationship Specialty Start Date End Date Terry Solomon MD [address] [place] [address] PCP - General INTERNAL MEDICINE 01/01/18 09/05/19 Samuel Ahsraf MD [address] [place] [address] PCP - General FAMILY PRACTICE 09/06/19 02/12/22 Rica Cramer MD [address] [place] [address] PCP - General FAMILY PRACTICE 02/13/22 09/21/23 Kye Gonzales MD [address] [place] [address] PCP - General FAMILY PRACTICE 09/22/23 documented as of this encounter
--- OUTSIDE RECORDS SUMMARY | 2024-12-28 07:31 | XMS_ITS | Encounter Summary ---
Author Organization [facility] Address [facility] [facility] [place] [address] Care Team Providers Care Direct Support Professional Home Health Name Role Phone Rica Cramer MD Primary Care Provider [phone] Kye Gonzales MD Primary Care Provider [phone] Reason for Visit * Reason Onset Date Comments Med Question 10/19/2022 Encounter Details Date Type Department Care Team (Late st Contact Info) Description 10/19/2022 Telephone [facility] Diabetes and Metabolism [address] [place] [address] Megan Quintana MD [address] [place] [address] Med Question Social History Tobacco Use Types Packs/Day Years Used Date Smoking Tobacco: Never Smokeless Tobacco: Never Alcohol Use Standard Drinks/Week Comments Yes 0 (1 standard drink = 0.6 oz pur e alcohol) 1 glass of wine a month Comments No Sex and Gender Information Value Date Recorded Sex Assigned at Not on file 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 Stated that they have been delayed due to pending gallbladder removal, but has not been scheduled for removal yet. UP TRUCK DRIVER documented in this encounter Plan of Treatment Upcoming Encounters Date Type Department Care Team (Late st Contact Info) Description 03/28/2025 9:00 AM CDT Office Visit [facility] - Ophthalmology [address] [place] [phone] Willie Birch MD [address] [facility] [place] [id number] documented as of this encounter Visit Diagnoses Not on filedocumented in this encounter Care Teams Direct Support Professional Home Health Relationship Specialty Start Date End Date Rica Cramer MD [address] [place] [address] PCP - General 03/06/22 11/23/23 Kye Gonzales MD [address] [place] [address] [address] [place] [address] PCP - General Family Medicine 11/24/23 documented as of this encounter
[2024-12-28 07:40] VITALS: PULSE 95
--- NOTE | 2024-12-28 07:45 | ED_ITS ---
HPI - Chest Pain General Chief Complaint: Chest Pain Stated Complaint: chest pain Time Seen by Provider: 12/28/24 07:30 History of Present Illness HPI narrative: For the last 2 days patient has noticed a slight pain to her left chest when she takes deep breaths, she has had a very minimal congestion symptoms and is slight cough that started today. She saw her PCP who prescribed steroids and had not picked them up yet today because they were not ready, when she started noticing the chest pain with coughing so came in here to get checked out. She does have VTE history but is on blood thinners and has not missed any doses. History of lupus. Related Data Home Medications Medication Instructions Recorded Confirmed Last Taken Type acetaminophen 650 mg 650 mg PO PRN PRN Pain 11/30/21 12/28/24 1 Day Ago History tablet,extended release ~07/26/22 albuterol sulfate 90 mcg/actuation 90 mcg inhalation DAILY 11/30/21 12/28/24 1 Day Ago History aerosol inhaler (Ventolin HFA) ~07/26/22 alendronate 70 mg tablet 70 mg PO DAILY 11/30/21 12/28/24 Unknown History clonidine HCl 0.2 mg tablet 0.2 mg PO BID 11/30/21 12/28/24 12/27/24 History diclofenac sodium 1 % topical gel 1 g topical DAILY 11/30/21 12/28/24 Unknown History fluticasone propionate 50 50 mcg intranasal DAILY 11/30/21 12/28/24 Unknown History mcg/actuation nasal spray,suspension folic acid 1 mg tablet 1 mg PO DAILY 11/30/21 12/28/24 12/27/24 History furosemide 80 mg tablet 80 mg PO DAILY 11/30/21 12/28/24 12/27/24 History levothyroxine 88 mcg tablet 88 mcg PO DAILY 11/30/21 12/28/24 12/28/24 History losartan 50 mg tablet 50 mg PO DAILY 11/30/21 12/28/24 12/27/24 History prednisone 1 mg tablet 4 mg PO DAILY 11/30/21 12/28/24 1 Day Ago History ~07/26/22 rivaroxaban 20 mg tablet (Xarelto) 20 mg PO DAILY 11/30/21 12/28/24 12/27/24 History tiotropium 2.5 mcg-olodaterol 2.5 2.5 inh inhalation DAILY 11/30/21 12/28/24 12/21/24 History mcg/actuation mist for inhalation (Stiolto Respimat) triamcinolone acetonide 0.1 % 0.1 applic topical BID 11/30/21 12/28/24 12/26/24 History topical ointment amlodipine 10 mg tablet 10 mg PO DAILY 07/27/22 12/28/24 12/27/24 History cyclosporine 0.05 % eye drops in a 1 drp EACH EYE USEASDIRECTD 07/01/24 12/28/24 12/27/24 History dropperette (Restasis) duloxetine 60 mg capsule,delayed 60 mg PO DAILY 07/01/24 12/28/24 12/26/24 History release latanoprost 0.005 % eye drops 1 drp EACH EYE HS 07/01/24 12/28/24 12/27/24 History potassium chloride 20 mEq 20 meq PO BID 07/01/24 12/28/24 12/27/24 History tablet,extended release(part/cryst) spironolactone 25 mg tablet 25 mg PO DAILY 07/01/24 12/28/24 12/27/24 History ferrous sulfate 325 mg (65 mg 325 mg PO DAILY 12/28/24 12/28/24 Unknown History iron) tablet (FeroSul) methylprednisolone 4 mg tablets in 4 mg PO DAILY 12/28/24 12/28/24 Unknown History a dose pack Allergies Allergy/AdvReac Type Severity Reaction Status Date / Time Iodinated Contrast Media Allergy Severe Other Verified 07/01/24 08:37 iohexol (From contrast - CT, Allergy Severe Other Verified 07/01/24 08:37 X-RAY) morphine Allergy Intermediate Itching Verified 07/01/24 08:37 Contrast Media Allergy Severe Other Uncoded 07/01/24 08:37 Review of Systems 2 Review of Systems: All systems reviewed & are unremarkable except as noted in HPI and below PMFSH Past Medical History Medical History COPD (chronic obstructive pulmonary disease) History of DVT (deep vein thrombosis) 2020 History of TIA (transient ischemic attack) 2006 Hypertension Lupus Peripheral vascular disease Rheumatoid arthritis Sjogren syndrome with dental involvement Surgical History Surgical History History of laparotomy x2 for ectopic pregnancies Family History Family History Mother Family history of glaucoma Family history of rheumatoid arthritis Family history of arthritis Diabetes mellitus Sibling Asthma Father Family history of alcoholism Grandparent Carcinoma of colon Other Family history of thyroid disease Social History Social History Social History: Patient lives alone in a apartment without pets. Patient states that she drinks 1 glass of wine 1 time a month and does not partake in nicotine/tobacco products or illicit drugs. Smoking status: Never smoker Second hand tobacco smoke exposure: No Alcohol intake: current Drinks per week: 1 Substance use: never Substance use type: does not use Lack of Transportation: YES Lack of Food: Often True Current Housing: I Have Housing Concerned About Future Housing: No Difficulty Paying Gas/Electric Bills: YES Difficulty Paying for Meds: No Currently Unemployed: No Education: Associate Degree Difficulty w/ Childcare or Family Care: No Spiritual care concerns: No Exam 2 Narrative: EXAMINATION OF ORGAN SYSTEMS/BODY AREAS: Constitutional: Vital signs per nursing GENERAL:[No acute distress, non-toxic appearing.] HEAD: Normal with no signs of head trauma. EYES: EOMI, conjunctiva normal ENT: Hearing grossly intact LUNGS: Nonlabored breathing. Clear to auscultation bilaterally HEART: [Regular rate and rhythm], no chest wall tenderness ABD: [Soft], [nontender to palpation] EXT: Normal range of motion, no lower extremity edema or tenderness SKIN: [No rashes or lesions.] NEURO: [Alert and oriented x 3. No gross focal sensory or strength deficits.] PSYCH: Normal affect Course Vital Signs Vital signs: Vital Signs Temperature 97.6 F 12/28/24 07:30 Pulse Rate 89 12/28/24 07:30 Respiratory Rate 20 12/28/24 07:30 Blood Pressure 194/108 H 12/28/24 07:30 Pulse Oximetry 100 12/28/24 07:30 Oxygen Delivery Room Air 12/28/24 07:30 Temperature 97.6 F 12/28/24 07:30 Pulse Rate 83 12/28/24 09:23 Respiratory Rate 14 12/28/24 09:23 Blood Pressure 145/84 H 12/28/24 09:23 Pulse Oximetry 98 12/28/24 09:23 Oxygen Delivery Room Air 12/28/24 07:46 MDM - Chest Pain MDM Narrative Medical decision making narrative: ED COURSE AND MEDICAL DECISION MAKIN-year-old female presenting with chest pain with coughing. EKG done in triage negative for acute ischemic changes. Cardiac workup is initiated. HEART score is 3 with negative troponin and no exertional chest pain making ACS unlikely. Negative D-dimer and patient compliant with her blood thinners making PE unlikely. Presentation not consistent with dissection or aneurysm without radiation of pain or pulse deficits. CXR negative for mediastinal widening. No abdominal pain or signs of sepsis that would be concerning for esophageal perforation or mediastinitis. No cardiomegaly or JVD to suggest pericardial effusion/tamponade. On repeat evaluation just prior to discharge, the patient is no acute distress. I had a long discussion with the patient and with shared decision making, she is comfortable with outpatient management. She was given clear return instructions by myself in person as well as on discharge paperwork. Lab Data 12/28/24 07:52 12/28/24 07:52 Labs: Lab Results 12/28/24 12/28/24 12/28/24 Range/Units 07:52 07:52 09:06 WBC 11.1 H (4.5-10.0) K/mm3 RBC 4.50 (4.2-5.4) M/mm3 Hgb 12.7 (12.0-15.0) g/dL Hct 41.0 (37.0-47.0) % MCV 91.1 (80-100) fl MCH 28.2 (26-34) pg MCHC 31.0 L (32-36) g/dl RDW 15.8 H (11.5-14.5) % Plt Count 298 (150-375) k/mm3 MPV 8.9 (7.4-10.4) fl Immature Gran % (Auto) 0.4 (0-0.5) % Neut % (Auto) 84.7 H (45.5-73.1) % Lymph % (Auto) 12.3 L (18.3-44.2) % [place] % (Auto) 2.3 L (2.6-8.5) % Eos % (Auto) 0.1 (0-4.4) % Baso % (Auto) 0.2 (0.2-1.2) % Lymph # (Auto) 1.36 (0.9-3.2) K/mm3 [place] # (Auto) 0.3 (0.1-0.6) K/mm3 Eos # (Auto) 0.0 (0-0.3) K/mm3 Baso # (Auto) 0.0 (0.0-0.1) K/mm3 Abs Immat Gran (auto) 0.04 H (0.00-0.031) K/mm3 Absolute Neuts (auto) 9.4 H (1.3-6.7) K/mm3 Absolute Nucleated RBC 0.000 (0.0-0.012) K/mm3 Nucleated RBC % 0.0 (0.0-0.2) % PT 16.2 H (11.1-14.7) Seconds INR 1.3 APTT 26.3 (22.3-36.8) Seconds D-Dimer 0.32 Cancelled (<0.48) ug/mL Sodium 139 (137-145) mmol/L Potassium 3.8 (3.4-5.0) mmol/L Chloride 103 (98-107) mmol/L Carbon Dioxide 25 (22-30) mmol/L Anion Gap 11 (4-12) mmol/L BUN 14 D (7-17) mg/dL Creatinine 0.78 (0.7-1.0) mg/dL Estim Creat Clear Calc 62 ml/min Estimated GFR > 60 (59 - ) Glucose 147 H (65-110) mg/dL Calcium 10.3 H (8.4-10.2) mg/dL Total Bilirubin 0.7 (0.2-1.3) mg/dL AST 25 (14-36) U/L ALT 22 (6-35) U/L Alkaline Phosphatase 103 (38-126) U/L Troponin I < 0.012 (0.000-0.034) ng/mL Total Protein 9.0 H (6.3-8.2) g/dL Albumin 4.8 (3.5-5.1) g/dL Lipase 175 (23-300) U/L Urine Color Yellow (Yellow) Urine Appearance Clear (Clear) Urine pH 6.0 (5.0-9.0) Ur Specific [place] 1.018 (1.001-1.035) Urine Protein Trace (Negative) mg/dL Urine Glucose (UA) Negative (Negative) mg/dL Urine Ketones Negative (Negative) mg/dL Ur Blood (Man) Trace (Negative) Urine Nitrate Negative (Negative) Urine Bilirubin Negative (Negative) Urine Urobilinogen 0.2 (<2.0) mg/dL Leukocyte Esterase Rfl Negative (Negative) EDINSON/UL Urine RBC 6-10 H (0-2) /hpf Urine WBC 0-5 (0-3) /hpf Ur Squamous Epith Cells None seen (Few) /hpf Urine Bacteria None seen /hpf Urine Casts 0-2 ECG Data EKG #1: Interpretation: EKG on my independent interpretation shows sinus rhythm rate 75, NM 145 QRS 100, QTC 400, normal axis, some ST depression throughout without ST elevation, no prior EKG for comparison Discharge Plan Discharge Clinical Impression: Atypical chest pain Patient Disposition: Home Condition: Stable Instructions: Chest Pain (ED), Pleurisy (ED) Additional Instructions: Please take your medications as prescribed and follow-up with your doctor. You can always return to the emergency room for any further issues. Patient Language: Slovenian Prescriptions: No Action latanoprost 0.005 % drops 1 drp EACH EYE HS spironolactone 25 mg tablet 25 mg PO DAILY potassium chloride 20 mEq tablet,ER particles/crystals 20 meq PO BID cyclosporine [Restasis] 0.05 % dropperette 1 drp EACH EYE USEASDIRECTD duloxetine 60 mg capsule,delayed release(DR/EC) 60 mg PO DAILY amlodipine 10 mg Tablet 10 mg PO DAILY acetaminophen 650 mg Tablet Extended Release 650 mg PO PRN PRN (Reason: Pain) levothyroxine 88 mcg Tablet 88 mcg PO DAILY clonidine HCl 0.2 mg Tablet 0.2 mg PO BID furosemide 80 mg Tablet 80 mg PO DAILY prednisone 1 mg Tablet 4 mg PO DAILY folic acid 1 mg Tablet 1 mg PO DAILY losartan 50 mg tablet 50 mg PO DAILY alendronate 70 mg tablet 70 mg PO DAILY triamcinolone acetonide 0.1 % ointment 0.1 applic TOPICAL BID albuterol sulfate [Ventolin HFA] 90 mcg/actuation HFA aerosol inhaler 90 mcg INHALATION DAILY fluticasone propionate 50 mcg/actuation spray,suspension 50 mcg INTRANASAL DAILY diclofenac sodium 1 % gel 1 g TOPICAL DAILY Xarelto 20 mg tablet 20 mg PO DAILY Stiolto Respimat 2.5-2.5 mcg/actuation mist 2.5 inh INHALATION DAILY ferrous sulfate [FeroSul] 325 mg (65 mg iron) tablet 325 mg PO DAILY methylprednisolone 4 mg tablets,dose pack 4 mg PO DAILY Follow-up/Referrals: Christian,Kye Headley MD [Primary Care Provider] -
[2024-12-28 07:46] VITALS: O2SAT 100
[2024-12-28 08:05] LABS: Basophils Percent Auto 0.2 % (0.2-1.2); Eosinophils Percent Auto 0.1 % (0-4.4); Hemoglobin 12.7 g/dL (12.0-15.0); Immature Granulocyte Absolute 0.04 K/mm3 (0.00-0.031); Immature Granulocyte Percent A 0.4 % (0-0.5); Lymphocytes Absolute Auto 1.36 K/mm3 (0.9-3.2); Lymphocytes Percent Auto 12.3 % (18.3-44.2); Mean Corpuscular Hemoglobin 28.2 pg (26-34); Mean Corpuscular Volume 91.1 fl (80-100); Mean Platelet Volume 8.9 fl (7.4-10.4); Monocytes Absolute Auto 0.3 K/mm3 (0.1-0.6); Monocytes Percent Auto 2.3 % (2.6-8.5); Neutrophils Absolute Auto 9.4 K/mm3 (1.3-6.7); Neutrophils Percent Auto 84.7 % (45.5-73.1); Platelet Count Result 298 k/mm3 (150-375); Red Cell Distribution Width 15.8 % (11.5-14.5); White Blood Count 11.1 K/mm3 (4.5-10.0)
[2024-12-28] MEDS: ASPIRIN 81 MG CHEWABLE TABLET 324 MG PO (08:07)
[2024-12-28 08:16] LABS: Alanine Aminotransferase 22 U/L (6-35); Albumin Level 4.8 g/dL (3.5-5.1); Alkaline Phosphatase 103 U/L (38-126); Anion Gap 11 mmol/L (4-12); Aspartate Amino Transferase 25 U/L (14-36); Bilirubin,Total 0.7 mg/dL (0.2-1.3); Blood Urea Nitrogen 14 mg/dL (7-17); Calcium 10.3 mg/dL (8.4-10.2); Carbon Dioxide 25 mmol/L (22-30); Chloride 103 mmol/L (98-107); Estimated CRCL calculation 62 ml/min; Estimated Glomerular Filt Rate > 60; Glucose 147 mg/dL (65-110); Lipase 175 U/L (23-300); Potassium 3.8 mmol/L (3.4-5.0); Sodium 139 mmol/L (137-145)
[2024-12-28 08:22] LABS: INR 1.3; Prothrombin Time 16.2 Seconds (11.1-14.7)
[2024-12-28 08:26] LABS: Partial Thromboplastin Time 26.3 Seconds (22.3-36.8)
[2024-12-28 08:28] LABS: Troponin I < 0.012 ng/mL (0.000-0.034)
[2024-12-28 08:37] LABS: D Dimer 0.32 ug/mL (<0.48)
[2024-12-28 09:22] LABS: Add Urine Microscopic? YES; Appearance Urine Clear (Clear); Bacteria Urine None Seen /hpf; Bilirubin Urine Negative (Negative); Blood Urine Trace (Negative); Color Urine Yellow (Yellow); Glucose Urine UA Negative (Negative); Ketones Urine Negative (Negative); Leukocyte Esterase Ur Negative LEU/UL (Negative); Nitrate Urine Negative (Negative); Non Pathogenic Casts 0-2; Protein Urine Trace mg/dL (Negative); Specific Grav Ur 1.018 (1.001-1.035); Squamous Epithelial Cell Urine None Seen /hpf (Few); Urobilinogen Urine 0.2 mg/dL (<2.0); WBC Urine 0-5 /hpf (0-3)
[2024-12-28 09:23] VITALS: BP 145/84; PULSE 83; RESP 14; O2SAT 98
== END 2024-12-28 09:24 | disposition home or self-care (01) ==
PROVIDERS: Emergency Provider Emergency Medicine; PCP Family Medicine
DX: R07.89 Other chest pain (principal); I10 Essential (primary) hypertension; Z86.73 Personal history of transient ischemic attack (TIA), and cerebral infarction without residual deficits; J44.9 Chronic obstructive pulmonary disease, unspecified; M06.9 Rheumatoid arthritis, unspecified; Z79.899 Other long term (current) drug therapy; Z79.01 Long term (current) use of anticoagulants
CPT/HCPCS: 36415; 71046; 80053; 81001; 83690; 84484; 85025; 85380; 85610; 85730; 93005; 99284; A9270

== ENCOUNTER 2025-06-08 09:22 | Emergency (ER) | payer MEDICARE, MEDICAID, SELFPAY ==
[2025-06-08 09:39] VITALS: BP 121/86; PULSE 80; RESP 16; TEMP 36.2; O2SAT 100
[2025-06-08 10:03] LABS: EDCOVIDSCREEN Negative (Negative); EDINFLUASCREEN Negative (Negative); EDINFLUBSCREEN Negative (Negative); EDSTREPNEGPOS1 Negative (Negative)
--- NOTE | 2025-06-08 10:14 | ED.GENADULT ---
HPI - General Adult General Chief complaint: Upper Respiratory Infection Stated complaint: SORE THROAT Source: patient Mode of arrival: ambulatory Limitations: no limitations History of Present Illness HPI narrative: Patient presents for evaluation of sore throat. Symptom onset this morning. She denies any fever, chills, cough, shortness of breath, otalgia, nausea, vomiting, diarrhea. No recent sick contacts to her knowledge. She does not smoke. She is not taking any medication to assist with her symptoms. Related Data Home Medications ?Medication ?Instructions ?Recorded ?Confirmed ?Last Taken ?Type acetaminophen 650 mg 650 mg PO PRN PRN Pain 11/30/21 12/28/24 1 Day Ago History tablet,extended release ~07/26/22 albuterol sulfate 90 mcg/actuation 90 mcg inhalation DAILY 11/30/21 12/28/24 1 Day Ago History aerosol inhaler (Ventolin HFA) ~07/26/22 alendronate 70 mg tablet 70 mg PO DAILY 11/30/21 12/28/24 Unknown History clonidine HCl 0.2 mg tablet 0.2 mg PO BID 11/30/21 12/28/24 12/27/24 History diclofenac sodium 1 % topical gel 1 g topical DAILY 11/30/21 12/28/24 Unknown History fluticasone propionate 50 50 mcg intranasal DAILY 11/30/21 12/28/24 Unknown History mcg/actuation nasal spray,suspension folic acid 1 mg tablet 1 mg PO DAILY 11/30/21 12/28/24 12/27/24 History furosemide 80 mg tablet 80 mg PO DAILY 11/30/21 12/28/24 12/27/24 History levothyroxine 88 mcg tablet 88 mcg PO DAILY 11/30/21 12/28/24 12/28/24 History losartan 50 mg tablet 50 mg PO DAILY 11/30/21 12/28/24 12/27/24 History prednisone 1 mg tablet 4 mg PO DAILY 11/30/21 12/28/24 1 Day Ago History Held on 12/28/24. ~07/26/22 Instructions: Patient no longer taking rivaroxaban 20 mg tablet (Xarelto) 20 mg PO DAILY 11/30/21 12/28/24 12/27/24 History tiotropium 2.5 mcg-olodaterol 2.5 2.5 inh inhalation DAILY 11/30/21 12/28/24 12/21/24 History mcg/actuation mist for inhalation (Stiolto Respimat) triamcinolone acetonide 0.1 % 0.1 applic topical BID 11/30/21 12/28/24 12/26/24 History topical ointment amlodipine 10 mg tablet 10 mg PO DAILY 07/27/22 12/28/24 12/27/24 History cyclosporine 0.05 % eye drops in a 1 drp EACH EYE USEASDIRECTD 07/01/24 12/28/24 12/27/24 History dropperette (Restasis) duloxetine 60 mg capsule,delayed 60 mg PO DAILY 07/01/24 12/28/24 12/26/24 History release latanoprost 0.005 % eye drops 1 drp EACH EYE HS 07/01/24 12/28/24 12/27/24 History potassium chloride 20 mEq 20 meq PO BID 07/01/24 12/28/24 12/27/24 History tablet,extended release(part/cryst) spironolactone 25 mg tablet 25 mg PO DAILY 07/01/24 12/28/24 12/27/24 History ferrous sulfate 325 mg (65 mg 325 mg PO DAILY 12/28/24 12/28/24 Unknown History iron) tablet (FeroSul) Allergies Allergy/AdvReac Type Severity Reaction Status Date / Time Iodinated Contrast Media Allergy Severe Other Verified 07/01/24 08:37 iohexol (From contrast - CT, Allergy Severe Other Verified 07/01/24 08:37 X-RAY) morphine Allergy Intermediate Itching Verified 07/01/24 08:37 Contrast Media Allergy Severe Other Uncoded 07/01/24 08:37 Review of Systems Review of Systems: CONSTITUTIONAL: Denies fever, chills, or sweats. EYES: Denies visual changes, redness, or discharge. ENT: Reports sore throat. Denies rhinorrhea, congestion, or otalgia. CARDIOVASCULAR: Denies chest pain, palpitations, or edema. RESPIRATORY: Denies cough or dyspnea. GASTROINTESTINAL: Denies abdominal pain, nausea, vomiting, or diarrhea. GENITOURINARY: Denies dysuria or hematuria. SKIN: Denies rash or itching. MUSCULOSKELETAL: Denies back pain, joint pain, or myalgia. NEUROLOGIC: Denies headache, numbness, dizziness, or weakness. PSYCHIATRIC: Denies anxiety or depression. PMFSH Past Medical History Medical History COPD (chronic obstructive pulmonary disease) Sjogren syndrome with dental involvement History of TIA (transient ischemic attack) 2007 History of DVT (deep vein thrombosis) 2020 Peripheral vascular disease Hypertension Rheumatoid arthritis Lupus Surgical History Surgical History History of laparotomy x2 for ectopic pregnancies Family History Family History Mother Family history of glaucoma Family history of rheumatoid arthritis Family history of arthritis Diabetes mellitus Sibling Asthma Father Family history of alcoholism Grandparent Carcinoma of colon Other Family history of thyroid disease Social History Social History Social History: Patient lives alone in a apartment without pets. Patient states that she drinks 1 glass of wine 1 time a month and does not partake in nicotine/tobacco products or illicit drugs. Smoking status: Never smoker Second hand tobacco smoke exposure: No Alcohol intake: current Drinks per week: 1 Substance use: never Substance use type: does not use Lack of Transportation: YES Lack of Food: Often True Current Housing: I Have Housing Concerned About Future Housing: No Difficulty Paying Gas/Electric Bills: YES Difficulty Paying for Meds: No Currently Unemployed: No Education: Associate Degree Difficulty w/ Childcare or Family Care: No Spiritual care concerns: No Exam Narrative: GENERAL: Well-appearing, well-nourished, and in no acute distress. HEAD: Normocephalic, atraumatic. EYES: PERRLA and EOMI. ENT: Nares clear, no rhinorrhea or epistaxis. Mucous membranes moist. Oropharynx without tonsillar hypertrophy exudate or other lesions however there is posterior pharyngeal erythema present. Bilateral TMs pearly sanders nonbulging NECK: Supple. No adenopathy or masses. No carotid bruits or JVD CHEST: Clear to auscultation. No respiratory distress. No wheezes rales or rhonchi HEART: Regular rate and rhythm. No murmur heard. Normal peripheral pulses. ABDOMEN: Soft, nontender, nondistended, normal active bowel sounds. EXTREMITIES: Normal range of motion. No edema. SKIN: Warm, dry, no rash. NEURO: No focal deficits. Alert and oriented x3. PSYCH: Normal mood and affect. Course Course Emergency Course: This is a 65-year-old female who presented for evaluation of a sore throat. Strep, COVID, influenza were all negative. Through shared decision making opted to proceed with antibiotic therapy. Will dc with amoxicillin. Increase hydration. OTC agents for symptom management. Follow up with primary provider. Go to the ER for worsening symptoms. Pt in agreement with plan of care. Level of Care: Express Care Visit Vital Signs Vital signs: Vital Signs Temperature 36.2 C L 06/08/25 09:39 Pulse Rate 80 06/08/25 09:39 Respiratory Rate 16 06/08/25 09:39 Blood Pressure 121/86 06/08/25 09:39 Pulse Oximetry 100 06/08/25 09:39 Temperature 36.2 C L 06/08/25 09:39 Pulse Rate 80 06/08/25 09:39 Respiratory Rate 16 06/08/25 09:39 Blood Pressure 121/86 06/08/25 09:39 Pulse Oximetry 100 06/08/25 09:39 Medical Decision Making Vital Signs Vital Signs: Vital Signs Temperature 36.2 C L 06/08/25 09:39 Pulse Rate 80 06/08/25 09:39 Respiratory Rate 16 06/08/25 09:39 Blood Pressure 121/86 06/08/25 09:39 Pulse Oximetry 100 06/08/25 09:39 Temperature 36.2 C L 06/08/25 09:39 Pulse Rate 80 06/08/25 09:39 Respiratory Rate 16 06/08/25 09:39 Blood Pressure 121/86 06/08/25 09:39 Pulse Oximetry 100 06/08/25 09:39 Lab Data Labs: Lab Results 06/08/25 Range/Units 10:01 POC Influenza A Ag Negative (Negative) POC Influenza B Ag Negative (Negative) POC SARS CoV-2 Ag Negative (Negative) POC Grp A Strep Screen Negative (Negative) Discharge Plan Discharge Clinical Impression: Pharyngitis Patient Disposition: Home Condition: Stable Instructions: Antibiotic Form, Pharyngitis (ED) Patient Language: Micronesian Prescriptions: New amoxicillin 500 mg tablet 500 mg PO Q12H Qty: 20 0RF No Action latanoprost 0.005 % drops 1 drp EACH EYE HS spironolactone 25 mg tablet 25 mg PO DAILY potassium chloride 20 mEq tablet,ER particles/crystals 20 meq PO BID cyclosporine [Restasis] 0.05 % dropperette 1 drp EACH EYE USEASDIRECTD duloxetine 60 mg capsule,delayed release(DR/EC) 60 mg PO DAILY amlodipine 10 mg Tablet 10 mg PO DAILY acetaminophen 650 mg Tablet Extended Release 650 mg PO PRN PRN (Reason: Pain) levothyroxine 88 mcg Tablet 88 mcg PO DAILY clonidine HCl 0.2 mg Tablet 0.2 mg PO BID furosemide 80 mg Tablet 80 mg PO DAILY prednisone 1 mg Tablet 4 mg PO DAILY folic acid 1 mg Tablet 1 mg PO DAILY losartan 50 mg tablet 50 mg PO DAILY alendronate 70 mg tablet 70 mg PO DAILY triamcinolone acetonide 0.1 % ointment 0.1 applic TOPICAL BID albuterol sulfate [Ventolin HFA] 90 mcg/actuation HFA aerosol inhaler 90 mcg INHALATION DAILY fluticasone propionate 50 mcg/actuation spray,suspension 50 mcg INTRANASAL DAILY diclofenac sodium 1 % gel 1 g TOPICAL DAILY Xarelto 20 mg tablet 20 mg PO DAILY Stiolto Respimat 2.5-2.5 mcg/actuation mist 2.5 inh INHALATION DAILY ferrous sulfate [FeroSul] 325 mg (65 mg iron) tablet 325 mg PO DAILY Follow-up/Referrals: Christian,Kye Headley MD [Primary Care Provider] Time of Disposition: 10:13
== END 2025-06-08 10:17 | disposition home or self-care (01) ==
PROVIDERS: Emergency Provider Nurse Practitioner; PCP Family Medicine
DX: J02.9 Acute pharyngitis, unspecified (principal); J44.9 Chronic obstructive pulmonary disease, unspecified; I10 Essential (primary) hypertension; M06.9 Rheumatoid arthritis, unspecified; Z86.73 Personal history of transient ischemic attack (TIA), and cerebral infarction without residual deficits; Z20.822 Contact with and (suspected) exposure to COVID-19
CPT/HCPCS: 87081; 87426; 87804; 87880; 99213; G0463